=== PATIENT | female | born 1960 | race Caucasian/White ===

== ENCOUNTER → 2017-12-03 07:28 | Outpatient (CLI) | payer OTHER, SELFPAY ==
--- NOTE | 2017-12-02 17:12 | BI_ITS ---
MAMMOGRAPHY - BILATERAL SCREENING REASON FOR EXAM: Female, 56 years old. Routine annual screening examination. PERTINENT HISTORY: Grandmother with breast cancer. TECHNIQUE: Digital bilateral breast raul (3D mammographic acquisition) in the CC and MLO projections. 2-D mediolateral oblique (MLO) and craniocaudad (CC) views of both breasts were obtained. CAD: Full Field Digital Mammography with Computer Added Detection was performed. COMPARISON: Comparison is made with prior abdomen examination dated November 30, 2013. FINDINGS: Breast Composition: There are scattered areas of fibroglandular density. There are no dominant masses or suspicious calcifications. There is a 4.8 mm x 4.2 mm well-defined nodule in the upper outer portion of the left breast. This may represent a small intramammary lymph node. Correlation with ultrasound is recommended. No other significant abnormalities are identified. There has been no significant change since the prior study. BI/SCREENING MAMM (CAD), BILAT IMPRESSION: 4.8 mm x 4.2 mm well-defined nodule in the upper outer aspect of the left breast as described. Correlation with ultrasound is recommended. ASSESSMENT CATEGORY: BIRADS Category 0: Incomplete. Need additional imaging evaluation. A letter regarding these results will be sent to the patient by the facility within 30 days. Approximately 10% of breast cancers are not detected by mammography. A normal mammogram should not delay biopsy of a clinically suspicious abnormality. [id number] Electronically Signed: Juan Gu MD at 8:35 EDT Tel [phone], Service support ,
== END ==
PROVIDERS: Family Provider Preventive Medicine Occupational Medicine; PCP Preventive Medicine Occupational Medicine; Visit Provider Preventive Medicine Occupational Medicine
DX: Z12.31 Encounter for screening mammogram for malignant neoplasm of breast (principal)
CPT/HCPCS: 77063; 77067

== ENCOUNTER → 2017-12-06 09:54 | Outpatient (CLI) | payer OTHER, SELFPAY ==
--- NOTE | 2017-12-06 09:59 | US_ITS ---
STUDY: ULTRASOUND BREAST - LEFT REASON FOR EXAM: Female, 56 years old. Abnormal screening mammogram. TECHNIQUE: Axial and longitudinal images of the LEFT breast were performed with a high resolution ultrasound transducer. COMPARISON: Comparison is made with prior mammogram dated December 02, 2017. FINDINGS: LEFT Breast: There is a 3 mm x 4 mm x 3 mm cyst at the 3:00 position in the breast at 3 cm from nipple. An adjacent cyst is seen measuring 3 mm x 4 mm x 5 mm. US/Breast Limited Unilateral IMPRESSION: The mammographic abnormality corresponds to 2 subcentimeter adjacent cysts at the 3:00 position breast ASSESSMENT CATEGORY: BIRADS Category 2: Benign. A letter regarding these results will be sent to the patient by the facility within 30 days. Electronically Signed: Juan Gu MD at 11:14 EDT Tel [phone], Service support ,
== END ==
PROVIDERS: Family Provider Preventive Medicine Occupational Medicine; PCP Preventive Medicine Occupational Medicine; Visit Provider Preventive Medicine Occupational Medicine
DX: R92.8 Other abnormal and inconclusive findings on diagnostic imaging of breast (principal)
CPT/HCPCS: 76642

== ENCOUNTER 2018-05-22 19:12 | Observation (INO) | payer OTHER, SELFPAY ==
[2018-05-22] VITALS (9 sets, daily range): BP systolic 151–202; BP diastolic 83–106; PULSE 83–100; RESP 14–22; TEMP 36.8; O2SAT 96–100; BMI 30.7
--- NOTE | 2018-05-22 19:47 | ED.VISSUMM ---
- ER Visit Summary Date of Service: 05/22/18 Chief Complaint: chest pain History of Present Illness: The patient is a 57 F presents for chest pain for 3-1/2 hours. Pain is described as a pressure in his substernal, with radiation into the left side of the neck and the posterior neck. 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 Pain is continually worsen, now an 8 out of 10. Worse with breathing. Patient has associated sensation that she needs to cough. She took 2 baby aspirin. She had a similar brief episode that resolved on its own 2 months ago. Family history of coronary artery disease and family history of DVT and aortic aneurysm. Patient denies any medical history personally. She is not on any medications. Physical Examination: Vital signs: afebrile, hypertensive at 202/102, no hypoxia on room air General: well nourished, well developed, in no distress Skin: warm, dry, no rash, no pallor HEENT: normocephalic and atraumatic; PERRL, EOMI, moist mucous membranes Cardiovascular: regular rate and rhythm without murmurs, no peripheral edema, 2+ pulses all distal extremities, neck is supple and nontender no chest wall tenderness Respiratory: No increased work of breathing, lungs are clear to auscultation bilaterally, no rales, rhonchi or wheezing Abdominal: Abdomen is soft, nontender with normoactive bowel sounds, no guarding or rebound, no masses MSK: Moves all extremities, no deformities, normal strength Neuro: Awake and alert, oriented ?4. No facial droop, sensation and motor function intact and symmetric Test Results: Abnormal Lab Results 05/22/18 05/22/18 05/22/18 19:20 19:20 19:20 WBC 7.1 RBC 4.28 Hgb 12.9 Hct 38.3 MCV 89.5 MCH 30.1 MCHC 33.7 RDW 12.5 RDW Differential 40.1 Plt Count 337 MPV 9.3 Immature Gran % (Auto) 0.100 Neut % (Auto) 58.5 Lymph % (Auto) 31.0 [place] % (Auto) 8.0 Eos % (Auto) 1.8 Baso % (Auto) 0.6 Absolute Neuts (auto) 4.2 Absolute Lymphs (auto) 2.21 Total Counted Not Reportable D-Dimer Quant (PE/DVT) < 0.27 L Sodium 141 Potassium 3.4 L Chloride 106 Carbon Dioxide 25.0 Anion Gap 10 BUN 10 Creatinine 0.78 Estim Creat Clear Calc 77.38 Est GFR (MDRD) Af Amer 97 Est GFR (MDRD) Non-Af 80 BUN/Creatinine Ratio 12.8 Glucose 137 H Calcium 8.5 Total Bilirubin 0.40 AST 27 ALT 32 Alkaline Phosphatase 114 Troponin I < 0.015 Total Protein 7.7 Albumin 4.0 Globulin 3.7 Albumin/Globulin Ratio 1.1 Lipase 138 05/22/18 22:13 WBC RBC Hgb Hct MCV MCH MCHC RDW RDW Differential Plt Count MPV Immature Gran % (Auto) Neut % (Auto) Lymph % (Auto) [place] % (Auto) Eos % (Auto) Baso % (Auto) Absolute Neuts (auto) Absolute Lymphs (auto) Total Counted D-Dimer Quant (PE/DVT) Sodium Potassium Chloride Carbon Dioxide Anion Gap BUN Creatinine Estim Creat Clear Calc Est GFR (MDRD) Af Amer Est GFR (MDRD) Non-Af BUN/Creatinine Ratio Glucose Calcium Total Bilirubin AST ALT Alkaline Phosphatase Troponin I < 0.015 Total Protein Albumin Globulin Albumin/Globulin Ratio Lipase Clinical Impression(s) from Imaging Studies Chest X-Ray 05/22/18 20:00 IMPRESSION: Normal x-ray examination of the chest. Electronically Signed: Andrés Lyon MD at 21:16 EST , Service support , Medications Given Discontinued Medications Acetaminophen (Tylenol) 1,000 mg PO X1 ONE Stop: 05/22/18 20:01 Last Admin: 05/22/18 20:08 Dose: 1,000 mg Aspirin (Aspirin, Baby) 162 mg PO X1 STA Stop: 05/22/18 19:45 Last Admin: 05/22/18 19:54 Dose: 162 mg Morphine Sulfate () 4 mg IV X1 ONE Stop: 05/22/18 21:46 Last Admin: 05/22/18 21:57 Dose: 4 mg Nitroglycerin (Nitrostat) 0.4 mg SUBLINGUAL Q5M PERLITA Stop: 05/22/18 19:56 Last Admin: 05/22/18 20:20 Dose: 0.4 mg Admin: 05/22/18 20:09 Dose: 0.4 mg Admin: 05/22/18 19:55 Dose: 0.4 mg Ondansetron HCl (Zofran) 4 mg IV X1 ONE Stop: 05/22/18 21:18 Last Admin: 05/22/18 21:40 Dose: 4 mg Emergency Department Course and Treatment: Patient presents for chest pressure for 3.5 hours, and chest pain workup was performed. More baby aspirin and nitroglycerin. She had improvement of the pain after nitro but developed a headache and was given Tylenol. EKG showed a sinus rhythm with no ischemic changes. Troponin negative. Because of her sensation of shortness of breath and difficulty catching her breath, a d-dimer was included and was negative. No leukocytosis. No significant lab derangements. Chest x-ray showed no infiltrates or other abnormalities. Patient began having the pressure return and became nauseated. She was given Zofran and morphine with improvement. 3-hour EKG and troponin were repeated and remained unchanged. At this point patient was having more significant chest pressure and discomfort. She then shared that she had been having shortness of breath with mild exertion for the last 2 months, which is worsened over the last 4 days. Because of patient's continued chest pressure and her recent development of exertional shortness of breath, patient would benefit from further cardiac workup. Her chest x-ray did not show any signs of acute CHF. Patient was discussed with the hospitalist and admitted for further chest pain workup. Treatment Plan: [] Disposition: [] Impression: Chest pain, exertional shortness of breath This note was generated with [employer] dictation software. It may contain incorrect words, spelling, and punctuation that were not noted in review of the chart prior to signing ED Disposition - Plan for ED Patient: Disposition: Acute Care Hospital [facility] Chief Complaint: Chest Pain
--- NOTE | 2018-05-22 19:51 | ED.DCSUM_ITS ---
- ER Visit Summary Date of Service: 05/22/18 Chief Complaint: chest pain History of Present Illness: The patient is a 57 F presents for chest pain for 3- 1/2 hours. Pain is described as a pressure in his substernal, with radiation into the left side of the neck and the posterior neck. 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 Pain is continually worsen, now an 8 out of 10. Worse with breathing. Patient has associated sensation that she needs to cough. She took 2 baby aspirin. She had a similar brief episode that resolved on its own 2 months ago. Family history of coronary artery disease and family history of DVT and aortic aneurysm. Patient denies any medical history personally. She is not on any medications. Physical Examination: Vital signs: afebrile, hypertensive at 202/102, no hypoxia on room air General: well nourished, well developed, in no distress Skin: warm, dry, no rash, no pallor HEENT: normocephalic and atraumatic; PERRL, EOMI, moist mucous membranes Cardiovascular: regular rate and rhythm without murmurs, no peripheral edema, 2+ pulses all distal extremities, neck is supple and nontender no chest wall tenderness Respiratory: No increased work of breathing, lungs are clear to auscultation bilaterally, no rales, rhonchi or wheezing Abdominal: Abdomen is soft, nontender with normoactive bowel sounds, no guarding or rebound, no masses MSK: Moves all extremities, no deformities, normal strength Neuro: Awake and alert, oriented ?4. No facial droop, sensation and motor function intact and symmetric Test Results: Abnormal Lab Results 05/22/18 05/22/18 05/22/18 19:20 19:20 19:20 WBC 7.1 RBC 4.28 Hgb 12.9 Hct 38.3 MCV 89.5 MCH 30.1 MCHC 33.7 RDW 12.5 RDW Differential 40.1 Plt Count 337 MPV 9.3 Immature Gran % (Auto) 0.100 Neut % (Auto) 58.5 Lymph % (Auto) 31.0 [place] % (Auto) 8.0 Eos % (Auto) 1.8 Baso % (Auto) 0.6 Absolute Neuts (auto) 4.2 Absolute Lymphs (auto) 2.21 Total Counted Not Reportable D-Dimer Quant (PE/DVT) < 0.27 L Sodium 141 Potassium 3.4 L Chloride 106 Carbon Dioxide 25.0 Anion Gap 10 BUN 10 Creatinine 0.78 Estim Creat Clear Calc 77.38 Est GFR (MDRD) Af Amer 97 Est GFR (MDRD) Non-Af 80 BUN/Creatinine Ratio 12.8 Glucose 137 H Calcium 8.5 Total Bilirubin 0.40 AST 27 ALT 32 Alkaline Phosphatase 114 Troponin I < 0.015 Total Protein 7.7 Albumin 4.0 Globulin 3.7 Albumin/Globulin Ratio 1.1 Lipase 138 05/22/18 22:13 WBC RBC Hgb Hct MCV MCH MCHC RDW RDW Differential Plt Count MPV Immature Gran % (Auto) Neut % (Auto) Lymph % (Auto) [place] % (Auto) Eos % (Auto) Baso % (Auto) Absolute Neuts (auto) Absolute Lymphs (auto) Total Counted D-Dimer Quant (PE/DVT) Sodium Potassium Chloride Carbon Dioxide Anion Gap BUN Creatinine Estim Creat Clear Calc Est GFR (MDRD) Af Amer Est GFR (MDRD) Non-Af BUN/Creatinine Ratio Glucose Calcium Total Bilirubin AST ALT Alkaline Phosphatase Troponin I < 0.015 Total Protein Albumin Globulin Albumin/Globulin Ratio Lipase Clinical Impression(s) from Imaging Studies Chest X-Ray 05/22/18 20:00 IMPRESSION: Normal x-ray examination of the chest. Electronically Signed: Andrés Lyon MD at 21:16 EST , Service support , Medications Given Discontinued Medications Acetaminophen (Tylenol) 1,000 mg PO X1 ONE Stop: 05/22/18 20:01 Last Admin: 05/22/18 20:08 Dose: 1,000 mg Aspirin (Aspirin, Baby) 162 mg PO X1 STA Stop: 05/22/18 19:45 Last Admin: 05/22/18 19:54 Dose: 162 mg Morphine Sulfate () 4 mg IV X1 ONE Stop: 05/22/18 21:46 Last Admin: 05/22/18 21:57 Dose: 4 mg Nitroglycerin (Nitrostat) 0.4 mg SUBLINGUAL Q5M PERLITA Stop: 05/22/18 19:56 Last Admin: 05/22/18 20:20 Dose: 0.4 mg Admin: 05/22/18 20:09 Dose: 0.4 mg Admin: 05/22/18 19:55 Dose: 0.4 mg Ondansetron HCl (Zofran) 4 mg IV X1 ONE Stop: 05/22/18 21:18 Last Admin: 05/22/18 21:40 Dose: 4 mg Emergency Department Course and Treatment: Patient presents for chest pressure for 3.5 hours, and chest pain workup was performed. More baby aspirin and nitroglycerin. She had improvement of the pain after nitro but developed a headache and was given Tylenol. EKG showed a sinus rhythm with no ischemic changes. Troponin negative. Because of her sensation of shortness of breath and difficulty catching her breath, a d-dimer was included and was negative. No leukocytosis. No significant lab derangements. Chest x-ray showed no infiltrates or other abnormalities. Patient began having the pressure return and became nauseated. She was given Zofran and morphine with improvement. 3- hour EKG and troponin were repeated and remained unchanged. At this point patient was having more significant chest pressure and discomfort. She then shared that she had been having shortness of breath with mild exertion for the last 2 months, which is worsened over the last 4 days. Because of patient's continued chest pressure and her recent development of exertional shortness of breath, patient would benefit from further cardiac workup. Her chest x-ray did not show any signs of acute CHF. Patient was discussed with the hospitalist and admitted for further chest pain workup. Treatment Plan: [] Disposition: [] Impression: Chest pain, exertional shortness of breath This note was generated with [employer] dictation software. It may contain incorrect words, spelling, and punctuation that were not noted in review of the chart prior to signing ED Disposition - Plan for ED Patient: Disposition: Acute Care Hospital [facility] Chief Complaint: Chest Pain
--- NOTE | 2018-05-22 19:53 | ED.RN ---
NO OLD EKG
[2018-05-22] MEDS: Aspirin 81 MG TAB.CHEW 162 MG PO (19:54)
[2018-05-22 20:00] LABS: Absolute Lymphocyte Count 2.21 X10^3/ul (0.83-4.51); Absolute Neutrophil Count 4.2 X10^3/uL (2.0-7.7); Basophil# 0.04 X10^3/uL; Basophil% 0.6 % (0-1); Eosinophil# 0.13 X10^3/uL; Eosinophils% 1.8 % (0-5); Hematocrit 38.3 % (37-47); Hemoglobin 12.9 g/dl (12.0-15.0); Lymphocyte # 2.21 X10^3/ul (4.0); Mean Corp Hgb Conc 33.7 g/gl (32-36); Mean Corpuscular Hgb 30.1 pg (27.0-32.0); Mean Corpuscular Volume 89.5 fL (81-99); Mean Platelet Vol. 9.3 fl (6.2-12.0); Monocyte# 0.57 X10^3/uL; Neutrophil # 4.17 X10^3/uL (2.7-7.7); Neutrophil % 58.5 % (47-70); Platelet Count 337 K/mm3 (150-450); RBC Distribution Width CV 12.5 % (11.6-14.6); RBC Distribution Width SD 40.1 fl (35.1-43.9); Red Blood Count 4.28 M/mm3 (4.2-5.4); White Blood Count 7.1 K/mm3 (4.4-11.0)
--- NOTE | 2018-05-22 20:00 | RAD_ITS ---
STUDY: X-RAY CHEST REASON FOR EXAM: Female, 57 years old. Chest pain TECHNIQUE: Frontal and lateral views of the chest. COMPARISON: None. FINDINGS: The lungs are clear and expanded. There is no demonstrated pleural abnormality. Normal size heart. Normal mediastinum and sherri. Normal visualized pulmonary arteries. Normal visualized aortic arch and descending thoracic aorta. Normal visualized thoracic spine. Normal visualized ribs, clavicles, and shoulders. There is no demonstrated abnormality of the visualized soft tissue structures of the upper abdomen. RAD/Chest PA and Lateral IMPRESSION: Normal x-ray examination of the chest. Electronically Signed: Andrés Lyon MD at 21:16 EST , Service support ,
[2018-05-22 20:01] LABS: POSITIVE COUNT NO; POSITIVE DIFFERENTIAL NO; POSITIVE MORPHOLOGY NO
[2018-05-22 20:06] LABS: D-Dimer Quantitative (DVT/PE) < 0.27 FEU/ug/m (0.27-0.49)
[2018-05-22] MEDS: Acetaminophen 500 MG Tablet 1000 MG PO (20:08)
[2018-05-22 20:23] LABS: ALB/GLOB Ratio 1.1 RATIO (0.9-2.4); AST(SGOT) 27 U/L (15-37); Alanine Aminotransfer ALT/SGPT 32 U/L (13-56); Alkaline Phosphatase 114 U/L (45-117); Anion Gap 10 (5-15); BUN 10 mg/dL (7-18); BUN/Creat Ratio 12.8 RATIO (10-20); Calcium,Total 8.5 mg/dL (8.5-10.1); Chloride 106 mmol/L (98-107); Creatinine, Serum 0.78 mg/dL (0.55-1.02); EST Glomerular Filtration Rate 80 mL/min (>60); Est Glom Filt Rate - Afr Amer 97 mL/min (>60); Estimated Creatinine Clearance 77.38 ml/min; Globulin 3.7 g/dL (2.2-4.2); Glucose 137 mg/dL (74-106); Lipase 138 U/L (73-393); Potassium 3.4 mmol/L (3.5-5.1); Protein, Total 7.7 g/dL (6.4-8.2); Sodium Level 141 mmol/L (136-145)
[2018-05-22] MEDS: Ondansetron 4 MG/2 ML Vial IV (21:40)
[2018-05-22] MEDS: Morphine 4 MG/ML Syringe IV ×2 (21:57→23:39)
--- NOTE | 2018-05-22 21:58 | ED.RN ---
NO OLD EKG
--- NOTE | 2018-05-22 23:09 | HP.PCM_ITS ---
History of Present Illness Date of Admission: 05/23/18 Chief Complaint: chest pain The patient is a 57 year old F with no significant past medical history. She was admitted through the ED with a complaint of chest pain of one days duration. Chest pain was pressure-like and retrosternal, radiates to the left side of her neck and arm and was still mild numbness of her right arm. Says she has had chest pain like this in the past but it was not this severe. She had associated shortness of breath and lightheadedness. She denies any history of DVT or any history of long distance travel or weight loss but admits to having a sedentary job. Her mother had a PE in her 20s and she does not know the cause of it. Review of systems otherwise negative. Chest pain had no relieving factors. On admission the ED, blood pressure was 202/102, was otherwise medically stable. CBC and CMP are within normal limits. Chest x-ray showed no acute cardia pulmonary process. EKG showed no acute ST changes initial troponin was negative. He has been admitted for chest pain to rule out ACS. 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 Denies: Chest Tightness, Edema, Heaviness, Orthopnea, Palpitations Respiratory: Reports: Shortness of Breath, Shortness of breath upon exertion. Denies: Cough, Shortness of breath at rest, Sputum production Gastrointestinal: Denies: Abdominal Pain, Nausea, Vomiting Genitourinary: Denies: Dysuria Musculoskeletal: Denies: Joint Pain, Joint Tenderness Skin: Denies: Rash, Wounds Neurological: Denies: Numbness, Tingling, Focal weakness Psychiatric: Denies: Anxiety, Depression, Homicidal Ideations, Suicidal Ideations Hematologic/ Lymphatic: Denies: Easy Bruising, Easy Bleeding VTE Information - Inpt Only VTE Present on Admission: No VTE Pharm Prophylaxis ordered?: Yes - Physical Exam General: Alert, Oriented x3, Cooperative, No apparent distress HEENT: Atraumatic, PERRLA, EOMI, Normocephalic Oral: Moist Mucosa Neck: Supple, No JVD, Negative Carotid Bruits Lungs: Clear to auscultation, Normal air movement, No rhonchi, No wheeze, No rales Cardiovascular: Regular rate, Regular Rhythm, Normal S1, Normal S2, No murmurs Abdomen: Bowel Sounds Present, Soft, Non Tender, Non-Distended, No Hepato- splenomegaly Extremities: No clubbing, No cyanosis, No edema, Capillary Refill Less than 3 Seconds Skin: No rashes, No breakdown Musculoskeletal: No Tenderness to Palpation of Joints or Extremities Lymphatic: No Cervical, Supraclavicular, or Inguinal Adenopathy Neurological: Cranial nerves II-XII grossly intact Psych/Mental Status: Normal Affect, Appropriate, Alert and oriented to time, place, person, mood and affect Vital Signs Temp Pulse Resp BP Pulse Ox 98.3 F 89 16 153/94 H 96 05/22/18 19:13 05/22/18 22:00 05/22/18 22:00 05/22/18 22:00 05/22/18 22:00 Oxygen Delivery Method Room Air Weight: 195 lb 15.855 oz Body Mass Index (BMI) 30.7 Laboratory Tests Past 24 Hrs 05/22/18 05/22/18 05/22/18 19:20 19:20 19:20 WBC 7.1 RBC 4.28 Hgb 12.9 Hct 38.3 MCV 89.5 MCH 30.1 MCHC 33.7 RDW 12.5 RDW Differential 40.1 Plt Count 337 MPV 9.3 Immature Gran % (Auto) 0.100 Neut % (Auto) 58.5 Lymph % (Auto) 31.0 [place] % (Auto) 8.0 Eos % (Auto) 1.8 Baso % (Auto) 0.6 Absolute Neuts (auto) 4.2 Absolute Lymphs (auto) 2.21 Total Counted Not Reportable D-Dimer Quant (PE/DVT) < 0.27 L Sodium 141 Potassium 3.4 L Chloride 106 Carbon Dioxide 25.0 Anion Gap 10 BUN 10 Creatinine 0.78 Estim Creat Clear Calc 77.38 Est GFR (MDRD) Af Amer 97 Est GFR (MDRD) Non-Af 80 BUN/Creatinine Ratio 12.8 Glucose 137 H Calcium 8.5 Total Bilirubin 0.40 AST 27 ALT 32 Alkaline Phosphatase 114 Troponin I < 0.015 Total Protein 7.7 Albumin 4.0 Globulin 3.7 Albumin/Globulin Ratio 1.1 Lipase 138 05/22/18 22:13 WBC RBC Hgb Hct MCV MCH MCHC RDW RDW Differential Plt Count MPV Immature Gran % (Auto) Neut % (Auto) Lymph % (Auto) [place] % (Auto) Eos % (Auto) Baso % (Auto) Absolute Neuts (auto) Absolute Lymphs (auto) Total Counted D-Dimer Quant (PE/DVT) Sodium Potassium Chloride Carbon Dioxide Anion Gap BUN Creatinine Estim Creat Clear Calc Est GFR (MDRD) Af Amer Est GFR (MDRD) Non-Af BUN/Creatinine Ratio Glucose Calcium Total Bilirubin AST ALT Alkaline Phosphatase Troponin I < 0.015 Total Protein Albumin Globulin Albumin/Globulin Ratio Lipase Diagnostic Data Chest X-Ray 05/22/18 20:00 IMPRESSION: Normal x-ray examination of the chest. Electronically Signed: Andrés Lyon MD at 21:16 EST , Service support , Assessment/Plan 57-year-old female admitted with a complaint of chest pain and found to have elevated blood pressure. 1. Chest pain to rule out ACS * Initial troponin was negative and EKG showed no acute ST changes. * D-dimer was also negative. * Cycle troponins. * For stress test in the morning. * 2. Hypertensive emergency * Blood pressure was in the 200s systolic on admission. Has no history of hypertension. * Blood pressure was down in the 140s at time of review. * IV hydralazine as needed for systolic more than 160 mmHg. * Start p.o. amlodipine 10 mg daily. * 2D echo in the morning * 3. Hypokalemia: Potassium is 3.4. Replace and monitor. DVT prophylaxis: Heparin Code Visit OBSV E&M: 35520 Initial observation care L3
[2018-05-23] VITALS (10 sets, daily range): BP systolic 136–158; BP diastolic 81–95; PULSE 65–103; RESP 9–16; TEMP 36.6–37.1; O2SAT 94–100; BMI 28.0; BMI 28.1
--- NOTE | 2018-05-23 01:24 | NURSING ---
Pt reports change in character of CP. EKG taken and showed now significant change. Will continue to monitor. Plan for Stress ECHO today.
[2018-05-23] MEDS: Acetaminophen 325 MG Tablet 650 MG PO (02:16)
[2018-05-23] MEDS: Aspirin 81 MG TAB.CHEW PO (05:36)
[2018-05-23 06:37] LABS: Absolute Lymphocyte Count 2.11 X10^3/ul (0.83-4.51); Absolute Neutrophil Count 3.7 X10^3/uL (2.0-7.7); Basophil# 0.04 X10^3/uL; Basophil% 0.6 % (0-1); Eosinophil# 0.12 X10^3/uL; Eosinophils% 1.8 % (0-5); Hematocrit 37.9 % (37-47); Hemoglobin 12.8 g/dl (12.0-15.0); Lymphocyte # 2.11 X10^3/ul (4.0); Lymphocyte % 31.8 % (19-41); Mean Corp Hgb Conc 33.8 g/gl (32-36); Mean Corpuscular Hgb 30.6 pg (27.0-32.0); Mean Corpuscular Volume 90.7 fL (81-99); Mean Platelet Vol. 9.6 fl (6.2-12.0); Monocyte# 0.66 X10^3/uL; Neutrophil # 3.69 X10^3/uL (2.7-7.7); Neutrophil % 55.6 % (47-70); Platelet Count 308 K/mm3 (150-450); RBC Distribution Width CV 12.3 % (11.6-14.6); RBC Distribution Width SD 39.8 fl (35.1-43.9); Red Blood Count 4.18 M/mm3 (4.2-5.4); White Blood Count 6.6 K/mm3 (4.4-11.0)
[2018-05-23 06:41] LABS: POSITIVE COUNT NO; POSITIVE DIFFERENTIAL NO; POSITIVE MORPHOLOGY NO; Prothrombin Time (Protime)PT. 13.4 SECONDS (11.7-14.9)
[2018-05-23 06:45] LABS: Anion Gap 8 (5-15); BUN 10 mg/dL (7-18); BUN/Creat Ratio 14.6 RATIO (10-20); Calcium,Total 8.6 mg/dL (8.5-10.1); Chloride 108 mmol/L (98-107); Creatinine, Serum 0.68 mg/dL (0.55-1.02); EST Glomerular Filtration Rate 94 mL/min (>60); Est Glom Filt Rate - Afr Amer 114 mL/min (>60); Estimated Creatinine Clearance 95.39 ml/min; Glucose 90 mg/dL (74-106); Potassium 4.1 mmol/L (3.5-5.1); Sodium Level 141 mmol/L (136-145)
[2018-05-23 07:02] LABS: Partial Thromboplast Time 31.5 Seconds (24.1-36.2)
--- NOTE | 2018-05-23 07:33 | NURSING ---
Pt wanting more information on advanced directives. Dayshift RN aware.
--- NOTE | 2018-05-23 08:00 | STEWCON_ITS ---
Reason For Study: Chest Pain Stress Results Protocol: Oscar Protocol Maximum Predicted HR: 163 bpm Target HR: 139 bpm % Maximum Predicted HR: 110 % DurationHeart Rate Stage (mm:ss) (bpm) BP Comment Baseline 73 130/902/10 Chest Pain; Diluted Definity 2 ML Given Oscar Protocol Stage I 3:00 150 180/722/10 Chest Pain Oscar Protocol Stage II 3:00 164 170/742/10 Chest Pain; Mild Dyspnea Oscar Protocol Stage III 1:30 179 / 2/10 Chest Pain; Moderate Dyspnea Recovery 99 142/862/10 Chest Pain Stress Duration: 7:30 mm:ss Maximum Stress HR: 179 bpm METS: 10 Baseline Echocardiogram Findings The estimated ejection fraction is 65 %. Stress Echo Wall motion Data Resting WM Intermediate WM Stress WM Resting Wall Motion Wall Motion Stress No regional wall motion No regional wall motion abnormalities noted. abnormalities noted. EKG Data Normal intervals are noted. The patient exercised according to the regular Oscar protocol for a total duration of 7:30. The maximum heart rate attained was 179 beats per minute. This was 109% of maximum predicted heart rate. The patient exercised into stage 3 of the Oscar protocol. During stress, there were no ST or T wave changes noted to suggest ischemia. No arrhythmias noted. Interpretation Summary The study was technically difficult. Contrast injection was performed. The estimated ejection fraction is 65 %. Normal, adequate, treadmill echocardiogram. Negative for ischemia by EKG and echocardiographic criteria. Patient had baseline atypical 2 out of 10 chest pain prior to test initiation, which remained the case during test. Test terminated due to moderate dyspnea. Hypertensive blood pressure response to exercise. Average exercise capacity for age. Final LVEF is 75%. No complications. Doppler Measurements & Calculations TR max caridad: 265.1 cm/sec TR max P.1 mmHg Ordering Physician: Cordelia Amaya Referring Physician: Guzman Hernandez Performed By: Marianne Lane, KENNACS, RVT
[2018-05-23] MEDS: amLODIPine 10 MG Tablet PO (10:06)
--- NOTE | 2018-05-23 13:25 | DCINST_ITS ---
- Discharge Diagnoses Reason(s) for Visit for Discharge Instructions: Chest pain, elevated BP You will use the following diet at home:: Cardiac Your food should be the consistency of: Regular Your liquids should be the consistency of: Regular/Thin Discharge Activity: Return to Normal Activity Additional Instructions: Take all your medications. Measure your BP everyday about the same time. Follow-up with your primary doctor within 2 weeks with a log of your BP readings. Allergies/Adverse Reactions: Allergies Sulfa (Sulfonamide Antibiotics) Allergy (Verified 05/22/18 19:13) Hives trimethoprim Allergy (Verified 05/22/18 19:13) Hives Medications to take at Discharge Amlodipine [Norvasc] 10 mg PO DAILY #30 tab 05/23/18 Aspirin [Aspirin, Baby] 81 mg PO DAILY@0800 #30 tab.chew 05/23/18 The following prescriptions were given: Amlodipine [Norvasc] 10 mg PO DAILY #30 tab Aspirin [Aspirin, Baby] 81 mg PO DAILY@0800 #30 tab.chew Primary Care Physician: Serjio Moreno DO [Primary Care Provider] - Please follow up with your Primary Care Physician in: within 2 weeks Test Results: Test results from this visit will be discussed in further detail at your follow- up appointment, if applicable. Proposed Discharge Date: 05/23/18
--- NOTE | 2018-05-23 14:15 | PCM.DC.SUM ---
Discharge Date and Diagnosis Date of Admission: 05/23/18 Date of Discharge: 05/23/18 - Primary Discharge Diagnosis Chest pain, ACS ruled out Hypertensive emergency Hypokalemia - Secondary Discharge Diagnosis Hypertension Hospital Course and Treatment Imaging Results: 05/23/18 08:00 Stress Test Echo W/Contrast [ECHO] Routine Clinical Impression(s) from Imaging Studies Chest X-Ray 05/22/18 20:00 IMPRESSION: Normal x-ray examination of the chest. Electronically Signed: Andrés Lyon MD at 21:16 EST , Service support , None Operations: None Procedures: 2-D Echocardiogram, Stress test Summary of Care Provided: The patient is a 57 year old F with no significant past medical history was admitted with complaints of chest pain ongoing for 1 day. Chest pain was described as pressure-like, retrosternal and radiates to left side of the neck and associated with numbness of the right. Admitting blood pressure was [id number]. Blood work was unremarkable. Chest x-ray showed no acute cardiopulmonary process. EKG was unremarkable. Troponins were negative. Patient was admitted to telemetry bed with no acute events overnight. She underwent a stress test that was negative. She was started on amlodipine for hypertensive emergency with better control of blood pressure or discharge. Subjective: On the day of discharge, patient had no complaints. Denied any dizziness or shortness of breath. Slight headache after being kept n.p.o. for stress test. Objective: Physical Exam General: Alert, Oriented x3, Cooperative, No apparent distress HEENT: Atraumatic, PERRLA, EOMI, Normocephalic Oral: Moist Mucosa Neck: Supple, No JVD, Negative Carotid Bruits Lungs: Clear to auscultation, Normal air movement, No rhonchi, No wheeze, No rales Cardiovascular: Regular rate, Regular Rhythm, Normal S1, Normal S2, No murmurs Abdomen: Bowel Sounds Present, Soft, Non Tender, Non-Distended, No Hepato-splenomegaly Extremities: No clubbing, No cyanosis, No edema, Capillary Refill Less than 3 Seconds Skin: No rashes, No breakdown Musculoskeletal: No Tenderness to Palpation of Joints or Extremities Lymphatic: No Cervical, Supraclavicular, or Inguinal Adenopathy Neurological: Cranial nerves II-XII grossly intact Psych/Mental Status: Normal Affect, Appropriate, Alert and oriented to time, place, person, mood and affect - Physical Exam Vital Signs Temp Pulse Resp BP Pulse Ox 98.7 F 83 16 136/86 H 100 05/23/18 13:52 05/23/18 13:52 05/23/18 13:52 05/23/18 13:52 05/23/18 13:52 Oxygen Delivery Method Room Air Weight: 86.2 kg Body Mass Index (BMI) 28.0 Intake and Output for Last 24 Hours 05/21/18 05/22/18 05/23/18 23:59 23:59 23:59 Intake Total 70 / 70 Balance 70 / 70 Laboratory Tests Past 24 Hrs 05/22/18 05/22/18 05/22/18 19:20 19:20 19:20 WBC 7.1 RBC 4.28 Hgb 12.9 Hct 38.3 MCV 89.5 MCH 30.1 MCHC 33.7 RDW 12.5 RDW Differential 40.1 Plt Count 337 MPV 9.3 Immature Gran % (Auto) 0.100 Neut % (Auto) 58.5 Lymph % (Auto) 31.0 [place] % (Auto) 8.0 Eos % (Auto) 1.8 Baso % (Auto) 0.6 Absolute Neuts (auto) 4.2 Absolute Lymphs (auto) 2.21 Total Counted Not Reportable PT INR APTT D-Dimer Quant (PE/DVT) < 0.27 L Sodium 141 Potassium 3.4 L Chloride 106 Carbon Dioxide 25.0 Anion Gap 10 BUN 10 Creatinine 0.78 Estim Creat Clear Calc 77.38 Est GFR (MDRD) Af Amer 97 Est GFR (MDRD) Non-Af 80 BUN/Creatinine Ratio 12.8 Glucose 137 H Calcium 8.5 Total Bilirubin 0.40 AST 27 ALT 32 Alkaline Phosphatase 114 Troponin I < 0.015 Total Protein 7.7 Albumin 4.0 Globulin 3.7 Albumin/Globulin Ratio 1.1 Lipase 138 05/22/18 05/23/18 05/23/18 22:13 00:45 05:44 WBC RBC Hgb Hct MCV MCH MCHC RDW RDW Differential Plt Count MPV Immature Gran % (Auto) Neut % (Auto) Lymph % (Auto) [place] % (Auto) Eos % (Auto) Baso % (Auto) Absolute Neuts (auto) Absolute Lymphs (auto) Total Counted PT INR APTT D-Dimer Quant (PE/DVT) Sodium 141 Potassium 4.1 Chloride 108 H Carbon Dioxide 25.0 Anion Gap 8 BUN 10 Creatinine 0.68 Estim Creat Clear Calc 95.39 Est GFR (MDRD) Af Amer 114 Est GFR (MDRD) Non-Af 94 BUN/Creatinine Ratio 14.6 Glucose 90 Calcium 8.6 Total Bilirubin AST ALT Alkaline Phosphatase Troponin I < 0.015 < 0.015 Total Protein Albumin Globulin Albumin/Globulin Ratio Lipase 05/23/18 05/23/18 05:44 05:44 WBC 6.6 RBC 4.18 L Hgb 12.8 Hct 37.9 MCV 90.7 MCH 30.6 MCHC 33.8 RDW 12.3 RDW Differential 39.8 Plt Count 308 MPV 9.6 Immature Gran % (Auto) 0.200 Neut % (Auto) 55.6 Lymph % (Auto) 31.8 [place] % (Auto) 10.0 Eos % (Auto) 1.8 Baso % (Auto) 0.6 Absolute Neuts (auto) 3.7 Absolute Lymphs (auto) 2.11 Total Counted Not Reportable PT 13.4 INR 1.0 APTT 31.5 D-Dimer Quant (PE/DVT) Sodium Potassium Chloride Carbon Dioxide Anion Gap BUN Creatinine Estim Creat Clear Calc Est GFR (MDRD) Af Amer Est GFR (MDRD) Non-Af BUN/Creatinine Ratio Glucose Calcium Total Bilirubin AST ALT Alkaline Phosphatase Troponin I Total Protein Albumin Globulin Albumin/Globulin Ratio Lipase Discharge Diet: Low fat/ Low Cholesterol, 2000 mg Sodium Diet Discharge Activity: Return to Normal Activity Home Medications: Medications to take at Discharge Amlodipine [Norvasc] 10 mg PO DAILY #30 tab 05/23/18 Amlodipine [Norvasc] 10 mg PO DAILY #5 tablet 05/23/18 Aspirin [Aspirin, Baby] 81 mg PO DAILY@0800 #30 tab.chew 05/23/18 Following Prescrptions Were Given to Patient: Amlodipine [Norvasc] 10 mg PO DAILY #30 tab Amlodipine [Norvasc] 10 mg PO DAILY #5 tablet Aspirin [Aspirin, Baby] 81 mg PO DAILY@0800 #30 tab.chew Primary Care Physician: Serjio Moreno DO [Primary Care Provider] - Please follow up with your Primary Care Physician in: within 2 weeks Disposition: Home Minutes spent on discharge:: 40 Patient Condition:: Stable Medical Necessity - Tobacco Use Smoking Status: Never smoker Tobacco Use: Non-smoker Meaningful Use Info Meaningful Use Diagnoses (Choose all that apply): None applicable Code Visit OBSV E&M: 30747 Observation care discharge
--- NOTE | 2018-05-23 14:54 | CHAPLAIN ---
Type of Pastoral Visit _x__ Initial Visit ___ Follow-up Visit ___ On-call Visit ___ General Patient Visit ___ Spiritual Assessment ___ Family Conference ___ Bereavement ___ Rapid Response ___ Code Blue ___ Other (describe below) Pastoral Care Referral From _x__ Patient ___ Family ___ Nurse ___ Physician ___ Brick Paving Checker ___ Beverage Inspection Machine Tender ___ Other (describe below) Sacrament/Intervention _x__ Active listening ___ Anointing ___ Scientologist ___ Bereavement ___ Communion ___ Margaux exploration ___ _x__ Life review ___ Prayer ___ Reconciliation ___ Sacrament of Sick _x__ Supportive presence ___ Wedding ___ Other (describe below) Pastoral Comments
== END 2018-05-23 14:13 | disposition home or self-care (01) ==
LOC: ED 19:29 → PCU 23:38
PROVIDERS: Admitting Provider Student in an Organized Health Care Education/Training Program; Emergency Provider Emergency Medicine; Family Provider Preventive Medicine Occupational Medicine; PCP Preventive Medicine Occupational Medicine; Visit Provider Internal Medicine
DX: R07.89 Other chest pain (principal); I16.1 Hypertensive emergency; I10 Essential (primary) hypertension; E87.6 Hypokalemia; G44.40 Drug-induced headache, not elsewhere classified, not intractable; T46.3X5A Adverse effect of coronary vasodilators, initial encounter; R06.02 Shortness of breath; R20.0 Anesthesia of skin; Z82.49 Family history of ischemic heart disease and other diseases of the circulatory system
CPT/HCPCS: 36415; 71046; 80048; 80053; 83690; 84484; 85025; 85379; 85610; 85730; 93005; 93017; 93350; 96374; 96375; 96376; 99218; 99284; Q9957; A4216; C8928; G0378; J2405

== ENCOUNTER → 2018-06-13 12:10 | Outpatient (CLI) | payer OTHER, SELFPAY ==
[2018-05-23 00:37] VITALS: BMI 28.0
[2018-06-13 14:26] LABS: Thyroid Stim Hormone (TSH) 0.88 uIU/mL (0.358-3.74)
== END ==
PROVIDERS: Family Provider Preventive Medicine Occupational Medicine; PCP Preventive Medicine Occupational Medicine; Referring Provider Preventive Medicine Occupational Medicine; Visit Provider Preventive Medicine Occupational Medicine
DX: I10 Essential (primary) hypertension (principal)
CPT/HCPCS: 36415; 84443

== ENCOUNTER → 2018-07-19 11:03 | Outpatient (CLI) | payer OTHER, SELFPAY ==
[2018-07-19 08:44] VITALS: BMI 27.0
[2018-07-19 11:41] LABS: Absolute Lymphocyte Count 1.45 X10^3/ul (0.83-4.51); Absolute Neutrophil Count 3.6 X10^3/uL (2.0-7.7); Basophil# 0.03 X10^3/uL; Basophil% 0.5 % (0-1); Eosinophils% 1.8 % (0-5); Hematocrit 41.1 % (37-47); Hemoglobin 13.5 g/dl (12.0-15.0); Lymphocyte # 1.45 X10^3/ul (4.0); Lymphocyte % 25.7 % (19-41); Mean Corp Hgb Conc 32.8 g/gl (32-36); Mean Corpuscular Hgb 29.6 pg (27.0-32.0); Mean Corpuscular Volume 90.1 fL (81-99); Mean Platelet Vol. 9.5 fl (6.2-12.0); Monocyte% 8.8 % (0-10); Neutrophil # 3.56 X10^3/uL (2.7-7.7); Platelet Count 357 K/mm3 (150-450); RBC Distribution Width CV 12.4 % (11.6-14.6); RBC Distribution Width SD 40.3 fl (35.1-43.9); Red Blood Count 4.56 M/mm3 (4.2-5.4); White Blood Count 5.7 K/mm3 (4.4-11.0)
[2018-07-19 11:44] LABS: POSITIVE COUNT NO; POSITIVE DIFFERENTIAL NO; POSITIVE MORPHOLOGY NO
[2018-07-19 11:49] LABS: Prothrombin Time (Protime)PT. 13.5 SECONDS (11.7-14.9)
[2018-07-19 12:14] LABS: AST(SGOT) 26 U/L (15-37); Alanine Aminotransfer ALT/SGPT 35 U/L (13-56); Albumin, Serum 4.2 g/dL (3.2-5.0); Alkaline Phosphatase 121 U/L (45-117); Anion Gap 9 (5-15); BUN 13 mg/dL (7-18); BUN/Creat Ratio 15.3 RATIO (10-20); Bilirubin, Direct 0.13 mg/dL (0.00-0.30); Calcium,Total 9.7 mg/dL (8.5-10.1); Chloride 104 mmol/L (98-107); Cholesterol 213 mg/dL (200); Creatinine, Serum 0.85 mg/dL (0.55-1.02); EST Glomerular Filtration Rate 73 mL/min (>60); Est Glom Filt Rate - Afr Amer 88 mL/min (>60); Globulin 4.1 g/dL (2.2-4.2); Glucose 100 mg/dL (74-106); High Density Lipoprotein 35 mg/dL; Potassium 4.2 mmol/L (3.5-5.1); Protein, Total 8.3 g/dL (6.4-8.2); Sodium Level 142 mmol/L (136-145); Triglycerides 184 mg/dL; Very Low Density Lipoprotein 37 mg/dL (5-40)
== END ==
PROVIDERS: Family Provider Preventive Medicine Occupational Medicine; PCP Preventive Medicine Occupational Medicine; Referring Provider Internal Medicine Cardiovascular Disease; Visit Provider Internal Medicine Cardiovascular Disease
DX: R06.02 Shortness of breath (principal); I10 Essential (primary) hypertension; R07.9 Chest pain, unspecified
CPT/HCPCS: 36415; 80048; 80061; 80076; 85025; 85610

== ENCOUNTER → 2018-07-20 13:09 | Outpatient (CLI) | payer OTHER, SELFPAY ==
[2018-05-23 00:37] VITALS: BMI 28.0
[2018-07-19 08:44] VITALS: BMI 27.0
--- NOTE | 2018-07-20 13:12 | CDU_ITS ---
Reason For Study: HYPERTENSION Rt. Velocities/BP Lt. Velocities/BP Prox CCA 95.0/25.8 cm/sec. Prox CCA 108.0/21.1 cm/sec. Mid CCA 106.0/27.6 cm/sec. Mid CCA 111.0/26.4 cm/sec. Dist CCA 93.8/24.0 cm/sec. Dist CCA 97.9/28.7 cm/sec. Prox ICA 84.4/25.8 cm/sec. Prox ICA 69.8/27.6 cm/sec. Mid ICA 83.3/27.6 cm/sec. Mid ICA 76.8/28.7 cm/sec. Dist ICA 78.6/25.2 cm/sec. Dist ICA 70.4/29.3 cm/sec. Rt. ICA/CCA = .80. Lt. ICA/CCA = .69. Prox ECA 96.7/18.2 cm/sec. Prox ECA 99.1/19.3 cm/sec. Rt. Vert. 51.6/15.2 cm/sec. Lt. Vert. 44.0/15.2 cm/sec. Right Extracranial There is intimal thickening but no significant atherosclerotic plaque noted in the right common carotid artery. There is intimal thickening but no significant atherosclerotic plaque noted in the right internal carotid artery. There is intimal thickening but no significant atherosclerotic plaque noted in the right external carotid artery. Antegrade flow is noted in the right vertebral artery. There is heterogeneous, irregular atherosclerotic plaque noted in the right bulb. Left Extracranial There is intimal thickening but no significant atherosclerotic plaque noted in the left common carotid artery. There is no significant atherosclerotic plaque noted in the left internal carotid artery. There is no significant atherosclerotic plaque noted in the left external carotid artery. Antegrade flow is noted in the left vertebral artery. There is heterogeneous, irregular atherosclerotic plaque noted in the left bulb. Procedure Carotid Duplex 81024. Exam performed in department. Interpretation Summary Minimal plague at the proximal right internal carotid with <50% stenosis. No significant disease right external carotid No significant plague left internal and external carotids with <50% stenosis of the internal carotid. Patent and antegrade vertebrals bilaterally Ordering Physician: Serjio Moreno Referring Physician: Guzman Hernandez MD Performed By: Courtney Bustillos RVT
== END ==
PROVIDERS: Family Provider Preventive Medicine Occupational Medicine; PCP Preventive Medicine Occupational Medicine; Referring Provider Preventive Medicine Occupational Medicine; Visit Provider Preventive Medicine Occupational Medicine
DX: I10 Essential (primary) hypertension (principal)
CPT/HCPCS: 93880

== ENCOUNTER → 2018-07-21 08:56 | Outpatient (CLI) | payer OTHER, SELFPAY ==
[2018-07-19 08:44] VITALS: BMI 27.0
--- NOTE | 2018-07-21 08:57 | ECHOD_ITS ---
Reason For Study: CHEST PAIN Procedure This was a 2D Doppler, Color Flow transthoracic echocardiogram. Exam performed in department. Left Ventricle Normal size and thickness. The estimated ejection fraction is 65 %. Stage 1 diastolic dysfunction. No regional wall motion abnormalities noted. Right Ventricle Normal size and thickness. Normal systolic function. Atria Normal left atrium. Normal right atrium. Normal atrial septum. Mitral Valve Mild focal mitral valve thickening. Mild (1+) posteriorly directed mitral valve insufficiency. Tricuspid Valve Normal tricuspid valve. Mild (1+) tricuspid valve insufficiency. Right ventricular systolic pressure estimated to be 30 mmHg. Aortic Valve Trisinus/trileaflet aortic valve. Trivial aortic valve insufficiency. Pulmonic Valve Normal pulmonic valve. Trivial pulmonic valve insufficiency. Great Vessels Normal aortic root. Normal arch. Normal inferior vena cava. Inferior vena cava collapse with respiration. Pericardium/Pleural No pericardial effusion. MMode/2D Measurements & Calculations LVIDd: 4.0 cm IVSd: 0.96 cm Ao root diam: 3.3 cm LVIDs: 2.7 cm LVPWd: 0.76 cm RVDd: 3.4 cm FS: 32.8 % LAV(MOD-bp): 58.9 ml LVAd ap4: 34.5 cm2 SV(MOD-sp4): 69.8 ml LAV(MOD-bp) Indexed: 29.3 ml/m2 EDV(MOD-sp4): 104.9 ml LAV(MOD-sp2): 48.9 ml EDV(sp4-el): 113.7 ml LAV(MOD-sp4): 60.8 ml LVAs ap4: 16.8 cm2 ESV(MOD-sp4): 35.1 ml ESV(sp4-el): 36.3 ml EF(MOD-sp4): 66.5 % EF(sp4-el): 68.1 % SV(sp4-el): 77.4 ml LA A4 area: 20.6 cm2 LA dimension(2D): 3.8 cm RA A4 area: 10.5 cm2 Time Measurements MV dec time: 0.23 sec Doppler Measurements & Calculations MV E max willie: 105.8 cm/sec Lat Peak E' Willie: 9.0 cm/sec Med Peak E' Willie: 7.9 cm/sec MV A max willie: 154.9 cm/sec E/E' lat: 11.8 E/E' med: 13.3 MV E/A: 0.68 Ao V2 max: 178.4 cm/sec LV V1 max: 130.1 cm/sec PA V2 max: 108.9 cm/sec Ao max P.7 mmHg LV V1 max P.8 mmHg TR max willie: 250.4 cm/sec TR max P.1 mmHg Interpretation Summary The estimated ejection fraction is 65 %. Stage 1 diastolic dysfunction. Mild (1+) posteriorly directed mitral valve insufficiency. Mild (1+) tricuspid valve insufficiency. Right ventricular systolic pressure estimated to be 30 mmHg. Trivial aortic valve insufficiency. There is no comparison study available. Ordering Physician: Guzman Hernandez Referring Physician: NICOLA CHAU Performed By: Marianne Lane, BRAEDEN, RVT
== END ==
PROVIDERS: Family Provider Preventive Medicine Occupational Medicine; PCP Preventive Medicine Occupational Medicine; Referring Provider Internal Medicine Cardiovascular Disease; Visit Provider Internal Medicine Cardiovascular Disease
DX: R06.02 Shortness of breath (principal); R07.9 Chest pain, unspecified; I10 Essential (primary) hypertension
CPT/HCPCS: 93306

== ENCOUNTER 2018-07-25 06:54 | Day surgery (SDC) | payer OTHER, SELFPAY ==
[2018-07-19 08:44] VITALS: BMI 27.0
--- NOTE | 2018-07-19 10:32 | RAD_ITS ---
STUDY: X-RAY CHEST REASON FOR EXAM: Female, 57 years old. Preprocedure assessment TECHNIQUE: Frontal and lateral views of the chest were obtained. COMPARISON: May 22, 2018 FINDINGS: Lines and tubes: None. Lungs: Adequately aerated. No focal airspace opacities. Pleura: No demonstrated abnormality. Mediastinum/sherri: Unremarkable. Cardiovascular: Normal size cardiac silhouette. Central vascularity unremarkable. Thoracic aorta unremarkable. Soft tissues: Unremarkable. Bones: Mild degenerative changes in spine and shoulders. Upper abdomen: No demonstrated abnormality. RAD/Chest PA and Lateral IMPRESSION: No significant cardiopulmonary abnormalities. Electronically Signed: Claudette Arreola MD at 13:57 EST , Service support ,
[2018-07-22 09:02] VITALS: BMI 27.0
--- NOTE | 2018-07-25 09:08 | CL.D_ITS ---
Patient Name: DESMOND HART I Study Date: 07/25/2018 Performing: Guzman Hernandez MD Ht: 68.89 inches 175 cm : 1960 Wt: 182.98 lbs 83 kg Age: 57 Gender: female BSA: 1.99 PROCEDURE(S) PERFORMED KM90-[id number]/COR/LV CLINICAL PROFILE AND INDICATIONS Indications: New Onset Angina <= 2 months, Suspected CAD Heart Failure: None Stress/Imaging Stress Echocardiogram: Yes Result: NegativeStress Echocardiogram: Negative Angina Classification Anginal Classification w/in 2 Weeks: CCS II CAD Presentations: Symptom unlikely to be ischemic. Comorbidities/Risk Factors: Hypertension Dyslipidemia CONCLUSIONS Non obstructive coronary arteries Normal LV size, wall motion,and systolic function Perserved Left Ventricular systolic function with normal EDP LVEF: by LV gram 65 % RECOMMENDATIONS Plavix for at least 12 months Management as per referring Wood Heel Back [employer]iner Medical therapy vs. Percutaneous Intervention If pt has recurrent exertional anginal symptoms despite maximal medical therapy, could consider PCI o f distal LAD. Vessel is near the apex and is about a 2.0 mm vessel. Start lipitor 20mg po qhs and repeat FLP in 6 weeks. Manual sheath removal. DESCRIPTION OF PROCEDURE The patient arrived to the procedure lab. The risks and benefits of the procedure as well as a full d escription of our services here and current unavailability of surgical backup were fully explained to the patient and/or their significant other prior to the catheterization. The Timeout was completed, verifying the correct patient and procedure. The patient's procedural site was prepped and draped in the usual fashion. Local anesthetic was given subcutaneously to right groin region with Lidocaine 2%. Using a modified Seldinger technique, arterial access was obtained via the right femoral artery, a 4 Fr sheath was inserted Left Coronary Artery selective angiography was performed in multiple views us ing a 4 Fr. JL5 catheter. Right Coronary Artery selective angiography was then performed in multiple views using a 4 Fr. 3DRC catheter. Left Ventriculography was performed in MATA projection using a 4 Fr . Pigtail catheter. LV to AO pullback pressures were then recorded. CORONARY ANGIOGRAPHY DOMINANCE: Left Dominant LEFT HEART ASSESSMENT Left Ventricular Ejection Fraction: by LV Gram 65 % Normal LV wall motion Normal Left Ventricular systolic function LVEDP: 10 mmHg Normal Left Ventricular End Diastolic Pressure LEFT MAIN: Angiographically normal LEFT ANTERIOR DECENDING ARTERY: DISTAL LAD: 60 % Stenosis, at apex in 2.0 mm part of the vessel. CIRCUMFLEX ARTERY: Angiographically normal RIGHT CORONARY ARTERY: Angiographically normal COMPLICATIONS No Complications PROCEDURE MEDICATIONS Versed 1 mg IV Oxygen: 2 L/min via nasal cannula Plavix 75 mg PO 07/25/2018 07:22:01 SUMMARY OF HEMODYNAMIC DATA Time AIR REST ECG 07:30:26 AO 139/70 (99) SA 08:51:07 LV 123/-12, 6 08:57:23 LV 124/-15, 10 08:57:29 LVp 128/-18, 12 08:57:34 AOp 130/67 (95) 08:57:39 Signed By Guzman Hernandez MD On 07/25/2018 09:08:26 Guzman Hernandez MD
== END 2018-07-25 14:00 | disposition home or self-care (01) ==
LOC: CLSP 06:56
PROVIDERS: Family Provider Preventive Medicine Occupational Medicine; PCP Preventive Medicine Occupational Medicine; Referring Provider Internal Medicine Cardiovascular Disease; Visit Provider Internal Medicine Cardiovascular Disease
DX: R07.9 Chest pain, unspecified (principal); R06.02 Shortness of breath; I10 Essential (primary) hypertension; E78.5 Hyperlipidemia, unspecified; Z79.82 Long term (current) use of aspirin; Z82.49 Family history of ischemic heart disease and other diseases of the circulatory system
CPT/HCPCS: 71046; 93458; 99152; J7040; C1769; C1894; Q9967

== ENCOUNTER → 2018-11-16 | Outpatient (CLI) | payer OTHER, SELFPAY ==
[2018-07-22 09:02] VITALS: BMI 27.0
[2018-11-16 09:05] LABS: AST(SGOT) 24 U/L (15-37); Alanine Aminotransfer ALT/SGPT 22 U/L (13-56); Albumin, Serum 3.8 g/dL (3.2-5.0); Alkaline Phosphatase 98 U/L (45-117); Bilirubin, Direct 0.17 mg/dL (0.00-0.30); Cholesterol 150 mg/dL (200); Globulin 3.6 g/dL (2.2-4.2); High Density Lipoprotein 47 mg/dL; Protein, Total 7.4 g/dL (6.4-8.2); Triglycerides 111 mg/dL; Very Low Density Lipoprotein 22 mg/dL (5-40)
== END | disposition home or self-care (01) ==
LOC: LAB.FUTURE 07:43
PROVIDERS: Internal Medicine Cardiovascular Disease; Family Provider Preventive Medicine Occupational Medicine; PCP Preventive Medicine Occupational Medicine; Referring Provider Preventive Medicine Occupational Medicine; Visit Provider Preventive Medicine Occupational Medicine
DX: E78.5 Hyperlipidemia, unspecified (principal)
CPT/HCPCS: 36415; 80061; 80076

== ENCOUNTER → 2019-03-14 07:48 | Outpatient (CLI) | payer OTHER, SELFPAY ==
[2018-12-29 09:21] VITALS: BMI 25.3
== END ==
PROVIDERS: Family Provider Preventive Medicine Occupational Medicine; PCP Preventive Medicine Occupational Medicine; Referring Provider Nurse Practitioner Family; Visit Provider Nurse Practitioner Family
DX: Z12.11 Encounter for screening for malignant neoplasm of colon (principal)
CPT/HCPCS: 82274

== ENCOUNTER → 2019-03-30 07:19 | Outpatient (CLI) | payer OTHER, SELFPAY ==
[2018-12-29 09:21] VITALS: BMI 25.3
--- NOTE | 2019-03-30 07:20 | BI_ITS ---
MAMMOGRAPHY - BILATERAL SCREENING REASON FOR EXAM: Female, 58 years old. Routine annual screening examination. PERTINENT HISTORY: Grandmother with breast cancer. Prior left ultrasound-guided breast biopsy. TECHNIQUE: Digital bilateral breast bill (3D mammographic acquisition) in the CC and MLO projections. 2-D mediolateral oblique (MLO) and craniocaudad (CC) views of both breasts were obtained. CAD: Full Field Digital Mammography with Computer Added Detection was performed. COMPARISON: Comparison is made with prior study dated December 02, 2017. FINDINGS: Breast Composition: There are scattered areas of fibroglandular density. There are no dominant masses or suspicious calcifications. Benign-appearing bilateral axillary lymph nodes. No other significant abnormalities are identified. There has been no significant change since the prior study. BI/SCREEN MAMM (CAD) W/BILL BILAT IMPRESSION: Stable bilateral screening mammogram. Yearly follow-up mammogram recommended. (A) ASSESSMENT CATEGORY: BIRADS Category 2: Benign. A letter regarding these results will be sent to the patient by the facility within 30 days. Approximately 10% of breast cancers are not detected by mammography. A normal mammogram should not delay biopsy of a clinically suspicious abnormality. [id number] Electronically Signed: Juan Gu, at 9:09 EDT , Service support ,
== END ==
PROVIDERS: Family Provider Preventive Medicine Occupational Medicine; PCP Preventive Medicine Occupational Medicine; Referring Provider Nurse Practitioner Family; Visit Provider Nurse Practitioner Family
DX: Z12.31 Encounter for screening mammogram for malignant neoplasm of breast (principal)
CPT/HCPCS: 77063; 77067

== ENCOUNTER → 2019-05-15 17:29 | Outpatient (CLI) | payer OTHER, SELFPAY ==
[2018-12-29 09:21] VITALS: BMI 25.3
--- NOTE | 2019-05-15 17:37 | CT_ITS ---
STUDY: CTA BRAIN WITH AND WITHOUT CONTRAST REASON FOR EXAM: Female, 58 years old. Visual changes. Neck pain. Family history of intracranial aneurysm. RADIATION DOSAGE (If Supplied By Facility): CTDIvol = ( 27.29 ) mGy, DLP = ( 1242.89 ) mGycm TECHNIQUE: Transaxial CTA imaging of the brain was performed pre and post contrast administration. The examination was performed with intravenous administration of IV 100mL Isovue-370. Individualized dose optimization techniques were used for this CT. COMPARISON: None. FINDINGS: Normal soft tissue structures. Normal calvarium. Normal size ventricles and extra-axial spaces for the patient''s age. Normal white matter tracts of the cerebral hemispheres. Normal basal ganglia and thalami. Normal brainstem. Normal cerebellum. There is no intracranial hemorrhage. There are no findings of an acute ischemic infarction. Empty sella turcica. Normal visualized paranasal sinuses. CT/CTA Head W/WO Contrast IMPRESSION: Normal CTA of the brain. No intracranial aneurysm. Electronically Signed: Adarsh Botello MD at 0:29 EST , Service support ,
== END ==
PROVIDERS: Family Provider Preventive Medicine Occupational Medicine; PCP Preventive Medicine Occupational Medicine; Referring Provider Nurse Practitioner Family
DX: H33.20 Serous retinal detachment, unspecified eye (principal); Z82.49 Family history of ischemic heart disease and other diseases of the circulatory system; H53.9 Unspecified visual disturbance
CPT/HCPCS: 70496; Q9967

== ENCOUNTER → 2019-05-23 12:40 | Outpatient (CLI) | payer OTHER, SELFPAY ==
[2018-12-29 09:21] VITALS: BMI 25.3
--- NOTE | 2019-05-23 12:43 | CT_ITS ---
STUDY: CTA NECK WITH CONTRAST REASON FOR EXAM: Female, 58 years old. PT STATED GENERAL NECK PAIN, HX OF DETATCHED RETINA RADIATION DOSAGE (If Supplied By Facility): CTDIvol = ( 23.26 ) mGy, DLP = ( 573.59 ) mGycm TECHNIQUE: CT angiography with multi-detector data acquisition was performed from the aortic arch to the skull base following intravenous administration of 100ML ISOVUE 370. MIP images were reconstructed from the axial data set. Post-processing of the angiographic images was performed, with multiplanar reformation and 3D reconstruction. Individualized dose optimization techniques were used for this CT. COMPARISON: None. FINDINGS: AORTIC ARCH: Normal visualized aortic arch. Suggestion of bovine origins of the brachiocephalic, and left common carotid arteries together due to developmental variant, and unremarkable origin of left subclavian artery. RIGHT CAROTID ARTERIES: Normal right common carotid artery (CCA). Normal right common carotid bulb. Mild calcified plaque along origin of the right internal carotid (ICA) artery without a hemodynamically significant stenosis. Normal visualized cervical portion of the right internal carotid artery. Normal origin of the right external carotid artery (ECA). LEFT CAROTID ARTERIES: Normal left common carotid artery (CCA). Normal left common carotid bulb. Normal origin of the left internal carotid (ICA) artery without a hemodynamically significant stenosis. Normal visualized cervical portion of the left internal carotid artery. Normal origin of the left external carotid artery (ECA). VERTEBRAL ARTERIES: Normal bilateral vertebral arteries. Bilateral multifocal nodules of the thyroid glands measure up to 7.1 mm on the left, with overall more nodules on the left side, and correlation with sonogram is recommended as follow-up. CT/CTA Neck W/WO Contrast IMPRESSION: Mild calcified plaque along origin of the right ICA. No evidence of hemodynamically significant stenosis of the bilateral ICAs or bilateral vertebral arteries. No evidence of dissection of bilateral carotid or vertebral arteries. Bilateral multifocal nodules of the thyroid glands measure up to 7.1 mm on the left, with overall more nodules on the left side, and correlation with sonogram is recommended as follow-up. Electronically Signed: Pablo Sanders MD at 17:03 EST Tel [phone], Service support ,
== END ==
PROVIDERS: Family Provider Preventive Medicine Occupational Medicine; PCP Preventive Medicine Occupational Medicine; Referring Provider Nurse Practitioner Family; Visit Provider Nurse Practitioner Family
DX: H33.20 Serous retinal detachment, unspecified eye (principal); Z82.49 Family history of ischemic heart disease and other diseases of the circulatory system; H53.9 Unspecified visual disturbance
CPT/HCPCS: 70498; Q9967

== ENCOUNTER 2019-06-19 23:09 | Emergency (ER) | payer OTHER, SELFPAY ==
[2019-06-01 09:05] VITALS: BMI 26.9
[2019-06-19 23:10] VITALS: BP 156/112; PULSE 107; RESP 18; TEMP 36.5; O2SAT 98; BMI 26.6
--- NOTE | 2019-06-20 | CT_ITS ---
STUDY: CT ABDOMEN AND PELVIS WITHOUT CONTRAST REASON FOR EXAM: Female, 58 years old. RIGHT FLANK PAIN, DARK URINE, FEVER, CHILLS, NAUSEA, VOMITING RADIATION DOSAGE (If Supplied By Facility): CTDIvol = ( 11.46 ) mGy, DLP = ( 621.55 ) mGycm TECHNIQUE: Transaxial images were obtained from the dome of the diaphragm to the symphysis pubis without oral contrast, and without intravenous contrast. Sagittal and coronal images were reconstructed. Individualized dose optimization techniques were used for this CT. COMPARISON: None. FINDINGS: The visualized lung bases are unremarkable. The visualized portions of the heart are within normal limits. There is decreased attenuation of the liver consistent with steatosis. There are surgical clips in the gallbladder fossa consistent with a prior cholecystectomy. Normal spleen. Normal pancreas. Normal bilateral adrenal glands. Mild right hydronephrosis and hydroureter with perinephric and peritoneal stranding. The right ureter is distended to the level of the right UV junction. There is a 1.6 mm stone just past the UV junction. These findings are consistent with a recently passed stone. 1.6 mm stone within the lower pole of the left kidney. Minimal left perinephric stranding otherwise normal left kidney. Minimal hiatal hernia. Normal small intestine. Decompressed colon with diverticulosis of the sigmoid, no signs of diverticulitis. Surgical clips by the cecum noted with nonvisualized appendix suggestive of prior appendectomy. There is diffuse atherosclerotic calcification of the abdominal aorta, without a demonstrated aneurysm. Normal inferior vena cava. Normal retroperitoneum. Normal urinary bladder. Anteverted uterus. Normal abdominal wall. There are diffuse degenerative changes of the visualized lumbar spine. CT/Abdomen/Pelvis without Cont IMPRESSION: Mild right-sided hydronephrosis and hydroureter due to a 1.6 mm stone just past the UV junction. Left lower renal pole stone measuring 1.6 mm. No left hydronephrosis. Diverticulosis with no signs of diverticulitis. Diffuse fatty liver. Status post cholecystectomy with no biliary distention. Minimal hiatal hernia. Electronically Signed: Gali Dukes MD at 0:58 EST , Service support ,
--- NOTE | 2019-06-20 00:01 | ED.DCSUM_ITS ---
History of Present Illness Chief Complaint: Flank Pain Informant: Patient Onset: Days Context: Gradual Onset Timing: Intermittent, Waxes and wanes Narrative: Patient is a 58-year-old female with history of hypertension and hyperlipidemia presenting with right back and flank pain. Patient states that pain started 3 to 4 days ago. She states initially she just was not feeling quite right. She did not sleep well at night. She notes her urine has been a different color and odor. She is been drinking lots of water thinking maybe she has a urinary tract infection. Today she had worsening of her back pain and had a hard time getting comfortable. She states that the pain radiates around to her groin. She had an episode of vomiting at 7 PM. Today she has been nauseous so she has not been eating or drinking as much and therefore not urinating as much as well. Patient denies any other complaints at this time. She denies associated chest pain, shortness of breath, fever, chills or abdominal pain. She denies any pain with urination. Past Medical History - Allergies and Home Meds Allergies/Adverse Reactions: Allergies Sulfa (Sulfonamide Antibiotics) Allergy (Verified 06/19/19 23:14) Hives trimethoprim Allergy (Verified 06/19/19 23:14) Hives amlodipine Adverse Reaction (Severe, Verified 06/19/19 23:14) Hands and feet really swell up epinephrine Adverse Reaction (Intermediate, Verified 06/19/19 23:14) sensitive to TREMORS Opioids - Morphine Analogues Adverse Reaction (Intermediate, Verified 06/19/19 23:14) sensitive to TREMORS Primary Care Physician: Serjio Moreno DO [Primary Care Provider] - Past Medical History: - - Hypertension, hyperlipidemia Surgical History: - - Appendectomy, cholecystectomy, right ovary removed, C- section x2 Smoking Status: Never smoker - Family History Maternal Family History: Family History (Last Reviewed 05/26/19 @ 08:59 by Catina Pickett) Father Abdominal aneurysm CAD (coronary artery disease) Carotid artery disease Peripheral vascular disease S/P CABG (coronary artery bypass graft) Mother Hypertension H/O cerebral aneurysm repair CVA (cerebral vascular accident), Onset Age: 53 Family History: Reports: Heart Disease, Hypertension Paternal Family History: Family History (Last Reviewed 05/26/19 @ 08:59 by Catina Pickett) Father Abdominal aneurysm CAD (coronary artery disease) Carotid artery disease Peripheral vascular disease S/P CABG (coronary artery bypass graft) Mother Hypertension H/O cerebral aneurysm repair CVA (cerebral vascular accident), Onset Age: 53 Family History: Reports: Heart Disease, Hypertension Review of Systems General: Denies: Chills, Fever, Sweats Eyes: Denies: Visual changes - bilaterally, Diplopia ENT: Denies: Rhinorrhea, Sore throat Cardiovascular: Denies: Chest pain, Palpitations Respiratory: Denies: Dyspnea, Cough, Dyspnea on exertion Gastrointestinal: Reports: Nausea, Vomiting. Denies: Abdominal pain, Diarrhea, Melena, Hematochezia Genitourinary: Denies: Dysuria, Hematuria, Frequency Musculoskeletal: Reports: Back pain. Denies: Extremity Pain Skin: Denies: Rash, Wounds Neurological: Denies: Headache, Weakness, Numbness Physical Exam Vital Signs/Narrative: Vital Signs Temp Pulse Resp BP Pulse Ox 06/19/19 23:10 97.7 F L 107 H 18 156/112 H 98 Inital Vital Signs reviewed: Yes General: Well nourished, Well developed, No Acute Distress Head: Normocephalic, Atraumatic Eyes: Perrl, EOMI ENT: Moist mucous membranes, No rhinorrhea Neck: Supple, Nontender Cardiovascular: Regular rate, Regular rhythm, No murmurs Respiratory: No distress, CTA bilaterally, Chest nontender Abdomen: Soft, Nontender, Nondistended, Normal bowel sounds, No masses Back: Nontender, Normal Inspection. Negative for: CVA tenderness, Spinal tenderness Extremities: Nontender, No edema Skin: Normal color, No rash Neurological: Alert, Oriented x3, Cranial nerves II-XII grossly intact, Normal S trength, Normal Sensation Psychological: Normal affect, Normal Mood Diagnostic/Tx/Re-eval Clinical Impression(s) from Imaging Studies Abdomen/Pelvis CT 06/20/19 00:00 IMPRESSION: Mild right-sided hydronephrosis and hydroureter due to a 1.6 mm stone just past the UV junction. Left lower renal pole stone measuring 1.6 mm. No left hydronephrosis. Diverticulosis with no signs of diverticulitis. Diffuse fatty liver. Status post cholecystectomy with no biliary distention. Minimal hiatal hernia. Electronically Signed: Gali Dukes MD at 0:58 EST , Service support , Laboratory Data 06/20/19 06/20/19 06/20/19 00:07 00:07 01:26 WBC 13.3 H RBC 4.64 Hgb 14.0 Hct 41.6 MCV 89.7 MCH 30.2 MCHC 33.7 RDW Std Deviation 38.3 RDW Coeff of Edvin 11.8 Plt Count 304 MPV 9.5 Immature Gran % (Auto) 0.400 Neut % (Auto) 82.1 H Lymph % (Auto) 9.5 L Elmore % (Auto) 7.2 Eos % (Auto) 0.4 Baso % (Auto) 0.4 Absolute Neuts (auto) 11.0 H Absolute Lymphs (auto) 1.27 Nucleated RBC % 0 Sodium 141 Potassium 3.9 Chloride 108 H Carbon Dioxide 26.0 Anion Gap 7 BUN 13 Creatinine 0.85 Estim Creat Clear Calc 75.39 Est GFR (MDRD) Af Amer 88 Est GFR (MDRD) Non-Af 73 BUN/Creatinine Ratio 15.3 Glucose 121 H Calcium 9.7 Total Bilirubin 0.50 AST 23 ALT 30 Alkaline Phosphatase 106 Total Protein 8.3 H Albumin 4.4 Globulin 3.9 Albumin/Globulin Ratio 1.1 Urine Color Yellow Urine Clarity Sl. Cloudy Urine pH 5.0 Ur Specific [place] 1.020 Urine Protein 100 H Urine Glucose (UA) Normal Urine Ketones 5 H Urine Occult Blood 250 H Urine Nitrite Positive H Urine Bilirubin Negative Urine Urobilinogen Normal Ur Leukocyte Esterase 500 H Urine RBC 25-50 SEEN Urine WBC >100 SEEN Ur Squamous Epith Cells 0 SEEN Urine Bacteria 4+ Urine Mucus 0 SEEN - Medical Decision Making Patient is evaluated for a couple days of right-sided flank pain. She is initially treated with morphine, Zofran and Toradol. On reevaluation does have some improvement. Clinically I suspect kidney stone. CT of the abdomen pelvis without contrast shows evidence of a recently passed stone. On reevaluation patient is improved. Urinalysis obtained which does show nitrates. Urine culture will be sent and patient will be started on Keflex. She does have a mild leukocytosis however not sure if this is from the UTI versus reactive from the stone that she just passed. Either way patient is well-appearing I do not think she requires admission for IV antibiotics at this time. She is given IV fluids in the emergency room. She will be discharged home with a course of Keflex and Zofran. She is counseled on signs and symptoms require return emergency room. She verbalizes agreement understand this plan. She discharged home in stable condition. ED Disposition - Plan for ED Patient: Disposition: Home or Assisted Living Diagnosis: Ureterolithiasis, UTI (urinary tract infection) Instructions: KIDNEY STONE, Passed Prescriptions: Cephalexin [Keflex] 500 mg PO Q12 #14 cap Prescription Printed Ondansetron [Zofran Odt] 4 mg PO Q8H PRN PRN #10 tab PRN Reason: Nausea Prescription Printed Referrals: Serjio Moreno DO [Primary Care Provider] -
[2019-06-20 00:05] VITALS: BP 145/94; PULSE 94; RESP 16; O2SAT 95
[2019-06-20] MEDS: 0.9% Normal Saline 1,000 ML 999 ML IV (00:16)
[2019-06-20] MEDS: Ketorolac 30 MG/ML Syringe IV (00:17)
[2019-06-20] MEDS: Ondansetron 4 MG/2 ML Vial IV (00:17)
[2019-06-20 00:18] LABS: Absolute Lymphocyte Count 1.27 X10^3/uL (0.83-4.51); Basophil# 0.05 X10^3/uL; Basophil% 0.4 % (0-1); Eosinophil# 0.05 X10^3/uL; Eosinophils% 0.4 % (0-5); Hematocrit 41.6 % (37-47); Lymphocyte # 1.27 X10^3/ul (4.0); Lymphocyte % 9.5 % (19-41); Mean Corp Hgb Conc 33.7 g/dL (32-36); Mean Corpuscular Hgb 30.2 pg (27.0-32.0); Mean Corpuscular Volume 89.7 fL (81-99); Mean Platelet Vol. 9.5 fl (6.2-12.0); Monocyte# 0.96 X10^3/uL; Monocyte% 7.2 % (0-10); NRBC Flagged by Analyzer 0 % (0-5); Neutrophil # 10.95 X10^3/uL (2.7-7.7); Neutrophil % 82.1 % (47-70); Platelet Count 304 K/mm3 (150-450); RBC Distribution Width CV 11.8 % (11.6-14.6); RBC Distribution Width SD 38.3 fl (35.1-43.9); Red Blood Count 4.64 M/mm3 (4.2-5.4); White Blood Count 13.3 K/mm3 (4.4-11.0)
[2019-06-20 00:39] LABS: ALB/GLOB Ratio 1.1 RATIO (0.9-2.4); AST(SGOT) 23 U/L (15-37); Alanine Aminotransfer ALT/SGPT 30 U/L (13-56); Albumin, Serum 4.4 g/dL (3.2-5.0); Alkaline Phosphatase 106 U/L (45-117); Anion Gap 7 (5-15); BUN 13 mg/dL (7-18); BUN/Creat Ratio 15.3 RATIO (10-20); Calcium,Total 9.7 mg/dL (8.5-10.1); Chloride 108 mmol/L (98-107); Creatinine, Serum 0.85 mg/dL (0.55-1.02); EST Glomerular Filtration Rate 73 mL/min (>60); Est Glom Filt Rate - Afr Amer 88 mL/min (>60); Estimated Creatinine Clearance 75.39 ml/min; Globulin 3.9 g/dL (2.2-4.2); Glucose 121 mg/dL (74-106); Potassium 3.9 mmol/L (3.5-5.1); Protein, Total 8.3 g/dL (6.4-8.2); Sodium Level 141 mmol/L (136-145)
[2019-06-20 01:35] LABS: Mucous, Urine 0 SEEN /hpf (<or=2+); Squamous Epithelial Cells - UA 0 SEEN /hpf (5-10)
[2019-06-20 01:38] LABS: Color, Urine Yellow (Yellow); Glucose, Dipstick Normal (Normal); Ketone-Dipstick 5 mg/dl (Negative); Leukocyte Esterase-Dipstick 500 /ul (Negative); Nitrite-Dipstick Positive (Negative); Occult Blood-Urine 250 /ul (Negative); Protein-Dipstick 100 mg/dl (Negative); Urine Bilirubin Dipstick Negative (Negative); Urine Clarity Sl. Cloudy (Clear); Urine Urobilinogen Normal (Normal)
[2019-06-20 01:46] LABS: Bacteria 4+ /hpf (None Seen); Red Blood Cells-Urine 25-50 SEEN /hpf (0-5); White Blood Cells >100 SEEN /hpf (0-5)
[2019-06-20 02:21] VITALS: BP 126/75; PULSE 74; RESP 18; O2SAT 99
[2019-06-20 03:20] VITALS: RESP 16
[2019-06-20] MEDS: Cephalexin 250 MG Capsule 500 MG PO (03:21)
== END 2019-06-20 03:26 | disposition home or self-care (01) ==
PROVIDERS: Emergency Provider Emergency Medicine; PCP Preventive Medicine Occupational Medicine
DX: N13.2 Hydronephrosis with renal and ureteral calculous obstruction (principal); N39.0 Urinary tract infection, site not specified; K76.0 Fatty (change of) liver, not elsewhere classified; K57.30 Diverticulosis of large intestine without perforation or abscess without bleeding; K44.9 Diaphragmatic hernia without obstruction or gangrene; I10 Essential (primary) hypertension; E78.5 Hyperlipidemia, unspecified; Z90.49 Acquired absence of other specified parts of digestive tract; Z79.82 Long term (current) use of aspirin; Z79.899 Other long term (current) drug therapy
CPT/HCPCS: 74176; 80053; 81001; 85025; 87086; 87088; 87186; 96361; 96374; 96375; 99283; J7030; A4216; J2405

== ENCOUNTER → 2019-06-21 16:42 | Outpatient (CLI) | payer OTHER, SELFPAY ==
[2019-06-01 09:05] VITALS: BMI 26.9
[2019-06-19 23:10] VITALS: BMI 26.6
--- NOTE | 2019-06-21 16:44 | US_ITS ---
STUDY: THYROID ULTRASOUND REASON FOR EXAM: Female, 58 years old. Nodules. TECHNIQUE: Ultrasound evaluation of the thyroid was performed with real-time and static araujo-scale imaging. COMPARISON: CTA of the carotid arteries, May 23, 2019. FINDINGS: RIGHT LOBE: The right lobe of the thyroid gland measures 5.2 x 2.3 x 1 point cm. There is a heterogeneous echotexture. There is a 0.4 x 0.3 x 0.4 cm complex, predominantly cystic nodule in the lateral lower pole normal vascularity on Doppler imaging. LEFT LOBE: The left lobe of the thyroid gland measures 5.3 x 2.1 x 2.3 cm. There is a homogeneous echotexture. There are multiple small cystic foci within the left thyroid. The largest lower pole measures 1.0 x 0.8 x 0.8 cm. Normal vascularity on Doppler imaging. ISTHMUS: The isthmus measures 0.3 cm. There is a 1.4 x 0.7 x 0.3 cm right cervical lymph node adjacent to the thyroid. This has a benign appearance. US/Thyroid IMPRESSION: Bilateral small cystic lesions. These require no further follow-up. Electronically Signed: David Abraham DO at 23:50 EST Tel [phone], Service support ,
== END ==
PROVIDERS: Family Provider Preventive Medicine Occupational Medicine; PCP Preventive Medicine Occupational Medicine; Referring Provider Preventive Medicine Occupational Medicine; Visit Provider Preventive Medicine Occupational Medicine
DX: E04.2 Nontoxic multinodular goiter (principal)
CPT/HCPCS: 76536

== ENCOUNTER → 2019-12-07 10:36 | Outpatient (CLI) | payer OTHER, SELFPAY ==
[2019-12-07 09:57] VITALS: BMI 28.3
[2019-12-07 12:54] LABS: AST(SGOT) 36 U/L (15-37); Alanine Aminotransfer ALT/SGPT 34 U/L (13-56); Albumin, Serum 3.9 g/dL (3.2-5.0); Alkaline Phosphatase 84 U/L (45-117); Bilirubin, Direct 0.12 mg/dL (0.00-0.30); Cholesterol 143 mg/dL (200); Globulin 3.8 g/dL (2.2-4.2); High Density Lipoprotein 38 mg/dL; Protein, Total 7.7 g/dL (6.4-8.2); Triglycerides 88 mg/dL; Very Low Density Lipoprotein 18 mg/dL (5-40)
== END ==
PROVIDERS: PCP Preventive Medicine Occupational Medicine; Referring Provider Internal Medicine Cardiovascular Disease; Visit Provider Internal Medicine Cardiovascular Disease
DX: I10 Essential (primary) hypertension (principal); I25.10 Atherosclerotic heart disease of native coronary artery without angina pectoris; E78.00 Pure hypercholesterolemia, unspecified
CPT/HCPCS: 36415; 80061; 80076

== ENCOUNTER → 2019-12-27 13:09 | Outpatient (CLI) | payer OTHER, SELFPAY ==
[2019-12-07 09:57] VITALS: BMI 28.3
--- NOTE | 2019-12-27 13:10 | ECHOD_ITS ---
Reason For Study: VALVE REPL Procedure This was a 2D Doppler, Color Flow transthoracic echocardiogram. Exam performed in department. Left Ventricle Normal size and thickness. The estimated ejection fraction is 65 %. Stage 1 diastolic dysfunction. No regional wall motion abnormalities noted. Right Ventricle Normal size and thickness. Normal systolic function. Atria Normal left atrium. Normal right atrium. Normal atrial septum. Mitral Valve The mitral valve is structurally normal. No prolapse or stenosis seen. Trivial mitral valve insufficiency. Tricuspid Valve Normal tricuspid valve. Trivial tricuspid valve insufficiency. Right ventricular systolic pressure estimated to be 35 mmHg. Aortic Valve Normal aortic valve. Trisinus/trileaflet aortic valve. Pulmonic Valve Normal pulmonic valve. Trivial pulmonic valve insufficiency. Great Vessels Normal aortic root. Normal arch. Normal inferior vena cava. Inferior vena cava collapse with sniff. Pericardium/Pleural No pericardial effusion. MMode/2D Measurements & Calculations LVIDd: 3.9 cm IVSd: 1.0 cm Ao root diam: 3.5 cm LVIDs: 2.3 cm LVPWd: 0.80 cm RVDd: 3.3 cm FS: 40.1 % LAV(MOD-bp): 54.4 ml LA A4 area: 20.7 cm2 LA dimension(2D): 3.6 cm LAV(MOD-bp) Indexed: 26.8 ml/m2 LAV(MOD-sp2): 45.3 ml LAV(MOD-sp4): 61.3 ml RA A4 area: 12.2 cm2 Time Measurements MV dec time: 0.24 sec Doppler Measurements & Calculations MV E max willie: 85.8 cm/sec Lat Peak E' Willie: 9.0 cm/sec Med Peak E' Willie: 5.3 cm/sec MV A max willie: 126.8 cm/sec E/E' lat: 9.5 E/E' med: 16.1 MV E/A: 0.68 Ao V2 max: 143.6 cm/sec AI max willie: 407.9 cm/sec LV V1 max: 121.4 cm/sec Ao max P.3 mmHg AI max P.6 mmHg LV V1 max P.9 mmHg AI dec slope: 138.0 cm/sec2 AI P1/2t: 865.9 msec PA V2 max: 117.9 cm/sec PI end-d willie: 99.1 cm/sec TR max willie: 275.4 cm/sec TR max P.3 mmHg Interpretation Summary The estimated ejection fraction is 65 %. Stage 1 diastolic dysfunction. Trivial mitral valve insufficiency. Trivial tricuspid valve insufficiency. Right ventricular systolic pressure estimated to be 35 mmHg. Compared to echo report dated 07/21/2018, LV function has remained the same, and MR has improved from mild to trivial. RVSP has gone from 30 to 35 mm Hg. Ordering Physician: Guzman Hernandez Referring Physician: NICOLA HARMON Performed By: Ariana BRAEDEN, Marianne MICHAEL and Student
== END ==
PROVIDERS: PCP Preventive Medicine Occupational Medicine; Referring Provider Internal Medicine Cardiovascular Disease; Visit Provider Internal Medicine Cardiovascular Disease
DX: I25.10 Atherosclerotic heart disease of native coronary artery without angina pectoris (principal); I35.1 Nonrheumatic aortic (valve) insufficiency
CPT/HCPCS: 93306

== ENCOUNTER → 2020-05-07 15:19 | Outpatient (CLI) | payer OTHER, SELFPAY ==
[2019-12-07 09:57] VITALS: BMI 28.3
--- NOTE | 2020-05-07 15:21 | BI_ITS ---
MAMMOGRAPHY - BILATERAL SCREENING REASON FOR EXAM: Female, 59 years old. Routine annual screening examination. PERTINENT HISTORY: Grandmother with breast cancer. TECHNIQUE: Digital bilateral breast bill (3D mammographic acquisition) in the CC and MLO projections. 2-D mediolateral oblique (MLO) and craniocaudad (CC) views of both breasts were obtained. CAD: Full Field Digital Mammography with Computer Added Detection was performed. COMPARISON: Comparison is made with prior study dated 03/30/2019 and 12/02/2017. FINDINGS: Breast Composition: There are scattered areas of fibroglandular density. Questionable focal area of faint nodular density in the upper deep slightly lateral aspect of the left breast. The patient will be recalled for additional views including spot compression views. Stable small benign appearing bilateral axillary lymph nodes. No other significant abnormalities are identified. BI/SCREEN MAMM (CAD) W/BILL BILAT IMPRESSION: Possible focal area of the nodular density in the upper deep slightly lateral aspect of the left breast as described. The patient will be recalled for additional views including 90 degree lateral and compression spot views. ASSESSMENT CATEGORY: BIRADS Category 0: Incomplete. Need additional imaging evaluation. A letter regarding these results will be sent to the patient by the facility within 30 days. Approximately 10% of breast cancers are not detected by mammography. A normal mammogram should not delay biopsy of a clinically suspicious abnormality. [id number] Electronically Signed: Juan Gu, at 8:34 EST , Service support ,
--- NOTE | 2020-05-07 15:24 | BD_ITS ---
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 COMPARISON: None. FINDINGS: Lumbar Spine (L1-L4): g/cm2 (1.294) / T-score (0.8) / Z-score (1.9) Findings are suggestive of normal bone density with a low fracture risk. Left Femur Total: g/cm2 (1.061) / T-score (0.4) / Z-score (1.3) Left Femoral Neck: g/cm2 (0.935) / T-score (-0.7) / Z-score (0.5) Right Femur Total: g/cm2 (1.035) / T-score (0.2) / Z-score (1.1) Right Femoral Neck: g/cm2 (0.917) / T-score (-0.9) / Z-score (0.3) BD/Dexa Bone Density Study IMPRESSION: The patient is considered normal as outlined below according to World Edwin Organization (WHO) criteria with a low fracture risk. Reference Information: The T-score is the number of standard deviations above or below the standard which is normal for young adults at their peak bone mineral density. The World Health Organization (WHO) interprets the T-scores as follows: Above -1 Normal bone density Between -1 and -2.5 Osteopenia Equal to / or below -2.5 Osteoporosis As a practical clinical guideline, osteopenia may be graded as follows: Mild -1 through -1.5 Moderate -1.6 through -2.0 Severe -2.1 through -2.4 The Z-score is the number of standard deviations above or below age-matched controls. A Z-score of less than -1.5 would be considered abnormal. References: 1. NIH Osteoporosis and Related Bone Diseases www osteo.org 2. International Society for Clinical Densitometry www iscd.org 3. National Osteoporosis Foundation www nof.org Electronically Signed: Juan Gu, at 14:10 EST , Service support ,
== END ==
PROVIDERS: PCP Preventive Medicine Occupational Medicine; Referring Provider Preventive Medicine Occupational Medicine; Visit Provider Preventive Medicine Occupational Medicine
DX: Z12.31 Encounter for screening mammogram for malignant neoplasm of breast (principal); Z78.0 Asymptomatic menopausal state
CPT/HCPCS: 77063; 77067; 77080

== ENCOUNTER → 2020-05-10 13:35 | Outpatient (CLI) | payer OTHER, SELFPAY ==
[2019-12-07 09:57] VITALS: BMI 28.3
--- NOTE | 2020-05-10 13:37 | BI_ITS ---
MAMMOGRAPHY - UNILATERAL DIAGNOSTIC: LEFT BREAST REASON FOR EXAM: Female, 59 years old. Abnormal screening mammogram. PERTINENT HISTORY: Grandmother with breast cancer. TECHNIQUE: Compression views of the left breast were obtained in the mediolateral oblique and craniocaudad projections. CAD: Full Field Digital Mammography with Computer Added Detection was performed. COMPARISON: Comparison is made with prior mammogram dated 05/07/2020. FINDINGS: Breast Composition: There are scattered areas of fibroglandular density. No definite nodule is seen on this examination. Correlation with ultrasound is recommended. No other significant abnormalities are identified. BI/DIAG MAMM W/CAD, UNILAT IMPRESSION: No definite nodule is seen. Correlation with ultrasound is recommended. ASSESSMENT CATEGORY: BIRADS Category 0: Incomplete. Need additional imaging evaluation. A letter regarding these results will be sent to the patient by the facility within 30 days. Approximately 10% of breast cancers are not detected by mammography. A normal mammogram should not delay biopsy of a clinically suspicious abnormality. Electronically Signed: Juan Gu, at 8:30 EST , Service support ,
--- NOTE | 2020-05-10 13:38 | US_ITS ---
STUDY: ULTRASOUND BREAST - LEFT REASON FOR EXAM: Female, 59 years old. Abnormal screening mammogram. TECHNIQUE: Axial and longitudinal images of the LEFT breast were performed with a high resolution ultrasound transducer. # OF IMAGES: 52 COMPARISON: Comparison is made with prior mammogram done earlier in the day as well as prior mammogram dated 05/07/2020. FINDINGS: LEFT Breast: The lateral aspect of the left breast was examined. No sonographic abnormality is seen. US/Breast Limited Unilateral IMPRESSION: No sonographic abnormality is seen. Routine annual mammographic follow-up is recommended. ASSESSMENT CATEGORY: BIRADS Category 2: Benign. A letter regarding these results will be sent to the patient by the facility within 30 days. Electronically Signed: Juan Gu, at 8:31 EST , Service support ,
== END ==
PROVIDERS: PCP Preventive Medicine Occupational Medicine; Referring Provider Preventive Medicine Occupational Medicine; Visit Provider Preventive Medicine Occupational Medicine
DX: R92.8 Other abnormal and inconclusive findings on diagnostic imaging of breast (principal)
CPT/HCPCS: 76641; 76642; 77065

== ENCOUNTER → 2020-07-15 07:01 | Outpatient (CLI) | payer OTHER, SELFPAY ==
[2020-06-27 10:23] VITALS: BMI 29.6
--- NOTE | 2020-07-15 12:27 | STRESSREP_ITS ---
Stress Test Report Exercise myocardial perfusion stress test. 59-year-old lady with a history of chest pain and coronary artery risk factors. Stress protocol: Resting EKG demonstrates normal sinus rhythm with a rate of 67 bpm normal intervals are noted resting blood pressure is 138/90 mmHg. The patient exercised according to regular Oscar protocol for a total duration of 7 minutes. The maximum heart rate attained was 160 bpm which was 99% of max impacted heart rate the maximum workload was 8.5 metabolic equivalents. At rest there were no ST or T wave changes noted to suggest ischemia at peak exercise upsloping ST changes were noted with no meet the criteria for ischemia. The test was terminated due to dyspnea. The peak blood pressure was 190/90 mmHg. This was a good blood pressure response to exercise. Myocardial perfusion protocol. 14.1 mCi of technetium 99m sestamibi was injected at rest. The patient exercised according to regular Oscar protocol for 7 minutes and at peak exercise 43.7 mCi of technetium 99m sestamibi was injected stress images were obtained stress and rest images were reconstructed and compared in the short axis v ertical long horizontal long axis. Gated images were also obtained Perfusion SPECT analysis: Review of the stress images demonstrate normal uptake of tracer noted in all areas of the myocardium the resting images similarly demonstrate normal uptake of tracer noted in all areas of the myocardium. No areas of reversibility are noted suggest ischemia no previous infarct is noted. Gated SPECT analysis: The gated ejection fraction is 72%. Conclusion: Normal exercise myocardial perfusion stress test at a moderate workload. No clinical angina noted.
== END ==
PROVIDERS: PCP Preventive Medicine Occupational Medicine; Referring Provider Nurse Practitioner Family; Visit Provider Nurse Practitioner Family
DX: R07.9 Chest pain, unspecified (principal); R06.02 Shortness of breath; I25.10 Atherosclerotic heart disease of native coronary artery without angina pectoris
CPT/HCPCS: 78452; 93017; A9500; A4216

== ENCOUNTER → 2020-08-30 07:27 | Outpatient (CLI) | payer OTHER, SELFPAY ==
[2020-07-31 11:40] VITALS: BMI 28.9
[2020-08-30 08:22] LABS: BNP,B-Type NATRIURETIC PEPTIDE 12.8 pg/mL (0-100)
[2020-08-30 08:23] LABS: Anion Gap 4 (5-15); BUN 17 mg/dL (7-18); BUN/Creat Ratio 19.6 RATIO (10-20); Calcium,Total 9.5 mg/dL (8.5-10.1); Chloride 104 mmol/L (98-107); Creatinine, Serum 0.87 mg/dL (0.55-1.02); EST Glomerular Filtration Rate 71 mL/min (>60); Est Glom Filt Rate - Afr Amer 86 mL/min (>60); Glucose 118 mg/dL (74-106); Potassium 3.9 mmol/L (3.5-5.1); Sodium Level 138 mmol/L (136-145)
== END ==
PROVIDERS: PCP Preventive Medicine Occupational Medicine; Referring Provider Nurse Practitioner Family; Visit Provider Nurse Practitioner Family
DX: I25.10 Atherosclerotic heart disease of native coronary artery without angina pectoris (principal); R06.00 Dyspnea, unspecified; Z79.899 Other long term (current) drug therapy
CPT/HCPCS: 36415; 80048; 83880

== ENCOUNTER → 2020-09-06 08:13 | Outpatient (CLI) | payer OTHER, SELFPAY ==
[2020-07-31 11:40] VITALS: BMI 28.9
--- NOTE | 2020-09-06 12:58 | PFT ---
INTRODUCTION: The patient is a 59-year-old female that presents for pulmonary function studies secondary to a diagnosis of shortness of breath. Respiratory therapy reports good patient effort. Bronchodilators were used during testing. INTERPRETATION: Forced expiration spirometry demonstrates no evidence of a large airways obstructive ventilatory defect. There was no significant response to aerosolized bronchodilators. Spirograms are of good quality and plateau normally. Body plethysmography was performed and reveals a decreased TLC to 4.76 L, 78% of predicted, indicative of a mild restrictive ventilatory impairment. Diffusing capacity by single breath CO is reduced at 74% of predicted. IMPRESSION: Isolated mild restrictive ventilatory impairment with symmetric reduction in diffusing capacity.
== END ==
PROVIDERS: PCP Preventive Medicine Occupational Medicine; Referring Provider Nurse Practitioner Family; Visit Provider Nurse Practitioner Family
DX: R06.02 Shortness of breath (principal)
CPT/HCPCS: 94060; 94726; 94729

== ENCOUNTER → 2020-09-18 06:54 | Outpatient (CLI) | payer OTHER, SELFPAY ==
[2020-07-31 11:40] VITALS: BMI 28.9
--- NOTE | 2020-09-18 06:55 | CT_ITS ---
STUDY: CT CHEST WITH CONTRAST REASON FOR EXAM: Female, 59 years old. Shortness of breath RADIATION DOSAGE (If Supplied By Facility): CTDIvol = ( 13.55 ) mGy, DLP = ( 587.40 ) mGycm TECHNIQUE: Transaxial imaging was performed following intravenous administration of IV 100mL Isovue-300. Multiplanar coronal and sagittal images were reformatted. Individualized dose optimization techniques were used for this CT. COMPARISON: None. FINDINGS: The lungs are normal. There is no demonstrated pleural abnormality. Normal heart and pericardium. Normal mediastinum. Normal hilar regions. Normal enhanced pulmonary arteries. Normal aorta arch and descending thoracic aorta. There are multi-level degenerative changes of the thoracic spine. There is diffuse fatty infiltration of the liver. Small hiatal hernia. CT/Chest WITH Contrast IMPRESSION: Diffuse fatty infiltration of the liver. The lungs are clear. Electronically Signed: Juan Gu MD at 9:49 EDT , Service support ,
== END ==
PROVIDERS: PCP Preventive Medicine Occupational Medicine; Referring Provider Nurse Practitioner Family; Visit Provider Nurse Practitioner Family
DX: R07.89 Other chest pain (principal); R06.02 Shortness of breath
CPT/HCPCS: 71260; Q9967

== ENCOUNTER → 2020-10-23 12:03 | Outpatient (CLI) | payer OTHER, SELFPAY ==
[2020-07-31 11:40] VITALS: BMI 28.9
--- NOTE | 2020-10-23 12:04 | RAD_ITS ---
STUDY: X-RAY CHEST REASON FOR EXAM: Female, 59 years old. SOB, chest pain -- pre-operative TECHNIQUE: PA and lateral views of the chest. COMPARISON: Comparison is made with prior study dated 07/19/2018. FINDINGS: The lungs are clear and expanded. Scattered calcified granulomas. There is no demonstrated pleural abnormality. Normal size heart. Normal mediastinum and sherri. Normal visualized pulmonary arteries. Normal visualized aortic arch and descending thoracic aorta. There are mild degenerative changes of the visualized thoracic spine. Normal visualized ribs, clavicles, and shoulders. There is no demonstrated abnormality of the visualized soft tissue structures of the upper abdomen. RAD/Chest PA and Lateral IMPRESSION: No acute abnormality is seen. Electronically Signed: Juan Gu MD at 15:45 EDT , Service support ,
--- NOTE | 2020-10-23 12:12 | EKG12_ITS ---
Test Reason : ROUTINE Blood Pressure : / mmHG Vent. Rate : 072 BPM Atrial Rate : 072 BPM P-R Int : 164 ms QRS Dur : 088 ms QT Int : 414 ms P-R-T Axes : 054 055 070 degrees QTc Int : 453 ms Normal sinus rhythm Normal ECG Confirmed by JASON MO, JYOTHI ([id number]), website/blog editor BENSON NAVARRO ([id number]) on 10/24/2020 11:16:09 AM Referred By: Km Reyes Confirmed By:JYOTHI GOMEZ MD
== END ==
PROVIDERS: PCP Preventive Medicine Occupational Medicine; Referring Provider Nurse Practitioner Family; Visit Provider Nurse Practitioner Family
DX: Z01.818 Encounter for other preprocedural examination (principal); I25.10 Atherosclerotic heart disease of native coronary artery without angina pectoris; R06.02 Shortness of breath; R07.9 Chest pain, unspecified
CPT/HCPCS: 71046; 93005

== ENCOUNTER → 2020-11-01 07:39 | Outpatient (CLI) | payer OTHER, SELFPAY ==
[2020-07-31 11:40] VITALS: BMI 28.9
[2020-11-01 08:24] LABS: Absolute Lymphocyte Count 1.96 X10^3/uL (0.83-4.51); Absolute Neutrophil Count 3.5 X10^3/uL (2.0-7.7); Basophil# 0.07 X10^3/uL; Basophil% 1.1 % (0-1); Eosinophil# 0.24 X10^3/uL; Eosinophils% 3.7 % (0-5); Hematocrit 39.5 % (37-47); Hemoglobin 13.3 g/dL (12.0-15.0); Lymphocyte # 1.96 X10^3/ul (0.83-4.51); Mean Corp Hgb Conc 33.7 g/dL (32-36); Mean Corpuscular Volume 92.1 fL (81-99); Mean Platelet Vol. 9.5 fl (6.2-12.0); Monocyte# 0.72 X10^3/uL; NRBC Flagged by Analyzer 0 % (0-5); Neutrophil # 3.51 X10^3/uL (2.7-7.7); Neutrophil % 53.6 % (47-70); Platelet Count 350 K/mm3 (150-450); RBC Distribution Width CV 12.5 % (11.6-14.6); RBC Distribution Width SD 41.4 fl (35.1-43.9); Red Blood Count 4.29 M/mm3 (4.2-5.4); White Blood Count 6.5 K/mm3 (4.4-11.0)
[2020-11-01 08:36] LABS: Prothrombin Time (Protime)PT. 12.5 SECONDS (11.7-14.9)
[2020-11-01 08:37] LABS: Partial Thromboplast Time 32.5 Seconds (24.1-36.2)
[2020-11-01 09:06] LABS: AST(SGOT) 34 U/L (15-37); Alanine Aminotransfer ALT/SGPT 40 U/L (13-56); Alkaline Phosphatase 83 U/L (45-117); Anion Gap 9 (5-15); BUN 14 mg/dL (7-18); BUN/Creat Ratio 17.3 RATIO (10-20); Chloride 107 mmol/L (98-107); Cholesterol 164 mg/dL (200); Creatinine, Serum 0.81 mg/dL (0.55-1.02); EST Glomerular Filtration Rate 77 mL/min (>60); Est Glom Filt Rate - Afr Amer 93 mL/min (>60); Globulin 3.6 g/dL (2.2-4.2); Glucose 111 mg/dL (74-106); High Density Lipoprotein 41 mg/dL; Potassium 3.8 mmol/L (3.5-5.1); Protein, Total 7.6 g/dL (6.4-8.2); Sodium Level 141 mmol/L (136-145); Triglycerides 95 mg/dL; Very Low Density Lipoprotein 19 mg/dL (5-40)
== END ==
PROVIDERS: PCP Preventive Medicine Occupational Medicine; Referring Provider Nurse Practitioner Family; Visit Provider Nurse Practitioner Family
DX: Z01.818 Encounter for other preprocedural examination (principal); I25.10 Atherosclerotic heart disease of native coronary artery without angina pectoris; R06.02 Shortness of breath; R07.9 Chest pain, unspecified; E78.5 Hyperlipidemia, unspecified
CPT/HCPCS: 36415; 80048; 80061; 80076; 85025; 85610; 85730

== ENCOUNTER 2020-12-27 07:37 | Day surgery (SDC) | payer OTHER, SELFPAY ==
[2020-12-06 10:04] VITALS: BMI 29.1
--- NOTE | 2020-12-16 08:56 | HP.PCM_ITS ---
History and Physical Date of Admission: 12/27/20 [facility] [id number] [place], [place] [phone] OFFICE VISITDate of Service: 12/06/20 MR#:[id number]:[id number]: DESMOND HART IRep #:[id number] Provider:Dr. Sujit Hager, MDAge/Sex: 59/F Locat ion:BMS.WHGStatus:Signed HPI HPI History of Present Illness Surgical H&P: Yes Details: This is a 59-year-old white female who presents today for outpatient cardiovascular follow-up with a history of underlying CAD, hyperlipidemia, hypertension, abnormal PFTs demonstrating a mild restrictive ventilatory defect, with ongoing concerns of exertional chest discomfort and dyspnea. She notes that when she comes into the hospital and walks up the steps her chest discomfort becomes more prominent in the precordial area feeling heavy and she becomes more short of breath and dyspneic. She will stop and rest and feel better. She denies associated nausea, emesis, or diaphoresis. There has been no near syncope or syncope. She has had no orthopnea, PND, or peripheral pitting edema. She has undergone noninvasive and invasive evaluation both from a cardiac and a pulmonary standpoint. She does have evidence of CAD but did not require PCI. She also has a mild restrictive ventilatory defect on her PFTs. She had an ECG today. She was noted to be in sinus rhythm with no acute ECG changes. Her previous cardiovascular studies available for review are noted below. Intake Vital Signs 12/06/20 10:04 Height 5 ft 9 in Weight: 197 lb 7 oz BMI 29.1 BP 126/82 H Blood Pressure Location Lt brachial Position Sitting Respiration 16 Pulse 68 Pulse Source Auscultation Intake Visit Reasons: Per [facility] prior to cath [employer] Required: No Accompanied by: Self Allergies Sulfa (Sulfonamide Antibiotics) Allergy (Verified 12/06/20 10:10) Hives trimethoprim Allergy (Verified 12/06/20 10:10) Hives amlodipine Adverse Reaction (Severe, Verified 12/06/20 10:10) Hands and feet really swell up epinephrine Adverse Reaction (Intermediate, Verified 12/06/20 10:10) sensitive to TREMORS Opioids - Morphine Analogues Adverse Reaction (Intermediate, Verified 12/06/20 10:10) sensitive to TREMORS Medications aspirin 81 mg PO DAILY@0800 #30 tab.chew 05/23/18 [Rx Confirmed 12/06/20] atenolol 25 mg tablet 12.5 mg PO QHS #45 tab 06/27/20 [Rx Confirmed 12/06/20] gemfibrozil 600 mg tablet 600 mg PO DAILY #90 tab 06/27/20 [Rx Confirmed 12/06/20] omega-3 fatty acids 1,000 mg capsule 1,000 mg PO BID 06/27/20 [History Confirmed 12/06/20] valsartan 160 mg-hydrochlorothiazide 12.5 mg tablet 1 tab PO DAILY #30 tab 07/31/20 [Rx Confirmed 12/06/20] clopidogrel 75 mg tablet 75 mg PO DAILY #30 tab 12/06/20 [Rx Confirmed 12/06/20] vitamin D3 250 mcg (10,000 unit)-vitamin K2 45 mcg capsule 1 cap PO DAILY cap 12/06/20 [History Confirmed 12/06/20] PFS Medical History Atherosclerotic heart disease of [place] coronary artery without angina pectoris Chest pain Essential (primary) hypertension Family history of ischemic heart disease before age 50 History of electrocution Shortness of breath Surgical History History of appendectomy (1981) History of history of cervical/uterine ablation (2013) History of cholecystectomy (1992) History of detached retina repair (07/2018) History of left heart catheterization (07/25/18) History of right salpingo-oophorectomy (1981) History of tonsillectomy S/P lens implant (~07/2019) Family History Father , age 66 of CHF related to sepsis and biliary blockage Abdominal aneurysm CAD (coronary artery disease) Carotid artery disease Peripheral vascular disease S/P CABG (coronary artery bypass graft) Mother Hypertension H/O cerebral aneurysm repair CVA (cerebral vascular accident), Onset Age: 53 after cerebral aneurysm repair Social History Smoking Status: Never smoker alcohol intake: never substance use type: does not use caffeine: Yes Type: carbonated beverages Number of servings: 1 ROS Const Const: Positive for fatigue; Negative for weakness, headache(s), frequent falls, excessive sweating, weight gain or weight loss Eyes Eyes: Negative for transient loss of vision, blurry vision, change in vision or double vision ENT ENT: Negative for headache(s), dizziness or balance problems Cardio Chest Pain: Yes Character: other (heaviness) Onset: exercise Location: mid sternal Duration: minutes (15-20 minutes) Relieving: rest Palpitations: Yes (occasional) feels like its: fast and pounding Edema: None Muscle aches with walking: None Resp Respiratory: Positive for SOB with activity (going upstairs and ambulating long distances) and Cough (dry associated with heaviness); Negative for SOB at rest GI GI: Negative vomiting or vomiting blood/hematemesis : Negative for hematuria Musc Musc: Negative for muscle aches/ myalgia, muscle weakness, joint pain or balance problems Skin Skin: Negative non-healing lesions or rash Neuro Neuro: Negative for dizziness, lightheadedness, near syncope, syncope, orthostatic symptoms, frequent falls, headache(s), weakness, confusion, memory loss, restless legs, blurry vision, double vision, vertigo, seizures, lack of coordination or other [place] Hematologic/Lymphatic: Negative for easy bleeding Endo Endo: Positive for fatigue; Negative for excessive sweating Psych Psych: Negative for anxiety or depression Allergy Allergy/Immunology: Negative for hives and Negative for rash Cardiology Exam Const Appearance: cooperative, healthy appearing, comfortable, no acute distress, well developed and well groomed Nutritional Appearance: overweight Orientation: alert, awake and oriented x3 Head Head: normal to inspection, normocephalic and atraumatic Ears: hearing grossly normal bilaterally Nose: external nose normal Face and Sinus: face symmetric Eyes Eyelids: eyelids normal Conjunctivae: conjunctivae normal Pupils: PERRL EOM: EOM intact bilaterally Neck Neck: normal visual inspection and full ROM Carotids: normal carotid upstroke Chest Chest inspection: normal inspection of the chest, symmetric chest movement and normal respiratory effort Auscultation: Bilateral: Clear to Auscultation Cardio Palpation: normal PMI Rate: regular rate Rhythm: regular rhythm Heart sounds: S1 normal and S2 normal GI GI: normal to inspection, soft and bowel sounds present Neuro General: patient alert, patient awake, patient oriented x3 and moves all extremities Skin Skin: no rashes or lesions noted Extremities Pulses: Normal: Right Radial Pulse and Left Radial Pulse Lower Extremity Edema: None: Bilateral Psych Psychological: normal affect Assessment and Plan Assessment and Plan (1) Atherosclerotic heart disease of [place] coronary artery without angina pectoris: Status: Chronic Qualifiers: [place] vs. transplanted heart: [place] heart Qualified Code(s): I25.10 - Atherosclerotic heart disease of [place] coronary artery without angina pectoris Comment: Minimal disease in distal LAD, other coronaries normal per C done 07/25/18 per [facility] @ [facility] Orders: Orders: 12 Lead EKG performed by BMS Today Left & Right Heart Cath Today Basic Metabolic Profile (BMP) Today Partial Thromboplast Time Today Prothrombin Time w/INR Today CBC W/Diff, Automated Today Plan - Dr. Sujit Hager MD: At the present time there is concern about her symptoms being compatible with a stable exertional angina pectoris. Based upon her medical management and her noninvasive studies and her ongoing symptoms with no other definitive etiology to explain them it was felt reasonable that she be reassessed in the cardiac catheterization laboratory. The procedure and risk were discussed with her. She was agreeable to this approach. If these findings are unremarkable then she may need to consider formal pulmonary evaluation for additional evaluation care. (2) Chest pain: Status: Chronic Qualifiers: Chest pain type: precordial pain Qualified Code(s): R07.2 - Precordial pain Orders: Orders: Left & Right Heart Cath Today Basic Metabolic Profile (BMP) Today Partial Thromboplast Time Today Prothrombin Time w/INR Today CBC W/Diff, Automated Today Plan - Dr. Sujit Hager MD: Then she has symptoms concerning for stable exertional angina pectoris. She will continue medical management. She will proceed with cardiovascular evaluation as noted. (3) Shortness of breath: Status: Chronic Orders: Orders: 12 Lead EKG performed by BMS Today Left & Right Heart Cath Today Basic Metabolic Profile (BMP) Today Partial Thromboplast Time Today Prothrombin Time w/INR Today CBC W/Diff, Automated Today Plan - Dr. Sujit Hager MD: She does have shortness of breath and dyspnea. Again there is concern whether this is cardiac or pulmonary. Her most recent noninvasive studies were reviewed. She did appear to have at least mild elevation of her right-sided pressures on her transthoracic echocardiogram. Thus it may be reasonable to consider with cardiac catheterization and a right heart catheterization as well. (4) Hyperlipidemia: Status: Chronic Qualifiers: Hyperlipidemia type: unspecified Qualified Code(s): E78.5 - Hyperlipidemia, unspecified Orders: Orders: Left & Right Heart Cath Today Basic Metabolic Profile (BMP) Today Partial Thromboplast Time Today Prothrombin Time w/INR Today CBC W/Diff, Automated Today Plan - Dr. Sujit Hager MD: Her most recent lipid labs from 11-01-2020 were reviewed. Her total cholesterol was 164 with an LDL of 104 and an HDL of 41. Her triglycerides were 95. She will continue her medical therapy. Of note she is not on a statin. She does not recall the reason why it was discontinued in the past. (5) Essential (primary) hypertension: Status: Chronic Orders: Orders: 12 Lead EKG performed by BMS Today Left & Right Heart Cath Today Basic Metabolic Profile (BMP) Today Partial Thromboplast Time Today Prothrombin Time w/INR Today CBC W/Diff, Automated Today Plan - Dr. Sujit Hager MD: Her blood pressure appears to be a reasonably good control today. She will continue medical therapy. Plan Details Other Medications: New: clopidogrel (Plavix) 75 mg PO DAILY 30 tabs 1RF Other Orders: Orders: 12 Lead EKG performed by BMS Today R07.9 Additional Comments: The above was discussed with her and she was agreeable to this approach. Thank you for allowing me to participate in the care of your patient. Please don't hesitate to call if any issues arise. This note was generated using a voice recognition system and there may be incorrect words, spelling or punctuation that were not noted when reviewing the office note prior to saving. Follow Up: 3 Months (PFM) COVID (Procedure Consent) Procedure Criteria Procedure Criteria: Yes Elective The surgeon/proceduralist and patient have discussed in detail the risk of exposure to and/or potential harm posed by the COVID-19 virus with having a surgery/procedure at this time versus the risk of delaying the surgery/procedure. It is not possible to know either the risk of delaying the surgery or procedure or chance of getting an infection with perfect accuracy, but a joint decision was made between the patient and the surgeon/proceduralist to proceed at this time with the scheduled surgery/procedure as indicated on the consent form. Coding Level of Care Code Off vis,est,level 5 Diagnoses Atherosclerotic heart disease of [place] coronary artery without angina pectoris I25.10 [place] vs. transplanted heart: [place] heart Chest pain R07.2 Chest pain type: precordial pain Shortness of breath R06.02 Hyperlipidemia E78.5 Hyperlipidemia type: unspecified Essential (primary) hypertension I10 Coding Level of Care Code Off vis,est,level 5 Diagnoses Atherosclerotic heart disease of [place] coronary artery without angina pectoris I25.10 [place] vs. transplanted heart: [place] heart Chest pain R07.2 Chest pain type: precordial pain Shortness of breath R06.02 Hyperlipidemia E78.5 Hyperlipidemia type: unspecified Essential (primary) hypertension I10 Supplemental Info Supplemental Information Echocardiogram from 12/27/2019: Interpretation Summary The estimated ejection fraction is 65 %. Stage 1 diastolic dysfunction. Trivial mitral valve insufficiency. Trivial tricuspid valve insufficiency. Right ventricular systolic pressure estimated to be 35 mmHg. Compared to echo report dated 07/21/2018, LV function has remained the same, and MR has improved from mild to trivial. RVSP has gone from 30 to 35 mm Hg. Stress echocardiogram from 05/23/2018: Interpretation Summary The study was technically difficult. Contrast injection was performed. The estimated ejection fraction is 65 %. Normal, adequate, treadmill echocardiogram. Negative for ischemia by EKG and echocardiographic criteria. Patient had baseline atypical 2 out of 10 chest pain prior to test initiation, which remained the case during test. Test terminated due to moderate dyspnea. Hypertensive blood pressure response to exercise. Average exercise capacity for age. Final LVEF is 75%. No complications. Stress test on 07/15/2020: Conclusion: Normal exercise myocardial perfusion stress test at a moderate workload. No clinical angina noted. Carotid duplex dated 07/20/2018: Showed less than 50% bilateral internal carotid stenosis. She appears to be taking and tolerating her medicines well and tolerating dual antiplatelet therapy. Cardiac catheterization from 07/25/2018: CONCLUSIONS Non obstructive coronary arteries Normal LV size, wall motion, and systolic function Perserved Left Ventricular systolic function with normal EDP LVEF: by LV gram 65 % RECOMMENDATIONS Plavix for at least 12 months Management as per referring Belly Roller Medical therapy vs. Percutaneous Intervention If pt has recurrent exertional anginal symptoms despite maximal medical therapy, could consider PCI of distal LAD. Vessel is near the apex and is about a 2.0 mm vessel. Start lipitor 20mg po qhs and repeat FLP in 6 weeks. Manual sheath removal. CORONARY ANGIOGRAPHY DOMINANCE: Left Dominant LEFT HEART ASSESSMENT Left Ventricular Ejection Fraction: by LV Gram 65 % Normal LV wall motion Normal Left Ventricular systolic function LVEDP: 10 mmHg Normal Left Ventricular End Diastolic Pressure LEFT MAIN: Angiographically normal LEFT ANTERIOR DESCENDING ARTERY: DISTAL LAD: 60 % Stenosis, at apex in 2.0 mm part of the vessel. CIRCUMFLEX ARTERY: Angiographically normal RIGHT CORONARY ARTERY: Angiographically normal COMPLICATIONS No Complications Chest CT scan from 09/18/2020: IMPRESSION: Diffuse fatty infiltration of the liver. The lungs are clear. Pulmonary function test from 09/06/2020: IMPRESSION: Isolated mild restrictive ventilatory impairment with symmetric reduction in diffusing capacity. Labs: LDL Cholesterol 104 mg/dL (0-130) HDL Cholesterol 41 mg/dL (40-) Triglycerides 95 mg/dL (-199) VLDL Cholesterol 19 mg/dL (5-40) Diagnostics: Electrocardiogram Echocardiogram Stress Echocardiogram Stress Test NM Stress Test Cardiac Catheterization Chest X-Ray Pulmonary: Pulmonary Function Test 12/06/20 1055<Electronically signed by Sujit Hager MD>Date Sujit Hager MD Cosigner Signature:Date (if applicable) CC: Dr. Serjio Moreno, DO ~ I have re-examined the patient. There are no clinical changes since date of exam.
[2020-12-23 08:14] LABS: Absolute Lymphocyte Count 2.49 X10^3/uL (0.83-4.51); Absolute Neutrophil Count 4.3 X10^3/uL (2.0-7.7); Basophil# 0.07 X10^3/uL; Basophil% 0.9 % (0-1); Eosinophil# 0.18 X10^3/uL; Eosinophils% 2.3 % (0-5); Hematocrit 39.3 % (37-47); Hemoglobin 13.2 g/dL (12.0-15.0); Lymphocyte # 2.49 X10^3/ul (0.83-4.51); Lymphocyte % 31.4 % (19-41); Mean Corp Hgb Conc 33.6 g/dL (32-36); Mean Corpuscular Hgb 30.8 pg (27.0-32.0); Mean Corpuscular Volume 91.8 fL (81-99); Mean Platelet Vol. 9.5 fl (6.2-12.0); Monocyte# 0.81 X10^3/uL; Monocyte% 10.2 % (0-10); NRBC Flagged by Analyzer 0 % (0-5); Neutrophil # 4.33 X10^3/uL (2.7-7.7); Neutrophil % 54.6 % (47-70); Platelet Count 345 K/mm3 (150-450); RBC Distribution Width CV 12.2 % (11.6-14.6); RBC Distribution Width SD 40.6 fl (35.1-43.9); Red Blood Count 4.28 M/mm3 (4.2-5.4); White Blood Count 7.9 K/mm3 (4.4-11.0)
[2020-12-23 08:22] LABS: International Normalized Ratio 1.1; Partial Thromboplast Time 31.1 Seconds (24.1-36.2); Prothrombin Time (Protime)PT. 13.5 SECONDS (11.7-14.9)
[2020-12-23 08:42] LABS: Anion Gap 8 (5-15); BUN 16 mg/dL (7-18); BUN/Creat Ratio 18.1 RATIO (10-20); Calcium,Total 8.7 mg/dL (8.5-10.1); Chloride 103 mmol/L (98-107); Creatinine, Serum 0.88 mg/dL (0.55-1.02); EST Glomerular Filtration Rate 69 mL/min (>60); Est Glom Filt Rate - Afr Amer 84 mL/min (>60); Glucose 103 mg/dL (74-106); Potassium 3.4 mmol/L (3.5-5.1); Sodium Level 137 mmol/L (136-145)
[2020-12-26 08:04] VITALS: BMI 29.0
[2020-12-27 08:51] LABS: Blood Gas Specimen Type VEN; VBG BASE EXCESS -1 mmol/L (-1.0-3.5); VBG Bicarbonate 25 mmol/L (22-26); VBG PO2 39 mmHg (25-40); VBG SO2 72 % (50-70); VBG TCO2 26 mmol/L (23-33); VBG pCO2 42.8 mmHg (41-51); VBG pH 7.37 (7.32-7.42)
[2020-12-27 08:56] LABS: Blood Gas Specimen Type VEN; VBG BASE EXCESS -1 mmol/L (-1.0-3.5); VBG Bicarbonate 25 mmol/L (22-26); VBG PO2 40 mmHg (25-40); VBG SO2 72 % (50-70); VBG TCO2 26 mmol/L (23-33); VBG pCO2 43.4 mmHg (41-51); VBG pH 7.36 (7.32-7.42)
[2020-12-27 09:00] LABS: Base Excess -1 mmol/L (-2 to +2); Bicarbonate 23.8 mmol/L (22-26); Blood Gas Specimen Type ART; PO2 76 mmHG (75-100); SO2 95 % (95-99); Total Carbon Dioxide 25 mmol/L; pCO2 39.5 mmHg (35-45); pH 7.39 (7.35-7.45)
--- NOTE | 2020-12-27 11:50 | CL.D_ITS ---
Patient Name: DESMOND HART I Study Date: 12/27/2020 Performing: Sujit Hager MD Ht: 68.89 inches 175 cm : 1960 Wt: 196.21 lbs 89 kg Age: 60 Gender: female BSA: 2.05 PROCEDURE(S) PERFORMED [id number]-RJC/LHC/COR/LV CLINICAL PROFILE AND INDICATIONS Indications: Suspected CAD Heart Failure: None Stress/Imaging Date: 07/15/2020tress Test with SPECT MPI: Negative Angina Classification Anginal Classification w/in 2 Weeks: Anginal Equivalent Dyspnea CAD Presentations: Other: chest pain / dyspnea on exertion CONCLUSIONS Right heart pressures - Normal Intracardiac shunting: None Elevated Left Ventricular End Diastolic Pressure (mild) Normal LV size, wall motion,and systolic function LVEF: by LV gram 60 % Single vessel CAD of the LAD (distal) Mitral Valve Insufficiency Mild (post PVC) RECOMMENDATIONS Risk factor modification Medical therapy Case discussed / reviewed with Dr. Lares of Interventional Cardiology DESCRIPTION OF PROCEDURE The patient arrived to the procedure lab. The risks and benefits of the procedure as well as a full d escription of our services here and current unavailability of surgical backup were fully explained to the patient and/or their significant other prior to the catheterization. The Timeout was completed, verifying the correct patient and procedure. The patient's procedural site was prepped and draped in the usual fashion. Local anesthetic was given subcutaneously to right radial region with Lidocaine 2% . Using a modified Seldinger technique, arterial access was obtained via the right radial artery, a 6 Fr sheath was inserted. A 7Fr thermal dilution catheter was inserted and right heart pressures were recorded, it was then advanced to PA position for cardiac outputs. Thermal dilution cardiac outputs w ere then recorded. O2 saturations were then obtained. Left Ventriculography was performed in MATA proj ection using a 4 Fr. Pigtail catheter. The Thermal dilution catheter was then removed. Right Coronary Artery selective angiography was then performed in multiple views using a 5 Fr. JR 4 c atheter. Left Coronary Artery selective angiography was performed in multiple views using a 5 Fr. JL3 .5 catheter.The venous sheath was then pulled and manual compression applied until hemostasis achieve d. The arterial sheath was pulled and a TR Band was applied for hemostasis CORONARY ANGIOGRAPHY DOMINANCE: Left Dominant LEFT HEART ASSESSMENT Left Ventricular Ejection Fraction: by LV Gram 60 % Normal LV wall motion Elevated Left Ventricular End Diastolic Pressure LVEDP: 15 mmHg RIGHT HEART ASSESSMENT Thermal CO: 4.99 Thermal CI: 2.43 Anders CO: 6.6 Anders CI: 3.22 PW: 12/08 4 PA: 14/06 6 RV: 21/-3 2 RA: 05/31 0 PVR: 32 Right Heart pressures - normal Intracardiac shunting: None LEFT MAIN: Angiographically normal LEFT ANTERIOR DESCENDING ARTERY: DISTAL LAD: eccentric: smooth: 25 - 50 % Stenosis CIRCUMFLEX ARTERY: Angiographically normal RIGHT CORONARY ARTERY: Angiographically normal VALVE FINDINGS: Mitral Valve Insufficiency - Grade 1 (post PVC) AORTIC ROOT: Angiographically normal COMPLICATIONS No Complications PROCEDURE MEDICATIONS Fentanyl 50 mcg IV Versed 1 mg IV Fentanyl 50 mcg IV Heparin given IA 12/27/2020 08:42:09 Verapamil 2.5mg, Ntg 100mcgs, 3000 units of Heparin given IA 12/27/2020 08:42:09 SUMMARY OF HEMODYNAMIC DATA Time AIR REST ECG 07:53:23 RA 05/31 (0) 08:47:38 RV 21/-3, 2 08:48:01 PA 14/06 (6) PA 08:51:15 PW 12/08 (4) PV 08:52:08 LV 116/-14, 14 08:59:20 LV 115/-15, 15 08:59:28 LV 116/-17, 10 09:00:11 PW 04/14 (9) 09:00:11 LV 113/-17, 12 09:01:37 PW 14 (12) 09:01:37 LVp 111/-17, 12 09:02:02 AOp 98/55 (75) 09:02:07 PA 22/12 (15) 09:02:36 RV 26/-1, 7 09:02:55 RA 11/01 (2) 09:03:12 AO 97/58 (79) SA 09:08:30 AO 112/65 (87) 09:16:31 Type SV CO (l/m) CI (l/m/ HR Time AIR REST Thermal 68.40 4.99 2.43 73 07:53:23 Anders 90.40 6.60 3.22 73 07:53:23 Label % O2 Pres/Loc Time AIR REST IVC 72 SV 10:12:29 SVC 75 10:12:40 PA 72 PA 10:12:48 AO 95 PV 10:12:54 Signed By Sujit Hager MD On 12/27/2020 11:50:08 AM Sujit Hager MD
[2020-12-27 15:41] LABS: Blood Gas Specimen Type VEN; VBG BASE EXCESS -1 mmol/L (-1.0-3.5); VBG Bicarbonate 24 mmol/L (22-26); VBG PO2 41 mmHg (25-40); VBG SO2 75 % (50-70); VBG TCO2 25 mmol/L (23-33); VBG pCO2 42.1 mmHg (41-51); VBG pH 7.36 (7.32-7.42)
== END 2020-12-27 11:55 | disposition home or self-care (01) ==
LOC: CLSP 07:39
PROVIDERS: PCP Preventive Medicine Occupational Medicine; Referring Provider Internal Medicine Cardiovascular Disease; Visit Provider Internal Medicine Cardiovascular Disease
DX: I25.10 Atherosclerotic heart disease of native coronary artery without angina pectoris (principal); I34.0 Nonrheumatic mitral (valve) insufficiency; I10 Essential (primary) hypertension; E78.5 Hyperlipidemia, unspecified; I65.23 Occlusion and stenosis of bilateral carotid arteries; Z79.02 Long term (current) use of antithrombotics/antiplatelets; Z79.82 Long term (current) use of aspirin; Z79.899 Other long term (current) drug therapy
CPT/HCPCS: 36415; 80048; 82803; 85025; 85610; 85730; 93460; 99152; 99153; J7040; Q9967; C1751; C1769; C1894

== ENCOUNTER 2021-07-25 07:53 | Outpatient (CLI) | payer OTHER, SELFPAY ==
[2021-07-25 08:37] LABS: AST(SGOT) 71 U/L (15-37); Alanine Aminotransfer ALT/SGPT 61 U/L (13-56); Albumin, Serum 3.8 g/dL (3.2-5.0); Alkaline Phosphatase 79 U/L (45-117); Anion Gap 7 (5-15); BUN 15 mg/dL (7-18); Calcium,Total 9.5 mg/dL (8.5-10.1); Chloride 103 mmol/L (98-107); Cholesterol 178 mg/dL (200); Creatinine, Serum 0.83 mg/dL (0.55-1.02); EST Glomerular Filtration Rate 74 mL/min (>60); Est Glom Filt Rate - Afr Amer 90 mL/min (>60); Globulin 3.9 g/dL (2.2-4.2); Glucose 114 mg/dL (74-106); High Density Lipoprotein 40 mg/dL; Potassium 3.6 mmol/L (3.5-5.1); Protein, Total 7.7 g/dL (6.4-8.2); Sodium Level 138 mmol/L (136-145); Triglycerides 107 mg/dL; Very Low Density Lipoprotein 21 mg/dL (5-40)
== END 2021-07-25 23:59 | disposition home or self-care (01) ==
LOC: LAB 07:55
PROVIDERS: PCP Preventive Medicine Occupational Medicine; Referring Provider Nurse Practitioner Family; Visit Provider Nurse Practitioner Family
DX: Z00.00 Encounter for general adult medical examination without abnormal findings (principal)
CPT/HCPCS: 36415; 80053; 80061

== ENCOUNTER 2021-08-19 16:45 | Outpatient (CLI) | payer OTHER, SELFPAY ==
--- NOTE | 2021-08-19 16:32 | BI_ITS ---
MAMMOGRAPHY - BILATERAL SCREENING REASON FOR EXAM: Female, 60 years old. Routine annual screening examination. PERTINENT HISTORY: Grandmother with breast cancer. TECHNIQUE: Digital bilateral breast bill (3D mammographic acquisition) in the CC and MLO projections. 2-D mediolateral oblique (MLO) and craniocaudad (CC) views of both breasts were obtained. CAD: Full Field Digital Mammography with Computer Added Detection was performed. COMPARISON: Comparison is made with prior study dated 05/07/2020 and 03/30/2019. FINDINGS: Breast Composition: There are scattered areas of fibroglandular density. There are no dominant masses or suspicious calcifications. No other significant abnormalities are identified. There has been no significant change since the prior study. BI/SCRN MAMM (CAD)W/BILL BILAT IMPRESSION: Stable bilateral screening mammogram. Yearly follow-up mammogram recommended. (A) ASSESSMENT CATEGORY: BIRADS Category 1: Negative. A letter regarding these results will be sent to the patient by the facility within 30 days. Approximately 10% of breast cancers are not detected by mammography. A normal mammogram should not delay biopsy of a clinically suspicious abnormality. [id number] Electronically Signed: Juan Gu MD at 8:26 EDT ,
== END 2021-08-19 23:59 | disposition home or self-care (01) ==
LOC: OPBI 08-20 06:57
PROVIDERS: PCP Preventive Medicine Occupational Medicine; Visit Provider Nurse Practitioner Family
DX: Z12.31 Encounter for screening mammogram for malignant neoplasm of breast (principal)
CPT/HCPCS: 77063; 77067

== ENCOUNTER → 2022-03-27 | Outpatient (CLI) | payer OTHER, SELFPAY ==
--- NOTE | 2022-03-27 07:27 | US_ITS ---
STUDY: ABDOMINAL ULTRASOUND - RIGHT UPPER QUADRANT REASON FOR VISIT: Female, 61 years old ELEVATED ENZYMES TECHNIQUE: Ultrasound evaluation of the right upper quadrant was performed with real-time and static araujo-scale imaging. TECHNICAL QUALITY: Adequate. COMPARISON: None. FINDINGS: Liver: The liver is enlarged and measures 18.5 cm. There is increased echogenicity consistent with fatty infiltration. The bile ducts are within normal limits. There is hepatic color flow. The direction of portal flow is hepatopetal. There is no demonstrated mass lesion. Gallbladder: The patient is status post cholecystectomy. Common Bile Duct (C.B.D.): The common bile duct measures 6 mm. Pancreas: Normal size of the head, body and tail of the pancreas. There is normal echogenicity of the pancreas. There is no demonstrated pancreatic mass or cyst. Right Kidney: Normal size of the right kidney. The right kidney measures 11.8 cm x 5.2 cm x 5.2 cm. Normal renal cortex. The right cortex measures 1.2 cm. There is no demonstrated renal mass or cyst. There is no right hydronephrosis. US/Abdomen Limited IMPRESSION: Hepatomegaly and fatty infiltration of the liver. Electronically Signed: Juan Gu MD at 11:07 EDT ,
== END | disposition home or self-care (01) ==
LOC: US 07:27
PROVIDERS: PCP Preventive Medicine Occupational Medicine; Referring Provider Nurse Practitioner Family; Visit Provider Nurse Practitioner Family
DX: R74.8 Abnormal levels of other serum enzymes (principal)
CPT/HCPCS: 76705

== ENCOUNTER → 2022-03-30 | Outpatient (CLI) | payer OTHER, SELFPAY ==
[2022-03-30 10:39] LABS: Hepatitis C Antibody Non-Reactive (Nonreactive)
[2022-03-31 06:08] LABS: HEPATITIS B SURFACE AG Negative (Negative); Hep C Antibodies <0.1 s/co ratio (0.0-0.9); Hepatitis A IgM Antibody Negative (Negative); Hepatitis B Core AB IgM Negative (Negative)
== END | disposition home or self-care (01) ==
LOC: LAB 07:51
PROVIDERS: PCP Preventive Medicine Occupational Medicine; Referring Provider Nurse Practitioner Family; Visit Provider Nurse Practitioner Family
DX: R74.8 Abnormal levels of other serum enzymes (principal); Z11.59 Encounter for screening for other viral diseases
CPT/HCPCS: 36415; 80074; 86803

== ENCOUNTER → 2022-05-13 | Outpatient (CLI) | payer OTHER, SELFPAY ==
[2022-05-13 08:43] LABS: CRP 9.93 mg/L (0.0-3.0)
== END | disposition home or self-care (01) ==
LOC: LAB 07:42
PROVIDERS: PCP Preventive Medicine Occupational Medicine; Referring Provider Preventive Medicine Occupational Medicine; Visit Provider Preventive Medicine Occupational Medicine
DX: K76.0 Fatty (change of) liver, not elsewhere classified (principal)
CPT/HCPCS: 36415; 82533; 86140

== ENCOUNTER → 2022-05-19 | Outpatient (CLI) | payer OTHER, SELFPAY ==
--- NOTE | 2022-05-19 07:27 | US_ITS ---
STUDY: ABDOMINAL ULTRASOUND - ELASTOGRAPHY REASON FOR VISIT: Female, 61 years old. Fatty infiltration of the liver. TECHNIQUE: Liver stiffness measurements were obtained on a [employer] RS 85 ultrasound machine using a CA 1-7 probe following the SRU guidelines. 3 measurements were obtained using a 2-D-SWE method. The IQR/M was 22 % suggesting a quality data set. TECHNICAL QUALITY: Adequate. COMPARISON: Comparison is made with prior study 03/27/2022. FINDINGS: Liver: Hepatomegaly. Fatty infiltration of the liver. Median liver stiffness measured 11 kPa. US/Elastography Parenchyma/Organ IMPRESSION: Liver stiffness measures 11 kPa compatible with F2-F3 (Mild to moderate liver fibrosis) Metavir score. Electronically Signed: Juan Gu MD at 8:43 EST ,
== END | disposition home or self-care (01) ==
LOC: US 07:25
PROVIDERS: PCP Preventive Medicine Occupational Medicine; Referring Provider Preventive Medicine Occupational Medicine; Visit Provider Preventive Medicine Occupational Medicine
DX: K76.0 Fatty (change of) liver, not elsewhere classified (principal); R16.0 Hepatomegaly, not elsewhere classified
CPT/HCPCS: 76981

== ENCOUNTER → 2022-08-05 | Outpatient (CLI) | payer OTHER, SELFPAY ==
[2022-08-05 08:43] LABS: Microalbumin,Random Urine 6.5 mg/L (NO RANGE EST.)
[2022-08-05 09:04] LABS: AST(SGOT) 92 U/L (15-37); Alanine Aminotransfer ALT/SGPT 62 U/L (13-56); Alkaline Phosphatase 83 U/L (45-117); Anion Gap 5 (5-15); BUN 20 mg/dL (7-18); Calcium,Total 9.8 mg/dL (8.5-10.1); Chloride 104 mmol/L (98-107); Cholesterol 216 mg/dL (200); Creatinine, Serum 0.83 mg/dL (0.55-1.02); EST Glomerular Filtration Rate 74 mL/min (>60); Est Glom Filt Rate - Afr Amer 89 mL/min (>60); Glucose 121 mg/dL (74-106); High Density Lipoprotein 42 mg/dL; Potassium 4.4 mmol/L (3.5-5.1); Sodium Level 137 mmol/L (136-145); Triglycerides 143 mg/dL; Very Low Density Lipoprotein 29 mg/dL (5-40)
== END | disposition home or self-care (01) ==
LOC: LAB 07:49
PROVIDERS: PCP Preventive Medicine Occupational Medicine; Referring Provider Preventive Medicine Occupational Medicine; Visit Provider Preventive Medicine Occupational Medicine
DX: E78.5 Hyperlipidemia, unspecified (principal); I10 Essential (primary) hypertension
CPT/HCPCS: 36415; 80053; 80061; 82043

== ENCOUNTER → 2022-08-20 | Outpatient (CLI) | payer OTHER, SELFPAY ==
--- NOTE | 2022-08-20 16:01 | BI_ITS ---
MAMMOGRAPHY - BILATERAL SCREENING REASON FOR EXAM: Female, 61 years old. Routine annual screening examination. PERTINENT HISTORY: Grandmother with breast cancer. TECHNIQUE: Digital bilateral breast bill (3D mammographic acquisition) in the CC and MLO projections. 2-D mediolateral oblique (MLO) and craniocaudad (CC) views of both breasts were obtained. CAD: Full Field Digital Mammography with Computer Added Detection was performed. COMPARISON: Comparison is made with prior study August 19, 2021 and May 10, 2020. FINDINGS: Breast Composition: There are scattered areas of fibroglandular density. There are no dominant masses or suspicious calcifications. Stable benign-appearing right axillary lymph nodes. No other significant abnormalities are identified. There has been no significant change since the prior study. BI/SCRN MAMM (CAD)W/BILL BILAT IMPRESSION: Stable bilateral screening mammogram. Yearly follow-up mammogram recommended. (A) ASSESSMENT CATEGORY: BIRADS Category 2: Benign. A letter regarding these results will be sent to the patient by the facility within 30 days. Approximately 10% of breast cancers are not detected by mammography. A normal mammogram should not delay biopsy of a clinically suspicious abnormality. [id number] Electronically Signed: Juan Gu MD at 8:10 EDT ,
--- NOTE | 2022-08-20 16:05 | BD_ITS ---
STUDY: DUAL ENERGY X-RAY ABSORPTIOMETRY / DXA REASON FOR EXAM: Female, 61 years old. [id number] TECHNIQUE: Bone Mineral Density (BMD) measurements of lumbar spine and bilateral hips were obtained. COMPARISON: Comparison is made with prior study dated May 07, 2020. FINDINGS: Lumbar Spine (L1-L4): g/cm2 (1.030) / T-score (0.1) / Z-score (1.6) Findings are suggestive of normal bone density with a low fracture risk. Left Femur Total: g/cm2 (1.027) / T-score (0.7) / Z-score (1.7) Left Femoral Neck: g/cm2 (0.857) / T-score (0.1) / Z-score (1.4) Right Femur Total: g/cm2 (1.058) / T-score (1.0) / Z-score (2.0) Right Femoral Neck: g/cm2 (0.816) / T-score (-0.3) / Z-score (1.1) The T-Scores on the most recent prior examination were: Lumbar Spine (L1-L4): There has been worsening of bone density since the previous examination. Left Femur Total: which represents an improvement of 3.4%. Right Femur Total: which represents an improvement of 9.3%. BD/Dexa Bone Density Study IMPRESSION: The patient is considered normal as outlined below according to World Edwin Organization (WHO) criteria with a low fracture risk. There has been improvement of bone density since the previous examination. Reference Information: The T-score is the number of standard deviations above or below the standard which is normal for young adults at their peak bone mineral density. The World Health Organization (WHO) interprets the T-scores as follows: Above -1 Normal bone density Between -1 and -2.5 Osteopenia Equal to / or below -2.5 Osteoporosis As a practical clinical guideline, osteopenia may be graded as follows: Mild -1 through -1.5 Moderate -1.6 through -2.0 Severe -2.1 through -2.4 The Z-score is the number of standard deviations above or below age-matched controls. A Z-score of less than -1.5 would be considered abnormal. References: 1. NIH Osteoporosis and Related Bone Diseases www osteo.org 2. International Society for Clinical Densitometry www iscd.org 3. National Osteoporosis Foundation www nof.org Electronically Signed: Juan Gu MD at 15:44 EDT ,
== END | disposition home or self-care (01) ==
LOC: OPBD 15:59
PROVIDERS: PCP Preventive Medicine Occupational Medicine; Referring Provider Nurse Practitioner Family; Visit Provider Nurse Practitioner Family
DX: Z78.0 Asymptomatic menopausal state (principal); Z12.31 Encounter for screening mammogram for malignant neoplasm of breast
CPT/HCPCS: 77063; 77067; 77080

== ENCOUNTER → 2023-01-07 | Outpatient (CLI) | payer OTHER, SELFPAY ==
[2023-01-07 09:10] LABS: Vitamin B12 1798 pg/mL (211-911)
[2023-01-07 09:11] LABS: AST(SGOT) 45 U/L (15-37); Alanine Aminotransfer ALT/SGPT 44 U/L (13-56); Albumin, Serum 3.9 g/dL (3.2-5.0); Alkaline Phosphatase 97 U/L (45-117); Anion Gap 6 (5-15); BUN 19 mg/dL (7-18); BUN/Creat Ratio 22.5 RATIO (10-20); Calcium,Total 9.5 mg/dL (8.5-10.1); Chloride 104 mmol/L (98-107); Creatinine, Serum 0.84 mg/dL (0.55-1.02); EST Glomerular Filtration Rate 73 mL/min (>60); Est Glom Filt Rate - Afr Amer 88 mL/min (>60); Globulin 3.8 g/dL (2.2-4.2); Glucose 114 mg/dL (74-106); Potassium 3.8 mmol/L (3.5-5.1); Protein, Total 7.7 g/dL (6.4-8.2); Sodium Level 137 mmol/L (136-145)
== END | disposition home or self-care (01) ==
LOC: LAB 07:45
PROVIDERS: PCP Preventive Medicine Occupational Medicine; Referring Provider Preventive Medicine Occupational Medicine; Visit Provider Preventive Medicine Occupational Medicine
DX: R74.8 Abnormal levels of other serum enzymes (principal); R20.2 Paresthesia of skin; R79.82 Elevated C-reactive protein (CRP); M54.50 Low back pain, unspecified; M54.16 Radiculopathy, lumbar region
CPT/HCPCS: 36415; 80053; 82607; 86140

== ENCOUNTER → 2023-01-08 | Outpatient (CLI) | payer OTHER, SELFPAY ==
--- NOTE | 2023-01-08 17:05 | RAD_ITS ---
STUDY: X-RAY - LUMBAR SPINE REASON FOR EXAM: Female, 62 years old. LUMBAR PAIN TECHNIQUE: 5 view(s) of the lumbar spine were obtained. COMPARISON: None FINDINGS: Sacralization of L5 with pseudoarticulation bilaterally. Normal lumbar lordosis. There is no substantial scoliosis. There is a normal alignment of the vertebrae. Normal vertebral bodies and endplates. Normal disc space heights. The soft tissue structures are unremarkable. RAD/L/S Spine Min 4 Views IMPRESSION: Transitional vertebrae and pseudoarticulation L5-S1 Electronically Signed: Andrés Lyon MD at 23:30 EDT ,
== END | disposition home or self-care (01) ==
LOC: RAD 17:00
PROVIDERS: PCP Preventive Medicine Occupational Medicine; Referring Provider Preventive Medicine Occupational Medicine; Visit Provider Preventive Medicine Occupational Medicine
DX: M54.50 Low back pain, unspecified (principal)
CPT/HCPCS: 72110

== ENCOUNTER → 2023-02-09 | Outpatient (CLI) | payer OTHER, SELFPAY ==
[2023-02-09 08:59] LABS: Prothrombin Time (Protime)PT. 13.5 SECONDS (11.7-14.9)
[2023-02-09 09:00] LABS: Partial Thromboplast Time 37.9 Seconds (24.1-36.2)
[2023-02-09 09:36] LABS: Ferritin 207 ng/mL (8-252); GGTP 37 U/L (5-55); Iron 94 ug/dL (50-170); Iron Binding Capacity,Total 425 ug/dL (250-450); PERCENT IRON SATURATION 22.1 % (15.0-55.0); T4 Total, Thyroxin 10.9 ug/dL (4.8-13.9)
[2023-02-09 13:55] LABS: Internal QC Validated? YES +Cl - CLEAR BKGD; Monotest Negative (Negative); Record Kit Lot#, Mono 13231163
[2023-02-09 14:16] LABS: HIV - WCH Non-Reactive (Nonreactive); Vitamin B12 286 pg/mL (211-911); Vitamin D,25 Hydroxy 65.3 ng/mL
[2023-02-11 12:09] LABS: ANTINUCLEAR ANTIBODIES DIRECT Negative (Negative); Alpha Antitrypsin Serum 148 mg/dL (101-187); Anti-Mitochondrial AB <20.0 Units (0.0-20.0); Vitamin D 1,25-Dihydroxy 40.4 pg/mL (24.8-81.5)
[2023-02-13 10:08] LABS: AFP, Tumor Marker 5.7 ng/mL (0.0-9.2); Anti-Smooth Muscle ABS 4 Units (0-19); CMV Antibody IgG > 10.00 U/mL (0.00-0.59); Ceruloplasmin 26.4 mg/dL (19.0-39.0); Deamidated Gliadin IgA 3 units (0-19); Deamidated Gliadin IgG 2 units (0-19); EBV Acute VCA IgM < 36.0 U/mL (0.0-35.9); Immunoglobulin A 89 mg/dL (87-352); PROEL- A/G Ratio 1.3 (0.7-1.7); PROEL- Albumin 3.9 g/dL (2.9-4.4); PROEL- Alpha-1 Globulin 0.3 g/dL (0.0-0.4); PROEL- Alpha-2 Globulin 0.8 g/dL (0.4-1.0); PROEL- Beta Globulin 1.2 g/dL (0.7-1.3); PROEL- Gamma Globulin 0.8 g/dL (0.4-1.8); PROEL- Globulin, Total 3.1 g/dL (2.2-3.9); Vitamin A, Retinol 60.4 ug/dL (22.0-69.5)
== END | disposition home or self-care (01) ==
PROVIDERS: PCP Preventive Medicine Occupational Medicine
DX: K76.0 Fatty (change of) liver, not elsewhere classified (principal); R94.5 Abnormal results of liver function studies
CPT/HCPCS: 82103; 82105; 82306; 82390; 82607; 82652; 82728; 82784; 82977; 83516; 83540; 83550; 84165; 84436; 84590; 85610; 85730; 86038; 86308; 86644; 86664; 86665; 86703

== ENCOUNTER 2023-02-22 17:30 | Outpatient (RCR) | payer OTHER, SELFPAY ==
--- NOTE | 2023-01-29 07:28 | HP.PTEVAL_ITS ---
Patient's Visit Information Visit Information Visit Information: DESMOND HART is a 62 year old F referred to Physical Therapy by Dr. Serjio Moreno DO with a diagnosis of Low back pain. Date of Evaluation: 01/25/23 Physical Therapist: Juan Hansen DPT Visit Plan Frequency: 2x /Week Duration: 4 Weeks Plan: 2x/week for 4 weeks Subjective Subjective: Pt. is here today for her initial evaluation with diagnosis of low back pain. Pt. reports having increased pain for years, but feels like recently her pain has been worse. She feels like her symptoms have recently become worse after stopping taking care of her mother. Pt. she reports that her pain is fairly central without radicular symptoms into her LEs. She does have some pain that radiates into her buttock at times. Pt. denies N/T and no myotomal weakness noted. Pt. reports that her legs have not been giving out on her either. Pt. has not tried any exercises yet. Pt. uses heat at times. Pt. has a seated job. She reports thinking this has something to do with her increase in symptoms. She had been taking care of her mother and was staying active, but she is no longer doing this and thinks this lack of activity has contributed to her symptoms. Pain Bilateral Back: Pain Intensity (Out of 10): 7 Pain Intensity Range: 0 and 5 Comment: L>R Objective Objective: POSTURE: Pt. has guarded posture, with FH and rounded shoulders. Pt. has sway back like posture in lumbar spine. PALPATION: pt. has tenderness throughout lumbar spine, erector spinae of lumbar spine. Hypomobility to lumbar spine with spring testing. Increased pain at L4-L5 region. NEURO: normal in BLEs, normal sensation and normal DTR of BLEs. ROM: LUMBAR SPINE: flexion min loss increase NW, exte mod loss increase NW, SB min loss bilat increase NW, rotation min loss increase NW. Pt. has tight B HS and tight hip flexors. MMT: Pt has 5/5 strength throughout BLEs, distally. Pt. has 4/5 strength throughout B hips and poor core strength. GAIT: PT. has very rigid posture with gait. Pt. has minimal arm swing with gait. sway back posture. Special Tests L/S Slump test left side: Negative L/S Slump test right side: Negative L/S Left Straight Leg Raise: Negative L/S Right Straight Leg Raise: Negative Lumbar Standing: Flexion - Mechanical Response: No effect Lumbar Standing: Flexion - Symptoms During Testing: Decreases Lumbar Standing: Flexion - Symptoms After Testing: No better Lumbar Standing: Extension - Mechanical Response: No effect Lumbar Standing: Extension - Symptoms During Testing: Increases Lumbar Standing: Extension - Symptoms After Testing: Worse Lumbar Standing: Right Side Glides - Mechanical Response: No effect Lumbar Standing: Right Side [place] - Symptoms During Testing: No effect Lumbar Standing: Right Side [place] - Symptoms After Testing: No effect Lumbar Standing: Left Side [place] - Mechanical Response: No effect Lumbar Standing: Left Side [place] - Symptoms During Testing: No effect Lumbar Standing: Left Side [place] - Symptoms After Testing: No effect Lumbar Lying: Flexion - Mechanical Response: No effect Lumbar Lying: Flexion - Symptoms During Testing: Decreases Lumbar Lying: Flexion - Symptoms After Testing: Better Lumbar Lying: Extension - Mechanical Response: No effect Lumbar Lying: Extension - Symptoms During Testing: Increases Lumbar Lying: Extension - Symptoms After Testing: Worse Balance/Special Test Scores Oswestry Low Back Score: 19 Goals Goal 1:: LTG: Pt. to be I with HEP. Goal Time Frame: 4-6 Weeks Goal 2:: STG: Pt. to have increased lumbar ROM to greater than 50% of normal without increase in symptoms. Goal Time Frame: 2-4 Weeks Goal 3:: LTG: Pt. to have increased core strength and B hips to 5/5 throughout to reduce stress to lumbar spine with all functional mobility. Goal Time Frame: 4-6 Weeks Goal 4:: LTG: Pt. to complete all work activities without increase in symptoms. Goal Time Frame: 4-6 Weeks Goal 5:: LTG: Pt. to complete all recreational activities without limitations. Goal Time Frame: 4-6 Weeks Rehabilitation Potential Physical Therapy Diagnosis: Pt. has signs and symptoms consistent with chronic low back pain. It feels like she has lumbar derangement, without radiculopathy. Pt. initially had relief with flexion, but ultimately would benefit from extension progression. Progressing to core stability. Rehabilitation Potential: Good Anticipated Interventions Patient/Client Instruction: Educate patient on: Condition, Plan of Care, Risk Factors and Benefits of Fitness Program For the Purpose of:: To improve health and function, To foster healthy habits, To improve decision making, To facilitate caregiver knowledge, To improve self management, To prevent re-injury and To improve ability to perform tasks related to life management Therapeutic Exercise to Include: Strength training, Power training, Endurance training, Coordination, Postural training, Flexibilty training, Dynamic Lumbar Stabilization and [place] Exercises For the Purpose of:: To decrease pain, To increase ROM, To improve nutrient delivery to tissue, To increase oxygenation perfusion, To improve muscle performance and motor function, To improve ability to perform ADL's, To increase tolerance to activity/condition/position, To improve health of tissue, To decrease soft tissue restriction and To increase flexibility/ROM Manual Therapy Techniques to Include: Mobilization and Functional dry needling For the Purpose of:: To decrease pain, To increase ROM, To improve nutrient delivery to tissue, To increase oxygenation perfusion and To improve muscle performance and motor function Ultrasound (thermal/non thermal): Yes For the Purpose of:: To decrease pain, To increase ROM and To improve nutrient delivery to tissue Text: Thank you for the opportunity to evaluate your patient. For Medicare and Medicare HMO plans, please review the plan of care and approve it. It will need to be FAXED BACK to us at [phone] for Medicare purposes. For Medicare only, by signing this I certify the plan of care. Please let me know if there are questions or concerns regarding this plan of care. Physician Signature: Date:
--- NOTE | 2023-02-23 07:53 | HP.PTREVAL ---
Re-Evaluation Intro: Dr. Serjio Moreno, DO, It has been my pleasure to treat DESMOND HART over the last 8 visits for Low back pain. Please see the progress note below for an update on the physical therapy plan of care! Subjective Subjective: Pt. reports still having N/T in her L thigh and foot pretty much constantly. She was having some temp relief with PT. Extension seems to make worse, slight reprieve with flexion, but not long. Objective Objective/Function: ROM: Flexion min/nil loss decrease NB, ext mod loss increase NW, SB min loss bilat increase NW, rotation min loss increase NW bilat. Pt. has tight HS and hip flexors. Pt. does have decreased sensation to light touch in L thigh and less so distally. Pt. has normal DTR bilaterall LEs. Pt. is able to rise on heels and toes well. MMT: LLE Pt. does have slight reduced LLE strength knee ext 4+/5, flexion 4/5; hip: flexion 4/5. RLE 5/5 throughout. GAIT: fairly normal, stairs fairly normal. + Slump test for distal radiculopathy and + SLR for LLE radiculopathy. At this point in time, we have not had a marked reduction in symptoms. Slight temporarily, but nothing progressing in positive nature. Ext seems to peripherilze her symptoms. At this point in time I would like her to follow up with physician to determine best course of action. Plan Plan Plan: At this point in time I would like her to follow up with physician to determine best course of action. Possible need for further imaging. I will leave case open pending physician guidence. Balance/Gait/Functional tests Balance/Special Test Scores Oswestry Low Back Score: 19 Goals Goals Goal 1:: LTG: Pt. to be I with HEP. Goal Time Frame: 4-6 Weeks Goal Progress: Progressing Goal 2:: STG: Pt. to have increased lumbar ROM to greater than 50% of normal without increase in symptoms. Goal Time Frame: 2-4 Weeks Goal Progress: Not Progressing Goal 3:: LTG: Pt. to have increased core strength and B hips to 5/5 throughout to reduce stress to lumbar spine with all functional mobility. Goal Time Frame: 4-6 Weeks Goal Progress: Not Progressing Goal 4:: LTG: Pt. to complete all work activities without increase in symptoms. Goal Time Frame: 4-6 Weeks Goal Progress: Not Progressing Goal 5:: LTG: Pt. to complete all recreational activities without limitations. Goal Time Frame: 4-6 Weeks Goal Progress: Not Progressing Anticipated Interventions Anticipated Interventions Patient/Client Instruction: Educate patient on: Condition, Plan of Care, Risk Factors and Benefits of Fitness Program For the Purpose of:: To improve health and function, To foster healthy habits, To improve decision making, To facilitate caregiver knowledge, To improve self management, To prevent re-injury and To improve ability to perform tasks related to life management Therapeutic Exercise to Include: Strength training, Power training, Endurance training, Coordination, Postural training, Flexibilty training, Dynamic Lumbar Stabilization and [place] Exercises For the Purpose of:: To decrease pain, To increase ROM, To improve nutrient delivery to tissue, To increase oxygenation perfusion, To improve muscle performance and motor function, To improve ability to perform ADL's, To increase tolerance to activity/condition/position, To improve health of tissue, To decrease soft tissue restriction and To increase flexibility/ROM Manual Therapy Techniques to Include: Mobilization and Functional dry needling For the Purpose of:: To decrease pain, To increase ROM, To improve nutrient delivery to tissue, To increase oxygenation perfusion and To improve muscle performance and motor function Ultrasound (thermal/non thermal): Yes For the Purpose of:: To decrease pain, To increase ROM and To improve nutrient delivery to tissue Re-Evaluation Ending Re-evaluation ending: Please do not hesitate to contact me at [phone] by phone or if you have questions or concerns regarding this new plan of care! Sincerely, Juan Hansen DPT
== END 2023-02-22 19:00 | disposition home or self-care (01) ==
LOC: PT 17:30
PROVIDERS: PCP Preventive Medicine Occupational Medicine; Referring Provider Preventive Medicine Occupational Medicine; Visit Provider Preventive Medicine Occupational Medicine
DX: M54.50 Low back pain, unspecified (principal)
CPT/HCPCS: 97110; 97161; 97164

== ENCOUNTER → 2023-04-12 | Outpatient (CLI) | payer OTHER, SELFPAY ==
--- NOTE | 2023-04-12 16:46 | MRI_ITS ---
EXAM: MR Spine Lumbar W/O Contrast HISTORY: LUMBAR PAIN RADIATING INTO L LEG TECHNIQUE: MR Spine Lumbar W/O Contrast COMPARISON: XR lumbar spine January 08, 2023. LIMITATIONS: None. FINDINGS: There is a transitional vertebra at the lumbosacral junction. The first ribless vertebral body is designated L1. No acute fracture. At L3-4, left-sided disc bulge and facet arthrosis results in mild left neural foraminal narrowing. At L4-5, disc bulge, facet arthrosis and buckling of the ligamentum flavum results in mild bilateral neural foraminal narrowing and moderate central canal stenosis. At L5-S1, there is no significant neural foraminal narrowing or central canal stenosis. MRI/Spine Lumbar (Routine) IMPRESSION: Mild degenerative disc disease in the lower lumbar spine as described. Electronically Signed: Enzo Rangel MD at 2:04 EST ,
== END | disposition home or self-care (01) ==
LOC: MRI 16:44
PROVIDERS: PCP Preventive Medicine Occupational Medicine; Referring Provider Preventive Medicine Occupational Medicine; Visit Provider Preventive Medicine Occupational Medicine
DX: M54.50 Low back pain, unspecified (principal)
CPT/HCPCS: 72148

== ENCOUNTER → 2023-04-12 | Outpatient (CLI) | payer OTHER, SELFPAY ==
[2023-04-12 08:51] LABS: AST(SGOT) 38 U/L (15-37); Alanine Aminotransfer ALT/SGPT 32 U/L (13-56); Albumin, Serum 3.9 g/dL (3.2-5.0); Alkaline Phosphatase 93 U/L (45-117); Bilirubin, Direct 0.13 mg/dL (0.00-0.30); Globulin 3.9 g/dL (2.2-4.2); Protein, Total 7.8 g/dL (6.4-8.2)
== END | disposition home or self-care (01) ==
LOC: LAB 07:32
PROVIDERS: PCP Preventive Medicine Occupational Medicine
DX: R94.5 Abnormal results of liver function studies (principal); K76.0 Fatty (change of) liver, not elsewhere classified
CPT/HCPCS: 36415; 80076

== ENCOUNTER 2023-09-18 21:24 | Emergency (ER) | payer OTHER, SELFPAY ==
[2023-09-18 21:25] VITALS: BP 182/93; PULSE 113; RESP 19; TEMP 36.4; O2SAT 98; BMI 31.6
[2023-09-18 21:28] VITALS: BP 173/99; PULSE 109; RESP 18; TEMP 36.7; O2SAT 95
--- NOTE | 2023-09-18 21:58 | CT_ITS ---
STUDY: CT ABDOMEN AND PELVIS WITHOUT CONTRAST REASON FOR EXAM: Female, 62 years old. Kidney Stone RADIATION DOSAGE (If Supplied By Facility): CTDIvol = ( 16.61 ) mGy, DLP = ( 858.81 ) mGycm TECHNIQUE: Transaxial images were obtained from the dome of the diaphragm to the symphysis pubis without oral contrast, and without intravenous contrast. Sagittal and coronal images were reconstructed. Individualized dose optimization techniques were used for this CT. COMPARISON: None. FINDINGS: The visualized lung bases are unremarkable. The visualized portions of the heart are within normal limits. There is decreased attenuation of the liver consistent with steatosis. There are surgical clips in the gallbladder fossa consistent with a prior cholecystectomy. Normal spleen. Normal pancreas. Normal bilateral adrenal glands. Normal right kidney. Normal left kidney. There is a small hiatal hernia. Normal small intestine. There are multiple colonic diverticula consistent with diverticulosis. There are surgical clips in the region of the appendix consistent with a prior appendectomy. Normal abdominal aorta. Normal inferior vena cava. Normal retroperitoneum. 2 mm stone in the dependent portion of the bladder. Normal abdominal wall. Some sacralization of the L5 segment. Degenerative disc disease at L4/L5. CT/Abdomen/Pelvis without Cont IMPRESSION: 1. No renal or ureteral stone. 2. 2 mm stone in the base of the bladder. 3. Sigmoid diverticulosis without diverticulitis. 4. Status post cholecystectomy with fatty infiltration liver. Electronically Signed: Kristofer Pepe MD at 0:03 EDT ,
[2023-09-18 22:11] LABS: Absolute Neutrophil Count 6.9 X10^3/uL (2.0-7.7); Basophil# 0.09 X10^3/uL; Basophil% 0.9 % (0-1); Eosinophil# 0.18 X10^3/uL; Eosinophils% 1.9 % (0-5); Hematocrit 40.3 % (37-47); Hemoglobin 13.4 g/dL (12.0-15.0); Lymphocyte % 17.6 % (19-41); Mean Corp Hgb Conc 33.3 g/dL (32-36); Mean Corpuscular Hgb 30.2 pg (27.0-32.0); Mean Platelet Vol. 9.6 fl (6.2-12.0); Monocyte# 0.72 X10^3/uL; Monocyte% 7.5 % (0-10); NRBC Flagged by Analyzer 0 % (0-5); Neutrophil % 71.6 % (47-70); Platelet Count 353 K/mm3 (150-450); RBC Distribution Width CV 12.1 % (11.6-14.6); RBC Distribution Width SD 39.9 fl (35.1-43.9); Red Blood Count 4.43 M/mm3 (4.2-5.4); White Blood Count 9.6 K/mm3 (4.4-11.0)
[2023-09-18] MEDS: 0.9% Normal Saline (1000mL) 1,000 ML 250 ML IV (22:11)
--- NOTE | 2023-09-18 22:11 | EDS_ITS ---
HPI History of Present Illness Chief Complaint: Flank Pain Informant: patient Narrative Narrative: 62-year-old female presenting to the emergency room with abdominal pain flank pain and vomiting. Patient has a history of prior kidney stone. She states that this evening around 1855 hrs. she had increasing low back pain but noted that it seemed higher than where her pain typically is. She noted suddenly it worsened and she had vomiting. She notes the pain seems to be wrapping from the right renal area anterior inferiorly towards the front. She denies diarrhea. Patient notes a prior history of paroxysmal atrial fibrillation hypertension and hyperlipidemia. She currently takes aspirin but no anticoagulants or other antiplatelets. No fevers. No dysuria. [facility] Medical History Atherosclerotic heart disease of [place] coronary artery without angina pectoris Chest pain Essential (primary) hypertension Family history of ischemic heart disease before age 50 History of electrocution Palpitations Paroxysmal atrial fibrillation Shortness of breath Home Medications vitamin D3 250 mcg (10,000 unit)-vitamin K2 45 mcg capsule 1 cap PO DAILY 12/06/20 [History Last Taken Unknown] ascorbic acid (vitamin C) 500 mg tablet 500 mg PO BID 09/10/21 [History Last Taken Unknown] aspirin 81 mg chewable tablet 81 mg PO .COMPLEX 03/20/22 [History Last Taken Unknown] omega-3 fatty acids 1,000 mg capsule 1,000 mg PO DAILY 03/20/22 [History Last Taken Unknown] valsartan 160 mg-hydrochlorothiazide 12.5 mg tablet 1 tab PO DAILY #30 tabs 06/22/22 [Rx Last Taken Unknown] gemfibrozil 600 mg tablet 600 mg PO DAILY #90 tabs 08/05/22 [Rx Last Taken Unknown] atenolol 25 mg tablet 25 mg PO QHS #90 tabs 10/30/22 [Rx Last Taken Unknown] cefuroxime axetil 500 mg tablet 500 mg PO BID 7 days #14 tabs 09/19/23 [Rx Last Taken Unknown] ketorolac 10 mg tablet 10 mg PO Q8H PRN pain #15 tabs 09/19/23 [Rx Last Taken Unknown] ondansetron 4 mg disintegrating tablet 4 mg PO Q6H PRN PRN Nausea #10 tabs 09/19/23 [Rx Last Taken Unknown] Allergy/AdvReac Type Severity Reaction Status Date / Time Sulfa (Sulfonamide Allergy Hives Verified 09/18/23 21:26 Antibiotics) trimethoprim Allergy Hives Verified 09/18/23 21:26 amlodipine AdvReac Severe Hands and Verified 09/18/23 21:26 feet really swell up epinephrine AdvReac Intermediate sensitive Verified 09/18/23 21:26 to TREMORS Opioids - Morphine Analogues AdvReac Intermediate sensitive Verified 09/18/23 21:26 to TREMORS Family History Father , age 66 of CHF related to sepsis and biliary blockage Abdominal aneurysm CAD (coronary artery disease) Carotid artery disease Peripheral vascular disease S/P CABG (coronary artery bypass graft) Mother Hypertension H/O cerebral aneurysm repair CVA (cerebral vascular accident), Onset Age: 53 after cerebral aneurysm repair Surgical History History of appendectomy (1981) History of history of cervical/uterine ablation (2013) History of cholecystectomy (1992) History of detached retina repair (07/2018) History of left heart catheterization (12/26/20) History of right and left heart catheterization (LHC) (~12/27/20) History of right salpingo-oophorectomy (1981) History of tonsillectomy S/P lens implant (~07/2019) Social History Smoking Status: Never smoker alcohol intake: never substance use type: does not use caffeine: Yes Type: carbonated beverages Number of servings: 1 ROS ROS ED Constitutional Constitutional ED: Denies chills, fever(s) or weight loss Eyes Eyes: Denies change in vision or diplopia ENT ENT ED: Denies ear pain, rhinorrhea or sore throat Cardiovascular Cardiovascular: Denies chest pain, orthopnea, palpitations or racing heartbeat Respiratory/Chest Respiratory/Chest: Denies cough, dyspnea or orthopnea Gastrointestinal Gastrointestinal: Reports abdominal pain, nausea and vomiting; Denies diarrhea Genitourinary Genitourinary ED: Denies dysuria, hematuria or urinary frequency Musculoskeletal Musculoskeletal: Reports back pain; Denies arthralgias or myalgias Integumentary Denies abscess or rash Neurologic Neurologic: Denies headache(s) or weakness Psychiatric Psychiatric: Denies anxiety, depression, suicidal ideation or suicidal thoughts Endocrine Endocrinology: Denies polydipsia, polyphagia or polyuria Allergic/Immunologic Allergic/Immunologic ED: Denies mouth swelling, tongue swelling or urticaria EXAM Physical Exam Narrative Exam Narrative: Patient appears uncomfortable pacing the room right hand in the right CVA region. Const Vital Signs: 09/18/23 21:25 09/18/23 21:28 09/18/23 22:25 Temperature 97.6 F L 98.1 F 98.2 F Temperature Source Temporal Oral Oral Pulse Rate 113 H 109 H 97 Respiratory Rate 19 H 18 16 Blood Pressure 182/93 H 173/99 H 146/87 H Blood Pressure Mean 122 123 106 Pulse Ox 98 95 96 Oxygen Delivery Method Room Air Room Air Room Air 09/18/23 23:00 09/19/23 00:51 Temperature 98.7 F 98.1 F Temperature Source Oral Pulse Rate 98 68 Respiratory Rate 18 16 Blood Pressure 148/74 H 148/90 H Blood Pressure Mean 98 109 Pulse Ox 97 98 Oxygen Delivery Method Room Air Positive well nourished and well developed General Appearance ED: well developed HEENT Reports normocephalic, head/scalp atraumatic and moist mucous membranes Eyes PERRL and EOMs intact bilaterally Neck no lymphadenopathy, supple and no JVD Resp normal respiratory effort and clear to auscultation bilaterally Cardio regular rate, regular rhythm and no murmurs Rate: tachycardic GI normal to inspection, nondistended, normoactive bowel sounds and non-tender Palpation: soft Back/Spine no CVA tenderness and normal ROM Extremity normal to inspection General Extremety ED: Negative for edema General Extremity: Negative for edema Neuro oriented x3 and CN's II-XII intact bilaterally Sensorium / Orientation: alert Motor Exam: strength 5/5 throughout Psych mental status grossly normal Mood & Affect: Negative for depressed or tearful Skin no rashes or lesions noted and no wounds MDM MDM MDM Narrative Medical decision making narrative: I did review the patient's previous emergency department visit for CT. White count tonight is 9.6 hemoglobin 13.4 platelet count 353. Creatinine 0.84 with a BUN of 19 CO2 24 normal electrolytes glucose 176. Urinalysis positive for nitrates positive leukocyte Estrace 5-10 white cells 25-50 red cells 3+ bacteria 0-5 squamous cells this was sent for culture. Patient will be placed on cefuroxime. CT of the ab pelvis was obtained.There was this demonstrates a 2 mm stone in the dependent portion of the bladder. Please see Jeff financial administrator read for full details. There are a few scattered colonic diverticula and a small hiatal hernia. Given the sudden onset of the symptoms of the pain I think the 2 mm stone in the bladder is most likely cause of her symptoms. Urine I think we need to treat I will write for pain medication. She did receive Toradol which did improve her pain here. I will write for that at home given her sensitivity to 2 opioids. History & Record Review Discussion w/independent historian: Patient Additional record(s) reviewed:: Prior outpatient record, Prior ED visit and Prior labs Lab Data Attestation: I reviewed the patient's lab results. Labs: Laboratory Results - last 24 hr 09/18/23 09/18/23 21:43 22:30 WBC 9.6 RBC 4.43 Hgb 13.4 Hct 40.3 MCV 91.0 MCH 30.2 MCHC 33.3 RDW Std Deviation 39.9 RDW Coeff of Edvin 12.1 Plt Count 353 MPV 9.6 Immature Gran % (Auto) 0.500 Neut % (Auto) 71.6 H Lymph % (Auto) 17.6 L Casey % (Auto) 7.5 Eos % (Auto) 1.9 Baso % (Auto) 0.9 Absolute Neuts (auto) 6.9 Absolute Lymphs (auto) 1.70 Nucleated RBC % 0 Sodium 140 Potassium 3.7 Chloride 107 Carbon Dioxide 24.0 Anion Gap 9 BUN 19 H Creatinine 0.84 Estim Creat Clear Calc 86.21 Est GFR (MDRD) Af Amer 88 Est GFR (MDRD) Non-Af 72 BUN/Creatinine Ratio 22.5 H Glucose 176 H Calcium 9.6 Urine Color Lisa Urine Clarity Sl. Cloudy Urine pH 5.0 Ur Specific [place] 1.025 Urine Protein 100 H Urine Glucose (UA) Normal Urine Ketones 5 H Urine Occult Blood 250 H Urine Nitrite Positive H Urine Bilirubin Negative Urine Urobilinogen 1 H Ur Leukocyte Esterase 100 H Urine RBC 25-50 SEEN Urine WBC 5-10 SEEN Ur Squamous Epith Cells 0-5 SEEN Urine Bacteria 3+ Urine Mucus 0 SEEN Radiography Diagnostic Testing: Clinical Impression(s) from Imaging Studies Abdomen/Pelvis CT 09/18/23 21:58 IMPRESSION: 1. No renal or ureteral stone. 2. 2 mm stone in the base of the bladder. 3. Sigmoid diverticulosis without diverticulitis. 4. Status post cholecystectomy with fatty infiltration liver. Electronically Signed: Kristofer Pepe MD at 0:03 EDT , Discharge Plan Triage Chief Complaint: Flank Pain ED Provider: Guzman Mares Dx/Rx/DC Orders Clinical Impression: Acute flank pain, UTI (urinary tract infection), Kidney stone, Vomiting Instructions: UTIs Understanding, ED Kidney Stone with Pain Prescriptions: New cefuroxime axetil 500 mg tablet 500 mg PO BID 7 Days Qty: 14 0RF ketorolac 10 mg tablet 10 mg PO Q8H PRN (Reason: pain) Qty: 15 0RF Rx Instructions: maximum total duration of 5 days from all oral, intranasal, or parenteral formulations ondansetron [ondansetron] 4 mg tablet,disintegrating 4 mg PO Q6H PRN PRN (Reason: Nausea) Qty: 10 0RF No Action vitamin D3-vitamin K2 250 mcg (10,000 unit)-45 mcg capsule 1 cap PO DAILY omega-3 fatty acids 1,000 mg capsule 1,000 mg PO DAILY ascorbic acid (vitamin C) 500 mg tablet 500 mg PO BID aspirin 81 mg tablet,chewable 81 mg PO .COMPLEX Rx Instructions: 81 mg orally 1 tab by mouth on odd days and 2 tabs by mouth on even days; valsartan-hydrochlorothiazide 160-12.5 mg tablet 1 tab PO DAILY Qty: 30 11RF gemfibrozil 600 mg tablet 600 mg PO DAILY Qty: 90 3RF atenolol 25 mg tablet 25 mg PO QHS Qty: 90 3RF Primary Care Provider: Serjio Moreno Referrals: Serjio Moreno DO [Primary Care Provider] - As Needed Disposition Disposition: Home, Self Care Discharge Date/Time: 09/19/23 00:52
[2023-09-18] MEDS: Ondansetron 4 MG/2 ML Vial IV (22:12)
[2023-09-18] MEDS: Ketorolac 30 MG/ML Syringe IV (22:12)
[2023-09-18 22:25] VITALS: BP 146/87; PULSE 97; RESP 16; TEMP 36.8; O2SAT 96
[2023-09-18 22:40] LABS: Mucous, Urine 0 SEEN /hpf (<or=2+)
[2023-09-18 22:41] LABS: Color, Urine Amber (Yellow); Glucose, Dipstick Normal (Normal); Ketone-Dipstick 5 mg/dl (Negative); Leukocyte Esterase-Dipstick 100 /ul (Negative); Nitrite-Dipstick Positive (Negative); Occult Blood-Urine 250 /ul (Negative); Protein-Dipstick 100 mg/dl (Negative); Specific Gravity, Urine 1.025 (1.002-1.030); Urine Bilirubin Dipstick Negative (Negative); Urine Clarity Sl. Cloudy (Clear); Urine Urobilinogen 1 mg/dl (Normal)
[2023-09-18 22:46] LABS: Bacteria 3+ /hpf (None Seen); Red Blood Cells-Urine 25-50 SEEN /hpf (0-5); Squamous Epithelial Cells - UA 0-5 SEEN /hpf (5-10); White Blood Cells 5-10 SEEN /hpf (0-5)
[2023-09-18 23:00] VITALS: BP 148/74; PULSE 98; RESP 18; TEMP 37.1; O2SAT 97
[2023-09-18 23:04] LABS: Anion Gap 9 (5-15); BUN 19 mg/dL (7-18); BUN/Creat Ratio 22.5 RATIO (10-20); Calcium,Total 9.6 mg/dL (8.5-10.1); Chloride 107 mmol/L (98-107); Creatinine, Serum 0.84 mg/dL (0.55-1.02); EST Glomerular Filtration Rate 72 mL/min (>60); Est Glom Filt Rate - Afr Amer 88 mL/min (>60); Estimated Creatinine Clearance 86.21 ml/min; Glucose 176 mg/dL (74-106); Potassium 3.7 mmol/L (3.5-5.1); Sodium Level 140 mmol/L (136-145)
[2023-09-19 00:51] VITALS: BP 148/90; PULSE 68; RESP 16; TEMP 36.7; O2SAT 98
== END 2023-09-19 00:52 | disposition home or self-care (01) ==
PROVIDERS: Emergency Provider Emergency Medicine; PCP Preventive Medicine Occupational Medicine; Visit Provider Emergency Medicine
DX: R10.9 Unspecified abdominal pain (principal); I48.0 Paroxysmal atrial fibrillation; N39.0 Urinary tract infection, site not specified; R11.10 Vomiting, unspecified; N20.0 Calculus of kidney; E78.5 Hyperlipidemia, unspecified; Z79.82 Long term (current) use of aspirin; I10 Essential (primary) hypertension; I25.10 Atherosclerotic heart disease of native coronary artery without angina pectoris; Z79.899 Other long term (current) drug therapy; Z90.49 Acquired absence of other specified parts of digestive tract; Z90.721 Acquired absence of ovaries, unilateral
CPT/HCPCS: 74176; 80048; 81001; 85025; 96361; 96374; 96375; 99283; J7030; A4216; J2405

== ENCOUNTER → 2023-10-01 | Outpatient (CLI) | payer OTHER, SELFPAY ==
--- NOTE | 2023-10-01 07:15 | BI_ITS ---
MAMMOGRAPHY - BILATERAL SCREENING REASON FOR EXAM: Female, 62 years old. Routine annual screening examination. PERTINENT HISTORY: Grandmother with breast cancer. TECHNIQUE: Digital bilateral breast bill (3D mammographic acquisition) in the CC and MLO projections. 2-D mediolateral oblique (MLO) and craniocaudad (CC) views of both breasts were obtained. CAD: Full Field Digital Mammography with Computer Added Detection was performed. COMPARISON: Comparison is made with prior study August 20, 2022 and August 19, 2021. FINDINGS: Breast Composition: There are scattered areas of fibroglandular density. There are no dominant masses or suspicious calcifications. No other significant abnormalities are identified. There has been no significant change since the prior study. BI/SCRN MAMM (CAD)W/BILL BILAT IMPRESSION: Stable bilateral screening mammogram. Yearly follow-up mammogram recommended. (A) ASSESSMENT CATEGORY: BIRADS Category 1: Negative. A letter regarding these results will be sent to the patient by the facility within 30 days. Approximately 10% of breast cancers are not detected by mammography. A normal mammogram should not delay biopsy of a clinically suspicious abnormality. [id number] Electronically Signed: Juan Gu MD at 8:45 EDT ,
[2023-10-01 08:55] LABS: AST(SGOT) 53 U/L (15-37); Alanine Aminotransfer ALT/SGPT 41 U/L (13-56); Albumin, Serum 3.9 g/dL (3.2-5.0); Alkaline Phosphatase 95 U/L (45-117); Anion Gap 11 (5-15); BUN 21 mg/dL (7-18); BUN/Creat Ratio 23.8 RATIO (10-20); Calcium,Total 9.5 mg/dL (8.5-10.1); Chloride 104 mmol/L (98-107); Cholesterol 183 mg/dL (200); Creatinine, Serum 0.88 mg/dL (0.55-1.02); EST Glomerular Filtration Rate 69 mL/min (>60); Est Glom Filt Rate - Afr Amer 83 mL/min (>60); Globulin 3.8 g/dL (2.2-4.2); Glucose 110 mg/dL (74-106); High Density Lipoprotein 37 mg/dL; Potassium 3.7 mmol/L (3.5-5.1); Protein, Total 7.7 g/dL (6.4-8.2); Sodium Level 137 mmol/L (136-145); Triglycerides 115 mg/dL; Very Low Density Lipoprotein 23 mg/dL (5-40)
[2023-10-01 10:14] LABS: Microalbumin,Random Urine 8.5 mg/L (NO RANGE EST.); Microalbumin:Creatinine Ratio 5.9 mg/g CRE (<30 mg/g CRE)
== END | disposition home or self-care (01) ==
PROVIDERS: PCP Preventive Medicine Occupational Medicine; Referring Provider Preventive Medicine Occupational Medicine; Visit Provider Preventive Medicine Occupational Medicine
DX: Z12.31 Encounter for screening mammogram for malignant neoplasm of breast (principal); I10 Essential (primary) hypertension; Z80.3 Family history of malignant neoplasm of breast; E78.5 Hyperlipidemia, unspecified
CPT/HCPCS: 36415; 77063; 77067; 80053; 80061; 82043; 82570

== ENCOUNTER → 2023-11-03 | Outpatient (CLI) | payer OTHER, SELFPAY ==
--- NOTE | 2023-11-03 06:50 | EKG12_ITS ---
Test Reason : PREOP Blood Pressure : / mmHG Vent. Rate : 062 BPM Atrial Rate : 062 BPM P-R Int : 174 ms QRS Dur : 090 ms QT Int : 432 ms P-R-T Axes : 047 047 054 degrees QTc Int : 438 ms Normal sinus rhythm Normal ECG Confirmed by JASON MO, JYOTHI ([id number]), editor department LUCA NATH ([id number]) on 11/03/2023 10:19:52 AM Referred By: CARLOS ABDI Confirmed By:JYOTHI GOMEZ MD
== END | disposition home or self-care (01) ==
LOC: PSN 06:49
PROVIDERS: PCP Preventive Medicine Occupational Medicine; Referring Provider Nurse Practitioner Family; Visit Provider Nurse Practitioner Family
DX: Z01.818 Encounter for other preprocedural examination (principal)
CPT/HCPCS: 93005

== ENCOUNTER 2024-04-06 17:00 | Outpatient (RCR) | payer OTHER, SELFPAY ==
--- NOTE | 2023-12-23 17:00 | HP.PTEVAL ---
Patient's Visit Information Visit Information Visit Information: DESMNOD HART is a 63 year old F referred to Physical Therapy by JI Buitrago with a diagnosis of SPINAL STENOSIS LUMBAR. Date of Evaluation: 12/23/23 Physical Therapist: Sebastián Connors, PT, Cert MDT, OCS Visit Plan Frequency: 2x /Week Duration: 4 Weeks Plan: S/P lumbar surgery bilateral L4-L5 laminectomies ,bilateral partial facetectomy and foraminotomies and decompression L4-5 11/07 BRACE ON ALL TIMES EXCEPT SUPINE PT INTERVENTIONS DLS ,POSTURAL EX'S ,LLE STRENGTHENING QUADS/HAMS/HIP ,LE FLEXABILITY ,AND AEROBIC EX'S AND POSTURE TRAINING Subjective Subjective: This 63 y/o female presents to physical therapy with lumbar surgery bilateral L4-L5 laminectomies ,bilateral partial facetectomy and foraminotomies and decompression L4-L5 on 11/08/[address] [facility] by Dr Johnson . Patient d/c next day with 10# lifting restriction and no BLT and lumbar brace at all time , November 26 [employer] < 20# lifting and cont No BLT . Medication PRN oxycodone ,gabapentin ,muscle relaxer. Patient has back pain and leg symptoms ~ 1 year thus had MRI showed stenosis. Patient had PT made symptoms worse. Coughing/sneezing-. Bowel/bladder -. Currently has parestehesia left leg lateral hip. Aggregating walking /standing extended period with paraesthesia left lateral hip . Alleviating factors rest/medication. Symptoms affects sleeping. RTD Dec. RTW Jan 3th.. Patient condition affects QOL and function and RTW. SOCIAL: VOCATION: [employer] Objective Objective: POSTURE: mild forward posture OBSERVATION: brace intact SKIN: incision well approximated GAIT: ambulates with reciprocal pattern NEURO: c/o paresthesia left lateral hip ,reflexes L3-4 .L4-5 .L5-S1 1/3 FLEXABILITY: hamstrings min tight MMT: ( peak force) left quads 13.0 ,hamstrings 11.4 ,hip flexion 14.9 ,ankle 4/5 right leg 4/5 LUMBAR ROM: flexion mod loss ,extension mod loss ,side glides min loss Special Tests L/S Slump test left side: Negative L/S Slump test right side: Negative L/S Left Straight Leg Raise: Negative L/S Right Straight Leg Raise: Negative Balance/Special Test Scores Oswestry Low Back Score: 32 Goals Goal 1:: Patient to be I with HEP for lumbar Goal Time Frame: 4-6 Weeks Goal 2:: Patient to demonstrate 60% improvement with increase function and less pain Goal Time Frame: 4-6 Weeks Goal 3:: Patient to improve posture/body mechanics 90% OF THE TIME Goal Time Frame: 4-6 Weeks Goal 4:: Patient to improve lumbar Rom for function of recovery Goal Time Frame: 4-6 Weeks Goal 5:: Patient to improve back oswestry score by 5 points to improve QOL . Goal Time Frame: 4-6 Weeks Goal 6:: Patient to improve peak force quads/hams/hip by 10-15# to improve gait and function Goal Time Frame: 4-6 Weeks Rehabilitation Potential Physical Therapy Diagnosis: Patient underwent S/P lumbar surgery bilateral L4-L5 laminectomies ,bilateral partial facetectomy and foraminotomies and decompression L4-5 11/07 with decrease lumbar ROM ,weakness left leg ,decrease gait and endurance thus benefit from skilled PT Rehabilitation Potential: Good Anticipated Interventions Patient/Client Instruction: Educate patient on: Condition and Plan of Care For the Purpose of:: To decrease pain, To increase ROM, To improve muscle performance and motor function, To improve ability to perform ADL's, To increase tolerance to activity/condition/position, To improve performance and independence with ADL's, To improve ability of physical actions for home/community/work/leisure, To improve gait and locomotor functions, To improve health of tissue, To decrease soft tissue restriction, To increase flexibility/ROM, To improve endurance, To improve balance and To improve tolerance to ADL's Therapeutic Exercise to Include: Strength training, Endurance training, Balance training, Postural training, Flexibilty training and Dynamic Lumbar Stabilization Comment: LLE QUADS/HAMS/HIP For the Purpose of:: To decrease pain, To increase ROM, To improve muscle performance and motor function, To improve ability to perform ADL's, To increase tolerance to activity/condition/position, To improve ability of physical actions for home/community/work/leisure, To improve health of tissue, To decrease soft tissue restriction, To increase flexibility/ROM, To improve endurance and To improve tolerance to ADL's Text: Thank you for the opportunity to evaluate your patient. For Medicare and Medicare HMO plans, please review the plan of care and approve it. It will need to be FAXED BACK to us at [phone] for Medicare purposes. For Medicare only, by signing this I certify the plan of care. Please let me know if there are questions or concerns regarding this plan of care. Physician Signature: Date:
--- NOTE | 2024-01-24 11:33 | HP.PTREVAL_ITS ---
Re-Evaluation Intro: Lauren Suazo, CIARAN-C, It has been my pleasure to treat DESMOND HART over the last 9 visits for SPINAL STENOSIS LUMBAR. Please see the progress note below for an update on the physical therapy plan of care! Subjective Subjective: Brace as needed RTW possible 20 # restriction Feeling better overall no pain SOCIAL: single Get up 1 hr boxes Objective Objective/Function: POSTURE: mild forward posture OBSERVATION:WFL SKIN: WFL GAIT: ambulates with reciprocal pattern NEURO: c/o intermittent paresthesia left lateral hip ,reflexes L3-4 .L4-5 .L5- S1 1/3 FLEXABILITY: hamstrings min tight MMT: ( peak force) left quads 34.9 ,hamstrings 22.6 ,hip flexion 30.9 ,ankle 4/5 right leg 4/5 LUMBAR ROM: flexion WFL,extension min loss , loss ,side glides min loss Plan Plan Plan: S/P lumbar surgery bilateral L4-L5 laminectomies ,bilateral partial facetectomy and foraminotomies and decompression L4-5 10 LUMBAR BRACE RENAN 20# LIFTING RESTRICTION PT INTERVENTIONS DLS ,POSTURAL EX'S ,LLE STRENGTHENING QUADS/HAMS/HIP ,LE FLEXABILITY ,AND AEROBIC EX'S AND POSTURE TRAINING Balance/Gait/Functional tests Balance/Special Test Scores Oswestry Low Back Score: 20 Goals Goals Goal 1:: Patient to be I with HEP for lumbar Goal Time Frame: 4-6 Weeks Goal Progress: Progressing Goal 2:: Patient to demonstrate 60% improvement with increase function and less pain Goal Time Frame: 4-6 Weeks Goal Progress: Progressing Goal 3:: Patient to improve posture/body mechanics 90% OF THE TIME Goal Time Frame: 4-6 Weeks Goal Progress: Progressing Goal 4:: Patient to improve lumbar Rom for function of recovery Goal Time Frame: 4-6 Weeks Goal 5:: Patient to improve back oswestry score by 5 points to improve QOL .( new goal) Goal Time Frame: 4-6 Weeks Goal 6:: Patient to improve peak force quads/hams/hip by 10-15# to improve gait and function( new goal) Goal Time Frame: 4-6 Weeks Anticipated Interventions Anticipated Interventions Patient/Client Instruction: Educate patient on: Condition and Plan of Care For the Purpose of:: To decrease pain, To increase ROM, To improve muscle performance and motor function, To improve ability to perform ADL's, To increase tolerance to activity/condition/position, To improve performance and independence with ADL's, To improve ability of physical actions for home/community/work/leisure, To improve gait and locomotor functions, To improve health of tissue, To decrease soft tissue restriction, To increase flexibility/ROM, To improve endurance, To improve balance and To improve toleran ce to ADL's Therapeutic Exercise to Include: Strength training, Endurance training, Balance training, Postural training, Flexibilty training and Dynamic Lumbar Stabilization Comment: LLE QUADS/HAMS/HIP For the Purpose of:: To decrease pain, To increase ROM, To improve muscle performance and motor function, To improve ability to perform ADL's, To increase tolerance to activity/condition/position, To improve ability of physical actions for home/community/work/leisure, To improve health of tissue, To decrease soft tissue restriction, To increase flexibility/ROM, To improve endurance and To improve tolerance to ADL's Re-Evaluation Ending Re-evaluation ending: Please do not hesitate to contact me at [phone] by phone or if you have questions or concerns regarding this new plan of care! Sincerely, Sebastián Connors, PT, Cert MDT, OCS
--- NOTE | 2024-01-24 13:47 | HP.PTREVAL_ITS ---
Re-Evaluation Intro: Lauren Suazo, CIARAN-C, It has been my pleasure to treat DESMOND HART over the last 9 visits for SPINAL STENOSIS LUMBAR. Please see the progress note below for an update on the physical therapy plan of care! Subjective Subjective: Brace as needed RTW possible 20 # restriction Feeling better overall no pain SOCIAL: single Get up every 1 hr at work Objective Objective/Function: POSTURE: mild forward posture OBSERVATION:WFL SKIN: WFL GAIT: ambulates with reciprocal pattern NEURO: c/o intermittent paresthesia left lateral hip ,reflexes L3-4 .L4-5 .L5- S1 1/3 FLEXABILITY: hamstrings min tight MMT: ( peak force) left quads 34.9 ,hamstrings 22.6 ,hip flexion 30.9 ,ankle 4/5 right leg 4/5 LUMBAR ROM: flexion WFL,extension min loss , loss ,side glides min loss Plan Plan Plan: S/P lumbar surgery bilateral L4-L5 laminectomies ,bilateral partial facetectomy and foraminotomies and decompression L4-5 10 LUMBAR BRACE RENAN 20# LIFTING RESTRICTION PT INTERVENTIONS DLS ,POSTURAL EX'S ,LLE STRENGTHENING QUADS/HAMS/HIP ,LE FLEXABILITY ,AND AEROBIC EX'S AND POSTURE TRAINING Balance/Gait/Functional tests Balance/Special Test Scores Oswestry Low Back Score: 20 Goals Goals Goal 1:: Patient to be I with HEP for lumbar Goal Time Frame: 4-6 Weeks Goal Progress: Progressing Goal 2:: Patient to demonstrate 60% improvement with increase function and less pain Goal Time Frame: 4-6 Weeks Goal Progress: Progressing Goal 3:: Patient to improve posture/body mechanics 90% OF THE TIME Goal Time Frame: 4-6 Weeks Goal Progress: Progressing Goal 4:: Patient to improve lumbar Rom for function of recovery Goal Time Frame: 4-6 Weeks Goal 5:: Patient to improve back oswestry score by 5 points to improve QOL .( new goal) Goal Time Frame: 4-6 Weeks Goal 6:: Patient to improve peak force quads/hams/hip by 10-15# to improve gait and function( new goal) Goal Time Frame: 4-6 Weeks Anticipated Interventions Anticipated Interventions Patient/Client Instruction: Educate patient on: Condition and Plan of Care For the Purpose of:: To decrease pain, To increase ROM, To improve muscle performance and motor function, To improve ability to perform ADL's, To increase tolerance to activity/condition/position, To improve performance and independence with ADL's, To improve ability of physical actions for home/community/work/leisure, To improve gait and locomotor functions, To improve health of tissue, To decrease soft tissue restriction, To increase flexibility/ROM, To improve endurance, To improve balance and To improve tolerance to ADL's Therapeutic Exercise to Include: Strength training, Endurance training, Balance training, Postural training, Flexibilty training and Dynamic Lumbar Stabiliz ation Comment: LLE QUADS/HAMS/HIP For the Purpose of:: To decrease pain, To increase ROM, To improve muscle performance and motor function, To improve ability to perform ADL's, To increase tolerance to activity/condition/position, To improve ability of physical actions for home/community/work/leisure, To improve health of tissue, To decrease soft tissue restriction, To increase flexibility/ROM, To improve endurance and To improve tolerance to ADL's Re-Evaluation Ending Re-evaluation ending: Please do not hesitate to contact me at [phone] by phone or if you have questions or concerns regarding this new plan of care! Sincerely, Sebastián Connors, PT, Cert MDT, OCS
--- NOTE | 2024-04-06 17:47 | HP.PTDCSUM_ITS ---
Discharge Summary D/C summary: It has been my pleasure to treat DESMOND HART referred by Lauren Suazo NP-C, with the diagnosis of SPINAL STENOSIS LUMBAR for a total of 24 visit(s). Discharge Date: 04/06/24 Please see the following information for a summary of their discharge status. Subjective Subjective: No pain Doing well Pain Low back: Pain Intensity (Out of 10): 0 Overall Improvement % Improvement: 90 Objective Objective/Function: POSTURE: mild forward posture OBSERVATION:WFL SKIN: WFL GAIT: ambulates with reciprocal pattern NEURO: c/o intermittent paresthesia left lateral hip ,reflexes L3-4 .L4-5 .L5- S1 1/3 FLEXABILITY: hamstrings min tight MMT: ( peak force) left quads 34.9 ,hamstrings 32.6 ,hip flexion 30.9 ,ankle 4/5 right leg 4/5 LUMBAR ROM: flexion WFL,extension min loss , loss ,side glides min loss Goals Goal 1:: Patient to be I with HEP for lumbar Goal Progress: Goal Met Goal 2:: Patient to demonstrate 80% improvement with increase function and less pain( New goal) Goal Progress: Goal Met Goal 3:: Patient to improve posture/body mechanics 90% OF THE TIME Goal Progress: Goal Met Goal 4:: Patient to improve lumbar Rom for function of recovery Goal Progress: Goal Met Goal 5:: Patient to improve back oswestry score by 5 points to improve QOL .( new goal) Goal Progress: Goal Met Goal 6:: Patient to improve peak force quads/hams/hip by 10-15# to improve gait and function( new goal) Goal Progress: Goal Met Plan Plan: D/C TO HEP D/C Information Discharge Comments: HEP d/c sentence: If there are questions or concerns regarding this patient's physical therapy, please feel free to call me at [phone]. Thank you for the referral of this patient. Sincerely, Sebastián Connors, PT, Cert MDT, OCS Balance/Gait/Functional tests Balance/Special Test Scores Oswestry Low Back Score: 1 Improvement % Improvement: 90
== END 2024-04-06 19:00 | disposition home or self-care (01) ==
LOC: PT 17:00
PROVIDERS: PCP Preventive Medicine Occupational Medicine; Referring Provider Nurse Practitioner; Visit Provider Nurse Practitioner
DX: M48.061 Spinal stenosis, lumbar region without neurogenic claudication (principal)
CPT/HCPCS: 97110; 97162; 97530

== ENCOUNTER → 2024-09-15 | Outpatient (CLI) | payer OTHER, SELFPAY ==
[2024-09-15 08:18] LABS: ALB/GLOB Ratio 1.7 RATIO (0.9-2.4); AST(SGOT) 65 U/L (<=31); Alanine Aminotransfer ALT/SGPT 34 U/L (<=34); Albumin, Serum 4.6 g/dL (3.4-4.8); Alkaline Phosphatase 99 U/L (35-104); Anion Gap 12 (5-15); BUN 16 mg/dL (4-19); BUN/Creat Ratio 20.9 RATIO (10-20); Calcium,Total 9.9 mg/dL (7.6-11.0); Carbon Dioxide 25.7 mmol/L (21.0-32.0); Chloride 102 mmol/L (98-108); Cholesterol 185 mg/dL (<=200); Creatinine, Serum 0.75 mg/dL (0.70-1.20); EST Glomerular Filtration Rate 89 (>60); Globulin 2.7 g/dL (2.2-4.2); Glucose 135 mg/dL (70-99); High Density Lipoprotein 37 mg/dL; Low Density Lipoprotein Calc. 128 mg/dL; Potassium 4.5 mmol/L (3.3-5.1); Protein, Total 7.2 g/dL (5.9-8.4); Sodium Level 139 mmol/L (133-145); Total Bilirubin 0.39 mg/dL (0.00-1.30); Triglycerides 103 mg/dL; Very Low Density Lipoprotein 21 mg/dL (5-40); cholesterol:hdl ratio screen 5.07
[2024-09-15 10:51] LABS: Microalbumin,Random Urine < 12.0 mg/L (NO RANGE EST.); Microalbumin:Creatinine Ratio UNABLE TO CALCULATE mg/g CRE
== END | disposition home or self-care (01) ==
LOC: LAB 06:48
PROVIDERS: PCP Preventive Medicine Occupational Medicine; Referring Provider Preventive Medicine Occupational Medicine; Visit Provider Preventive Medicine Occupational Medicine
DX: E78.5 Hyperlipidemia, unspecified (principal); I10 Essential (primary) hypertension
CPT/HCPCS: 36415; 80053; 80061; 82043; 82570

== ENCOUNTER → 2024-10-07 | Outpatient (CLI) | payer OTHER, SELFPAY ==
--- NOTE | 2024-10-07 08:50 | US_ITS ---
PROCEDURE: ULTRASOUND ABDOMEN ELASTOGRAPHY LIMITED REASON FOR EXAM: FATTY LIVER TECHNIQUE: Right upper quadrant abdominal ultrasound along with shear wave elastography for non-invasive assessment of liver tissue stiffness. COMPARISON: 05/19/2022 ELASTOGRAPHY. FINDINGS: LIVER: Size: Enlarged Length: 22.2 cm Echotexture: Hyperechogenic parenchyma. Contour: Normal Lesions: None identified Blood flow: Hepatopetal. ELASTOGRAPHY: EQI Med: 7.2 kPa EQI Med Willie: 1.53 m/s GALLBLADDER: Surgically absent. COMMON BILE DUCT: 0.5 cm. No ductal dilatation.. PANCREAS: Normal RIGHT KIDNEY: Size measures 12.1 x 6.6 x 5.1 cm. Cortex measures 1.6 cm. US/ABD Limited w/ Elastography IMPRESSION: 1. Hepatomegaly. 2. Steatosis. 3. F 2 to F 3, moderate to severe likelihood of clinically significant hepatic fibrosis. 4. Status post cholecystectomy. Reference Values: SRU <1.37 m/s (5.7kPa): No to mild fibrosis 1.37 m/s - 2.2 m/s: Moderate to severe fibrosis >2.2 m/s (15kPa): Significant fibrosis / cirrhosis METAVIR Score F2 or higher: 1.34 m/s (5.7kPa) F3 or higher: 1.55 m/s (7.3kPa) F4: 1.80 m/s (10kPa) Reading Location: [facility]
== END | disposition home or self-care (01) ==
LOC: US 09:01
PROVIDERS: PCP Preventive Medicine Occupational Medicine; Referring Provider Preventive Medicine Occupational Medicine; Visit Provider Preventive Medicine Occupational Medicine
DX: K76.0 Fatty (change of) liver, not elsewhere classified (principal)
CPT/HCPCS: 76705; 76981

== ENCOUNTER 2024-10-10 16:20 | Outpatient (CLI) | payer OTHER, SELFPAY ==
--- NOTE | 2024-10-10 16:38 | BI_ITS ---
EXAM: SCRN MAMM (CAD)W/BILL BILAT DATE: 10/10/2024 CLINICAL HISTORY: F, Age 63 y/o , SCREENING BREAST CANCER RISK ASSESSMENT: Not reported TECHNIQUE: Bilateral screening digital breast tomosynthesis with 2D and 3D images. Computer aided detection. COMPARISON: Prior exam(s) were compared FINDINGS: TISSUE DENSITY: The breast tissue is heterogenously dense, which may obscure small masses. Bilateral Breast Mammographic Findings: No suspicious masses, calcifications or other abnormalities are identified. BI/SCRN MAMM (CAD)W/BILL BILAT IMPRESSION: OVERALL FINAL ASSESSMENT: BIRADS 1 NEGATIVE RECOMMENDATION: Routine annual follow-up in 1 Year A letter with findings and recommendations will be mailed to the patient. Reading Location: [id number]
--- NOTE | 2024-10-10 16:38 | BD_ITS ---
PROCEDURE: DEXA BONE DENSITY STUDY 10/10/2024 REASON FOR EXAM: F, age 63 y/o . Postmenopausal. TECHNIQUE: DXA scan of sites with data reported below. REFERENCE LINKS: [facility] Adult Positions COMPARISON: Prior study dated May 07, 2020. FINDINGS: BMD and T-SCORES Lumbar spine: 1.009 g/cm2, T-score -0.3 Levels: L1 through L4 Change from prior: Loss of 11.9%. Left femoral neck: 0.737 g/cm2, T-score -1.0 Femoral neck comparison data not recommended for monitoring change. Left total hip: 0.990 g/cm2, T-score 0.4 Change from prior: Loss of 3.6%. Right femoral neck: 0.819 g/cm2, T-score -0.3 Femoral neck comparison data not recommended for monitoring change. Right total hip: 0.92 g/cm2, T-score 0.3 Change from prior: Loss of 7.3%. The World Health Organization has defined the following categories based on bone density: Normal bone density: T-score equal to or greater than -1.0 Osteopenia: T-score between -1.0 and -2.5 Osteoporosis: T-score equal to or less than -2.5 The patient does meet the pharmacological treatment recommendations for prevention of osteoporosis. BD/Dexa Bone Density Study IMPRESSION: NORMAL T-SCORES. Recommend follow-up as clinically warranted. Reading Location: [id number]
== END 2024-10-10 23:59 | disposition home or self-care (01) ==
LOC: OPBD 16:37
PROVIDERS: PCP Preventive Medicine Occupational Medicine; Referring Provider Preventive Medicine Occupational Medicine; Visit Provider Preventive Medicine Occupational Medicine
DX: Z12.31 Encounter for screening mammogram for malignant neoplasm of breast (principal); Z13.820 Encounter for screening for osteoporosis
CPT/HCPCS: 77063; 77067; 77080